=== PATIENT | female | born 1980 | race Caucasian/White ===

== ENCOUNTER 2017-02-25 18:21 | Emergency (ER) | payer MEDICARE, MEDICAID ==
[2017-02-25] MEDS ORDERED: Ketorolac 60 MG/2 ML SDV IM ONE (19:22)
--- NOTE | 2017-02-25 19:43 | EDM.PDOC ---
ED HPI LOWER BACK PAIN/INJURY - General Chief Complaint: Back Pain or Injury Stated Complaint: BACK PAIN RELATED TO SEIZURES Time Seen by Provider: 02/25/17 19:00 Source of Information: Reports: Patient History Limitations: Reports: No limitations - History of Present Illness INITIAL COMMENTS - FREE TEXT/NARRATIVE: History of present illness: [36-year-old female presenting with long-standing history of seizures, she indicates she had a seizure while lying in bed approximately month ago and that after the seizure she had felt pain in her lower back which was not within her previous experience. Patient indicates that it is not abnormal to how various and sundry pain in different locations of her body after a grand mal seizure but indicates usually is self resolving within 2 weeks plus or minus.] Review of systems: As per history of present illness and below otherwise all systems reviewed and negative. Past medical history: As per history of present illness and as reviewed below otherwise noncontributory. Surgical history: As per history of present illness and as reviewed below otherwise noncontributory. Social history: No reported history of drug or alcohol abuse. Family history: As per history of present illness and as reviewed below otherwise noncontributory. Physical exam: HEENT: Atraumatic, normocephalic, pupils reactive, negative for conjunctival pallor or scleral icterus, mucous membranes moist, throat clear, neck supple, nontender, trachea midline. Lungs: Clear to auscultation, breath sounds equal bilaterally, chest nontender. Heart: S1S2, regular, negative for clicks, rubs, or JVD. Abdomen: Soft, nondistended, nontender. Negative for masses or hepatosplenomegaly. Negative for costovertebral tenderness. Pelvis: Stable nontender. Genitourinary: Deferred. Rectal: Deferred. Extremities: Atraumatic, negative for cords or calf pain. Neurovascular unremarkable. Neuro: Awake, alert, oriented. Cranial nerves II through XII unremarkable. Cerebellum unremarkable. Motor and sensory unremarkable throughout. Exam nonfocal. Patient is without neurological deficits but has significant amount of reading and finds it difficult to participate in a full thorough neuro exam. She indicates this has been ongoing for a month and that she has sought care from an ER in [place] as well as with her PCP. Her PCP prescribed physical therapy for her which is 2 months delayed secondary to lack of appointments available. She was provided with home exercises which she finds to painful to participate in. Patient is from out [facility], only be here for a few days but came in because the pain was intractable. Patient does indicate that she had taken some of her mothers Neurontin as prescribed for her mother for DDD, and that was the only thing that has given her some relief. Diagnostics: [X-ray of lumbar and sacrococcygeal area] Therapeutics: [Toradol 60mg IM] Impression: [Low back pain] Plan: [Brief run of Neurontin, patient are he has muscle relaxer from PCP] Definitive disposition and diagnosis as appropriate pending reevaluation and review of above. - Related Data Allergies/ADRs: Allergies Allergy/AdvReac Type Severity Reaction Status Date / Time meperidine [From Demerol] Allergy Hives Verified 02/25/17 19:21 methylprednisolone Allergy Nausea and Verified 02/25/17 19:21 [From Medrol] Vomiting nalbuphine [From Nubain] Allergy Nausea and Verified 02/25/17 19:21 Vomiting ondansetron Allergy Hives Verified 02/25/17 19:21 [From Zofran (as hydrochloride)] sulfamethoxazole Allergy Itching Verified 02/25/17 19:21 [From Bactrim] sumatriptan [From Imitrex] Allergy Headache Verified 02/25/17 19:21 trimethoprim [From Bactrim] Allergy Itching Verified 02/25/17 19:21 Home Meds: Home Meds Gabapentin [Neurontin] 100 mg PO TID #30 capsule 02/25/17 [Rx] Pantoprazole Sodium [Protonix] 40 mg PO DAILY 02/25/17 [History] Zonisamide [Zonegran] 100 mg 02/25/17 [History] carBAMazepine [Tegretol] 200 mg PO BID 02/25/17 [History] clonazePAM [Clonazepam] 1 mg PO TID 02/25/17 [History] Past Medical History Neurological History: Reports: Seizure Other Neuro History: Epilepsy ED ROS GENERAL - Review of Systems Review Of Systems: See Below (See history of present illness) ED EXAM,LOWER BACK PAIN/INJURY - Physical Exam Exam: See Below (See history of present illness) Course - Vital Signs Last Recorded V/S: Last Vital Signs Temp 36.1 C 02/25/17 18:59 Pulse 97 02/25/17 18:59 Resp 16 02/25/17 18:59 BP 120/84 02/25/17 18:59 Pulse Ox 98 02/25/17 18:59 - Orders/Labs/Meds Orders: Active Orders 24 hr Category Date Time Status Lumbar Spine 2 or 3V [CR] Stat Exams 02/25/17 19:22 Taken Sacrum Coccyx Min 2V [CR] Stat Exams 02/25/17 19:22 Taken Meds: Medications Discontinued Medications Generic Name Dose Route Start Last Admin Trade Name Amara PRN Reason Stop Dose Admin Hydromorphone HCl 1 mg 02/25/17 20:07 02/25/17 20:19 Dilaudid IM 02/25/17 20:08 1 mg ONETIME ONE Administration Ketorolac Tromethamine 60 mg 02/25/17 19:22 02/25/17 20:20 Toradol IM 02/25/17 19:23 Not Given ONETIME ONE Departure - Departure Time of Disposition: 20:29 Disposition: Home, Self-Care 01 Condition: good Clinical Impression: Back pain Qualifiers: Back pain location: low back pain Chronicity: chronic Back pain laterality: midline Sciatica presence: unspecified whether sciatica present Qualified Code(s ): M54.5 - Low back pain; G89.29 - Other chronic pain Prescriptions: Gabapentin [Neurontin] 100 mg PO TID #30 capsule Forms: ED Department Discharge Additional Instructions: The following information is given to patients seen in the emergency department who are being discharged to home. This information is to outline your options for follow-up care. We provide all patients seen in our emergency department with a follow-up referral. The need for follow-up, as well as the timing and circumstances, are variable depending upon the specifics of your emergency department visit. If you don't have a primary care physician on staff, we will provide you with a referral. We always advise you to contact your personal physician following an emergency department visit to inform them of the circumstance of the visit and for follow-up with them and/or the need for any referrals to a consulting specialist. The emergency department will also refer you to a specialist when appropriate. This referral assures that you have the opportunity for follow-up care with a specialist. All of these measure are taken in an effort to provide you with optimal care, which includes your follow-up. Under all circumstances we always encourage you to contact your private physician who remains a resource for coordinating your care. When calling for follow-up care, please make the office aware that this follow-up is from your recent emergency room visit. If for any reason you are refused follow-up, please contact the Emergency Department at and asked to speak to the emergency department charge nurse. Take medication as directed All the PCP as discussed beginning of next week as soon as possible return ED as needed as discussed - My Orders Last 24 Hours: My Active Orders 02/25/17 19:22 Lumbar Spine 2 or 3V [CR] Stat Sacrum Coccyx Min 2V [CR] Stat - Assessment/Plan Last 24 Hours: My Active Orders 02/25/17 19:22 Lumbar Spine 2 or 3V [CR] Stat Sacrum Coccyx Min 2V [CR] Stat
[2017-02-25] MEDS ORDERED: HYDROmorphone 1 MG/ML Syringe IM ONE (20:07)
[2017-02-25 20:56] VITALS: BP 118/76
--- NOTE | 2017-02-26 10:30 | CR ---
EXAM DATE: 02/25/17 PATIENT'S AGE: 36 Patient: February Facility: [place], [place] Site . Site : 1980 Study: XRay Pelvis SACRUM COCCYX [id number]/12/2017 7:58:17 PM Ordering Physician: Doctor Schumacher Final Report: INDICATION: PAIN TECHNIQUE: Sacrum/coccyx series COMPARISON: None FINDINGS: Bones: No fractures or bone lesions. Joint spaces: Unremarkable. Other: 2 tubal ligation clips within the left pelvis. IMPRESSION: No acute bony abnormality. Dictated by Oscar Wells MD @ 02/25/2017 8:09:55 PM Dictated by: Oscar Wells MD @ 02/25/2017 20:10:04 (Electronic Signature) Report Signed by Proxy and Original Signed Document filed in the Medical Record. MTDColleen
--- NOTE | 2017-02-26 10:31 | CR ---
EXAM DATE: 02/25/17 PATIENT'S AGE: 36 Patient: February Facility: [place], [place] Site . Site : 1980 Study: XRay Spine Lumbar [id number]/12/2017 7:58:37 PM Ordering Physician: Doctor Schumacher Final Report: INDICATION: PAIN TECHNIQUE: Lumbar spine 2 view COMPARISON: None FINDINGS: Bones: Electrode curvature of the lumbar spine. No fractures or significant bone lesions. Joints: Mild multilevel degenerative changes. Soft tissues: 2 tubal ligation clips within the left pelvis. IMPRESSION: No acute abnormality of the lumbar spine. Dictated by Oscar Wells MD @ 02/25/2017 8:12:49 PM Dictated by: Oscar Wells MD @ 02/25/2017 20:12:58 (Electronic Signature) Report Signed by Proxy and Original Signed Document filed in the Medical Record. MTDColleen
== END 2017-02-25 20:42 | disposition home or self-care (01) ==
LOC: MW.ED 18:21
DX: M54.5 Low back pain (principal); G89.29 Other chronic pain; Z88.8 Allergy status to other drugs, medicaments and biological substances; Z88.2 Allergy status to sulfonamides; Z79.899 Other long term (current) drug therapy
CPT/HCPCS: 72100; 72220; 96372; 99283; J1170

== ENCOUNTER 2017-12-18 19:25 | Emergency (ER) | payer MEDICARE, MEDICAID ==
--- NOTE | 2017-12-18 20:01 | EDM.PDOC ---
ED HPI GENERAL MEDICAL PROBLEM - General Stated Complaint: PT HAS BACK PAIN Time Seen by Provider: 12/18/17 20:00 Source of Information: Reports: Patient - History of Present Illness INITIAL COMMENTS - FREE TEXT/NARRATIVE: HISTORY AND PHYSICAL: History of present illness: [Patient had a slip and fall on the ice 248 hours prior to arrival She arrives by private vehicle She states that she slipped and fell to her bottom twice since she has had 6 out of 10 low back pain radiating down the right leg no footdrop or saddle anesthesia, she complains of a numbness sensation in her leg but has full sensory, right leg raise past 30 since not increased radiculopathy she does have discomfort with this, with distraction she is able to raise her leg with minimal pain, tender over right paraspinous muscle in the lumbar area. She also complains of 6 out of 10 foot and ankle pain unable to bear weight entire limb is neurovascularly intact no bruising she is tender on the medial malleolus as well as dorsum of her foot unable to bear weight with due to pain No fever nausea vomiting chills sweats no chest pain shortness breath headache dizziness or palpitation no bowel or urine symptoms no headache injury or loss of consciousness Review of systems: As per history of present illness and below otherwise all systems reviewed and negative. Past medical history: As per history of present illness and as reviewed below otherwise noncontributory. Surgical history: As per history of present illness and as reviewed below otherwise noncontributory. Social history: No reported history of drug or alcohol abuse. Family history: As per history of present illness and as reviewed below otherwise noncontributory. Physical exam: HEENT: Atraumatic, normocephalic, pupils reactive, negative for conjunctival pallor or scleral icterus, mucous membranes moist, throat clear, neck supple, nontender, trachea midline. Lungs: Clear to auscultation, breath sounds equal bilaterally, chest nontender. Heart: S1S2, regular, negative for clicks, rubs, or JVD. Abdomen: Soft, nondistended, nontender. Negative for masses or hepatosplenomegaly. Negative for costovertebral tenderness. Pelvis: Stable nontender. Genitourinary: Deferred. Rectal: Deferred. Extremities: Atraumatic, negative for cords or calf pain. Neurovascular unremarkable. Neuro: Awake, alert, oriented. Cranial nerves II through XII unremarkable. Cerebellum unremarkable. Motor and sensory unremarkable throughout. Exam nonfocal. No footdrop or saddle anesthesia Right lower extremity as per history of present illness Diagnostics: Lumbar spine plain films UA hCG Foot 3 views Ankle 3 views Patient refuses splint for ankle-foot/sprain Refuses crutches Request by Mat as it's the only thing that will work ] Therapeutics: [Toradol 60 IM Cataflam 50 mg by mouth 3 times a day when necessary #30 no refill Robaxin 1000 mg by mouth 4 times a day when necessary #40 no refill ] Impression: [Low back pain, right sciatic distribution pain numbness Right paraspinous muscle spasm lumbar spine Right foot and ankle pain post fall Definitive disposition and diagnosis as appropriate pending reevaluation and review of above. lower back Pain Score (Numeric/FACES): 10 - Related Data Allergies Allergy/AdvReac Type Severity Reaction Status Date / Time meperidine [From Demerol] Allergy Hives Verified 12/18/17 20:04 methylprednisolone Allergy Nausea and Verified 12/18/17 20:04 [From Medrol] Vomiting nalbuphine [From Nubain] Allergy Nausea and Verified 12/18/17 20:04 Vomiting ondansetron Allergy Hives Verified 12/18/17 20:04 [From Zofran (as hydrochloride)] sulfamethoxazole Allergy Itching Verified 12/18/17 20:04 [From Bactrim] sumatriptan [From Imitrex] Allergy Headache Verified 12/18/17 20:04 trimethoprim [From Bactrim] Allergy Itching Verified 12/18/17 20:04 Home Meds: Home Meds Gabapentin [Neurontin] 100 mg PO TID #30 capsule 02/25/17 [Rx] Pantoprazole Sodium [Protonix] 40 mg PO DAILY 02/25/17 [History] Zonisamide [Zonegran] 100 mg 02/25/17 [History] carBAMazepine [Tegretol] 200 mg PO BID 02/25/17 [History] clonazePAM [Clonazepam] 1 mg PO TID 02/25/17 [History] Past Medical History Neurological History: Reports: Seizure Other Neuro History: Epilepsy ED ROS GENERAL - Review of Systems Review Of Systems: ROS reveals no pertinent complaints other than HPI. ED EXAM, GENERAL - Physical Exam Exam: See Below Course - Vital Signs Last Recorded V/S: Last Vital Signs Temp 97.5 F 12/18/17 20:04 Pulse 73 12/18/17 20:04 Resp 18 12/18/17 20:04 BP 129/84 12/18/17 20:04 Pulse Ox 98 12/18/17 20:04 - Orders/Labs/Meds Orders: Active Orders 24 hr Category Date Time Status Ankle Min 3V Rt [CR] Stat Exams 12/18/17 20:08 Taken Foot Comp Min 3V Rt [CR] Stat Exams 12/18/17 20:08 Taken Lumbar Spine 2 or 3V [CR] Stat Exams 12/18/17 20:00 Ordered Meds: Medications Discontinued Medications Generic Name Dose Route Start Last Admin Trade Name Amara PRN Reason Stop Dose Admin Ketorolac Tromethamine 60 mg 12/18/17 20:11 12/18/17 20:24 Toradol IM 12/18/17 20:12 60 mg ONETIME ONE Administration Departure - Departure Time of Disposition: 22:00 Disposition: Home, Self-Care 01 Condition: Good Clinical Impression: Low back pain, Foot pain, right - Discharge Information Referrals: PCP,None [Primary Care Provider] - Additional Instructions: Medication as prescribed Continue current home medications Return if symptoms persist or worsen Follow-up with primary care in 2 weeks at [facility] Unable to gain [place] [address] [facility] [address] [place] [address] The following information is given to patients seen in the emergency department who are being discharged to home. This information is to outline your options for follow-up care. We provide all patients seen in our emergency department with a follow-up referral. The need for follow-up, as well as the timing and circumstances, are variable depending upon the specifics of your emergency department visit. If you don't have a primary care physician on staff, we will provide you with a referral. We always advise you to contact your personal physician following an emergency department visit to inform them of the circumstance of the visit and for follow-up with them and/or the need for any referrals to a consulting specialist. The emergency department will also refer you to a specialist when appropriate. This referral assures that you have the opportunity for follow-up care with a specialist. All of these measure are taken in an effort to provide you with optimal care, which includes your follow-up. Under all circumstances we always encourage you to contact your private physician who remains a resource for coordinating your care. When calling for follow-up care, please make the office aware that this follow-up is from your recent emergency room visit. If for any reason you are refused follow-up, please contact the [facility] emergency department at and asked to speak to the emergency department charge nurse. - My Orders Last 24 Hours: My Active Orders 12/18/17 20:00 Lumbar Spine 2 or 3V [CR] Stat 12/18/17 20:08 Ankle Min 3V Rt [CR] Stat Foot Comp Min 3V Rt [CR] Stat - Assessment/Plan Last 24 Hours: My Active Orders 12/18/17 20:00 Lumbar Spine 2 or 3V [CR] Stat 12/18/17 20:08 Ankle Min 3V Rt [CR] Stat Foot Comp Min 3V Rt [CR] Stat
[2017-12-18] MEDS ORDERED: Ketorolac 60 MG/2 ML SDV IM ONE (20:11)
[2017-12-18] MEDS ORDERED: Acetaminophen/HYDROcodone 325-5 MG Tab PO ONE (22:01)
[2017-12-19 02:13] VITALS: BP 117/77
--- NOTE | 2017-12-21 11:31 | CR ---
EXAM DATE: 12/18/17 PATIENT'S AGE: 37 Patient: February Facility: [place], [place] Site . Site : 1980 Study: XRay Extremity Right foot [id number]/2/2018 9:30:17 PM Ordering Physician: Richar Dumont Final Report: INDICATION: pain, fall TECHNIQUE: Right foot 3 views COMPARISON: None. FINDINGS: Bones: Alignment is normal. No fractures or bone lesions. Joint spaces: Unremarkable. Soft tissues: Unremarkable. IMPRESSION: Unremarkable right foot. Dictated by: Jeffry Morris MD @ 12/18/2017 21:47:21 (Electronic Signature) Report Signed by Proxy. OLAMIDE
--- NOTE | 2017-12-21 11:33 | CR ---
EXAM DATE: 12/18/17 PATIENT'S AGE: 37 Patient: February Facility: [place], [place] Site . Site : 1980 Study: XRay Spine Lumbar [id number]/2/2018 9:30:42 PM Ordering Physician: Richar Dumont Final Report: INDICATION: fall TECHNIQUE: Lumbar spine 3 views. COMPARISON: None. FINDINGS: Bones: Alignment is normal. No fractures or bone lesions. Joint spaces: Disc spaces are normal. Facet joints are normal. Soft tissues: Negative. IMPRESSION: Negative lumbar spine. Dictated by: Jeffry Morris MD @ 12/18/2017 21:49:13 (Electronic Signature) Report Signed by Proxy. [facility] CENTERColleen
--- NOTE | 2017-12-21 11:35 | CR ---
EXAM DATE: 12/18/17 PATIENT'S AGE: 37 Patient: February Facility: [place], [place] Site . Site : 1980 Study: XRay Extremity Right ankle [id number]/2/2018 9:31:58 PM Ordering Physician: Richar Dumont Final Report: INDICATION: fall TECHNIQUE: Right ankle 3 views. COMPARISON: None. FINDINGS: Bones: Alignment is normal. No fractures or bone lesions. Joint spaces: Unremarkable. Soft tissues: Unremarkable. IMPRESSION: Unremarkable right ankle. Dictated by: Jeffry Morris MD @ 12/18/2017 21:43:15 (Electronic Signature) Report Signed by Proxy. [facility]OSPITALColleen
== END 2017-12-18 22:33 | disposition home or self-care (01) ==
LOC: MW.ED 19:25
DX: M54.5 Low back pain (principal); M79.671 Pain in right foot; M25.571 Pain in right ankle and joints of right foot; G40.909 Epilepsy, unspecified, not intractable, without status epilepticus; Z79.899 Other long term (current) drug therapy; Z88.2 Allergy status to sulfonamides; Z88.6 Allergy status to analgesic agent; Z88.8 Allergy status to other drugs, medicaments and biological substances; W19.XXXA Unspecified fall, initial encounter
CPT/HCPCS: 73610; 73630; 96372; 99283; A9270; J1885; 72100; 72100-26; 99284

== ENCOUNTER 2018-01-12 08:37 | Emergency (ER) | payer MEDICARE, MEDICAID ==
[2018-01-12] MEDS ORDERED: Sodium Chloride 0.9% 1,000 ML IV ONE (08:57)
[2018-01-12] MEDS ORDERED: Ketorolac 30 MG/ML SDV IVPUSH ONE (08:57)
[2018-01-12] MEDS ORDERED: Sodium Chloride 0.9% 500 ML IV SCH (09:30)
[2018-01-12] MEDS ORDERED: Promethazine 25 MG/ML SDV IM ONE (09:38)
[2018-01-12] MEDS ORDERED: diphenhydrAMINE 50 MG/ML SDV IVPUSH ONE (09:38)
[2018-01-12] MEDS ORDERED: LORazepam 2 MG/ML SDV IVPUSH ONE (09:38)
--- NOTE | 2018-01-12 09:41 | EDM.PDOC ---
ED HPI GENERAL MEDICAL PROBLEM - General Chief Complaint: Headache Stated Complaint: MIGRAINE Time Seen by Provider: 01/12/18 09:39 Source of Information: Reports: Patient - History of Present Illness INITIAL COMMENTS - FREE TEXT/NARRATIVE: HISTORY AND PHYSICAL: History of present illness: [Patient with migraine history long-standing presents with migraine symptoms consistent with her usual aura and nausea rates pain 7 out of 10 nonradiating, she states that her head hurts, she is considered for Botox injection trial scheduled on January 22 with her primary care in [place], her last head CT was performed in [place] within the last 6 months. No fever vomiting chills sweats no chest pain shortness breath dizziness or palpitation no bowel or urine symptoms Patient is somewhat mal- content as Lortab and Dilaudid are generally "the only thing that works" Posttreatment patient is napping comfortably in no distress no pain behaviors ] Patient does follow with a primary care in [place] who has referred her for Botox scheduled on January 22 for these injections Review of systems: As per history of present illness and below otherwise all systems reviewed and negative. Past medical history: As per history of present illness and as reviewed below otherwise noncontributory. Surgical history: As per history of present illness and as reviewed below otherwise noncontributory. Social history: No reported history of drug or alcohol abuse. Family history: As per history of present illness and as reviewed below otherwise noncontributory. Physical exam: HEENT: Atraumatic, normocephalic, pupils reactive, negative for conjunctival pallor or scleral icterus, mucous membranes moist, throat clear, neck supple, nontender, trachea midline. Lungs: Clear to auscultation, breath sounds equal bilaterally, chest nontender. Heart: S1S2, regular, negative for clicks, rubs, or JVD. Abdomen: Soft, nondistended, nontender. Negative for masses or hepatosplenomegaly. Negative for costovertebral tenderness. Pelvis: Stable nontender. Genitourinary: Deferred. Rectal: Deferred. Extremities: Atraumatic, negative for cords or calf pain. Neurovascular unremarkable. Neuro: Awake, alert, oriented. Cranial nerves II through XII unremarkable. Cerebellum unremarkable. Motor and sensory unremarkable throughout. Exam nonfocal. Diagnostics: [Recent head CT on file Malathi jose ] Therapeutics: [1 L normal saline bolus Phenergan 25 mg IM Ativan 1 mg IV Benadryl 50 mg IV Toradol 30 mg IV Maxalt 10 mg by mouth every 2 hours when necessary #30 no refill Fioricet No. 30 one to 2 by mouth every 6 when necessary Follow-up with primary care for Botox consideration for headache ] Impression: [Migraine headache] Definitive disposition and diagnosis as appropriate pending reevaluation and review of above. Headache Pain Score (Numeric/FACES): 10 - Related Data Allergies Allergy/AdvReac Type Severity Reaction Status Date / Time meperidine [From Demerol] Allergy Hives Verified 01/12/18 08:47 methylprednisolone Allergy Nausea and Verified 01/12/18 08:47 [From Medrol] Vomiting nalbuphine [From Nubain] Allergy Nausea and Verified 01/12/18 08:47 Vomiting ondansetron Allergy Hives Verified 01/12/18 08:47 [From Zofran (as hydrochloride)] sulfamethoxazole Allergy Itching Verified 01/12/18 08:47 [From Bactrim] sumatriptan [From Imitrex] Allergy Headache Verified 01/12/18 08:47 trimethoprim [From Bactrim] Allergy Itching Verified 01/12/18 08:47 Home Meds: Home Meds Gabapentin [Neurontin] 100 mg PO TID #30 capsule 02/25/17 [Rx] Pantoprazole Sodium [Protonix] 40 mg PO DAILY 02/25/17 [History] Zonisamide [Zonegran] 100 mg 02/25/17 [History] carBAMazepine [Tegretol] 200 mg PO BID 02/25/17 [History] clonazePAM [Clonazepam] 1 mg PO TID 02/25/17 [History] Past Medical History HEENT History: Reports: None Cardiovascular History: Reports: None Respiratory History: Reports: None Gastrointestinal History: Reports: None Genitourinary History: Reports: None 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 History: Reports: None Neurological History: Reports: Headaches, Chronic, Seizure Other Neuro History: Epilepsy Psychiatric History: Reports: Anxiety Endocrine/Metabolic History: Reports: None Hematologic History: Reports: None Immunologic History: Reports: None Oncologic (Cancer) History: Reports: None Dermatologic History: Reports: None - Infectious Disease History Infectious Disease History: Reports: Chicken Pox, Measles, Mumps - Past Surgical History Head Surgeries/Procedures: Reports: None Female Surgical History: Reports: Tubal Ligation Social & Family History - Family History Family Medical History: Noncontributory - Tobacco Use Smoking Status *Q: Never Smoker - Caffeine Use Caffeine Use: Reports: Soda - Recreational Drug Use Recreational Drug Use: No ED ROS GENERAL - Review of Systems Review Of Systems: ROS reveals no pertinent complaints other than HPI. ED EXAM, GENERAL - Physical Exam Exam: See Below Course - Orders/Labs/Meds Orders: Active Orders 24 hr Category Date Time Status Sodium Chloride 0.9% [Normal Saline] 500 ml Med 01/12/18 09:30 Active IV STAT Medication Orders Sodium Chloride (Normal Saline) 500 mls @ 999 mls/hr IV STAT DEREK Last Admin: 01/12/18 09:19 Dose: 999 mls/hr Meds: Medications Generic Name Dose Route Start Last Admin Trade Name Freq PRN Reason Stop Dose Admin Sodium Chloride 500 mls @ 999 mls/hr 01/12/18 09:30 01/12/18 09:19 Normal Saline IV 999 mls/hr STAT DEREK Administration Discontinued Medications Generic Name Dose Route Start Last Admin Trade Name Freq PRN Reason Stop Dose Admin Diphenhydramine HCl 50 mg 01/12/18 09:38 01/12/18 10:24 Benadryl IVPUSH 01/12/18 09:39 50 mg ONETIME ONE Administration Sodium Chloride 1,000 mls @ 999 mls/hr 01/12/18 08:57 01/12/18 09:19 Normal Saline IV 01/12/18 09:57 Not Given STAT ONE Ketorolac Tromethamine 30 mg 01/12/18 08:57 01/12/18 09:18 Toradol IVPUSH 01/12/18 08:58 30 mg ONETIME ONE Administration Lorazepam 1 mg 01/12/18 09:38 01/12/18 10:24 Ativan IVPUSH 01/12/18 09:39 1 mg ONETIME ONE Administration Promethazine HCl 25 mg 01/12/18 09:38 01/12/18 10:24 Phenergan IM 01/12/18 09:39 25 mg ONETIME ONE Administration Departure - Departure Time of Disposition: 10:54 Disposition: Home, Self-Care 01 Condition: Good Clinical Impression: Migraine - Discharge Information Referrals: Marcos Mcneil [Primary Care Provider] - Forms: ED Department Discharge Additional Instructions: Medication as prescribed Return if symptoms persist or worsen Follow-up with primary care for Botox injections as scheduled The following information is given to patients seen in the emergency department who are being discharged to home. This information is to outline your options for follow-up care. We provide all patients seen in our emergency department with a follow-up referral. The need for follow-up, as well as the timing and circumstances, are variable depending upon the specifics of your emergency department visit. If you don't have a primary care physician on staff, we will provide you with a referral. We always advise you to contact your personal physician following an emergency department visit to inform them of the circumstance of the visit and for follow-up with them and/or the need for any referrals to a consulting specialist. The emergency department will also refer you to a specialist when appropriate. This referral assures that you have the opportunity for follow-up care with a specialist. All of these measure are taken in an effort to provide you with optimal care, which includes your follow-up. Under all circumstances we always encourage you to contact your private physician who remains a resource for coordinating your care. When calling for follow-up care, please make the office aware that this follow-up is from your recent emergency room visit. If for any reason you are refused follow-up, please contact the [facility] emergency department at and asked to speak to the emergency department charge nurse. - My Orders Last 24 Hours: My Active Orders 01/12/18 09:30 Sodium Chloride 0.9% [Normal Saline] 500 ml IV STAT - Assessment/Plan Last 24 Hours: My Active Orders 01/12/18 09:30 Sodium Chloride 0.9% [Normal Saline] 500 ml IV STAT
[2018-01-12 11:03] VITALS: BP 121/77
== END 2018-01-12 11:04 | disposition home or self-care (01) ==
LOC: MW.ED 08:37
DX: G43.909 Migraine, unspecified, not intractable, without status migrainosus (principal); Z88.8 Allergy status to other drugs, medicaments and biological substances; Z88.2 Allergy status to sulfonamides; Z88.1 Allergy status to other antibiotic agents; Z79.899 Other long term (current) drug therapy
CPT/HCPCS: 96361; 96372; 96374; 96375; 99283; J1200; J1885; J2060; J2550; J7040

== ENCOUNTER 2018-01-27 15:59 | Inpatient (IN) | payer MEDICARE, MEDICAID ==
[2018-01-27] MEDS ORDERED: Ketorolac 30 MG/ML SDV IVPUSH ONE (16:04)
[2018-01-27] MEDS ORDERED: Sodium Chloride 0.9% 1,000 ML IV ONE (16:04)
--- NOTE | 2018-01-27 16:05 | EDM.PDOC ---
ED HPI GENERAL MEDICAL PROBLEM - General Stated Complaint: ABD PAIN Time Seen by Provider: 01/27/18 16:05 Source of Information: Reports: Patient - History of Present Illness INITIAL COMMENTS - FREE TEXT/NARRATIVE: HISTORY AND PHYSICAL: History of present illness: []Patient presents with right upper quadrant pain 10 out of 10 increasing over the last week if unable to eat any food due to pain Intractable nausea no vomiting at current no loose stools no chest pain shortness breath headache dizziness palpitation no urine symptoms Review of systems: As per history of present illness and below otherwise all systems reviewed and negative. Past medical history: As per history of present illness and as reviewed below otherwise noncontributory. Surgical history: As per history of present illness and as reviewed below otherwise noncontributory. Social history: No reported history of drug or alcohol abuse. Family history: As per history of present illness and as reviewed below otherwise noncontributory. Physical exam: HEENT: Atraumatic, normocephalic, pupils reactive, negative for conjunctival pallor or scleral icterus, mucous membranes moist, throat clear, neck supple, nontender, trachea midline. Lungs: Clear to auscultation, breath sounds equal bilaterally, chest nontender. Heart: S1S2, regular, negative for clicks, rubs, or JVD. Abdomen: Soft, nondistended, nontender. Negative for masses or hepatosplenomegaly. Negative for costovertebral tenderness. Pelvis: Stable nontender. Genitourinary: Deferred. Rectal: Deferred. Extremities: Atraumatic, negative for cords or calf pain. Neurovascular unremarkable. Neuro: Awake, alert, oriented. Cranial nerves II through XII unremarkable. Cerebellum unremarkable. Motor and sensory unremarkable throughout. Exam nonfocal. Diagnostics: [CBC CMP amylase lipase troponin ]Ultrasound right upper quadrant Therapeutics: [Liter normal saline bolus Toradol 30 mg IV] Reglan 10 mg IV Impression: Cholelithiasis Intractable pain Intractable nausea [Abdominal pain] Definitive disposition and diagnosis as appropriate pending reevaluation and review of above. RLQ Pain Score (Numeric/FACES): 10 - Related Data Allergies Allergy/AdvReac Type Severity Reaction Status Date / Time meperidine [From Demerol] Allergy Hives Verified 01/27/18 16:10 methylprednisolone Allergy Nausea and Verified 01/27/18 16:10 [From Medrol] Vomiting nalbuphine [From Nubain] Allergy Nausea and Verified 01/27/18 16:10 Vomiting ondansetron Allergy Hives Verified 01/27/18 16:10 [From Zofran (as hydrochloride)] sulfamethoxazole Allergy Itching Verified 01/27/18 16:10 [From Bactrim] sumatriptan [From Imitrex] Allergy Headache Verified 01/27/18 16:10 trimethoprim [From Bactrim] Allergy Itching Verified 01/27/18 16:10 Home Meds: Home Meds Gabapentin [Neurontin] 100 mg PO TID #30 capsule 02/25/17 [Rx] Pantoprazole Sodium [Protonix] 40 mg PO DAILY 02/25/17 [History] Zonisamide [Zonegran] 100 mg PO DAILY 02/25/17 [History] carBAMazepine [Tegretol] 200 mg PO BID 02/25/17 [History] clonazePAM [Clonazepam] 1 mg PO TID 02/25/17 [History] Past Medical History HEENT History: Reports: None Cardiovascular History: Reports: None Respiratory History: Reports: None Gastrointestinal History: Reports: None Genitourinary History: Reports: 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 Neurological History: Reports: Headaches, Chronic, Seizure Other Neuro History: Epilepsy Psychiatric History: Reports: Anxiety Endocrine/Metabolic History: Reports: None Hematologic History: Reports: None Immunologic History: Reports: None Oncologic (Cancer) History: Reports: None Dermatologic History: Reports: None - Infectious Disease History Infectious Disease History: Reports: Chicken Pox, Measles, Mumps - Past Surgical History Head Surgeries/Procedures: Reports: None Female Surgical History: Reports: Tubal Ligation Social & Family History - Family History Family Medical History: Noncontributory - Tobacco Use Smoking Status *Q: Never Smoker - Caffeine Use Caffeine Use: Reports: Soda - Recreational Drug Use Recreational Drug Use: No ED ROS GENERAL - Review of Systems Review Of Systems: ROS reveals no pertinent complaints other than HPI. ED EXAM, GENERAL - Physical Exam Exam: See Below Course - Vital Signs Last Recorded V/S: Last Vital Signs Temp 97.8 F 01/27/18 18:33 Pulse 83 01/27/18 18:33 Resp 18 01/27/18 18:33 BP 123/76 01/27/18 18:33 Pulse Ox 98 01/27/18 18:33 - Orders/Labs/Meds Orders: Active Orders 24 hr Category Date Time Status Abdomen Ltd [US] Stat Exams 01/27/18 16:23 Taken Labs: Laboratory Tests 01/27/18 01/27/18 01/27/18 Range/Units 16:15 16:15 17:25 WBC 8.72 (4.0-11.0) K/uL RBC 4.74 (4.30-5.90) M/uL Hgb 13.0 (12.0-16.0) g/dL Hct 39.1 (36.0-46.0) % MCV 82.5 (80.0-98.0) fL MCH 27.4 (27.0-32.0) pg MCHC 33.2 (31.0-37.0) g/dL RDW Std Deviation 48.5 (28.0-62.0) fl RDW Coeff of Pepe 16 H (11.0-15.0) % Plt Count 389 (150-400) K/uL MPV 9.90 (7.40-12.00) fL Neut % (Auto) 49.8 (48.0-80.0) % Lymph % (Auto) 42.0 H (16.0-40.0) % [place] % (Auto) 7.1 (0.0-15.0) % Eos % (Auto) 0.9 (0.0-7.0) % Baso % (Auto) 0.2 (0.0-1.5) % Neut # (Auto) 4.3 (1.4-5.7) K/uL Lymph # (Auto) 3.7 H (0.6-2.4) K/uL [place] # (Auto) 0.6 (0.0-0.8) K/uL Eos # (Auto) 0.1 (0.0-0.7) K/uL Baso # (Auto) 0.0 (0.0-0.1) K/uL Nucleated RBC % 0.0 /100WBC Nucleated RBCs # 0 K/uL Sodium 135 L (136-145) mmol/L Potassium 3.4 L (3.5-5.1) mmol/L Chloride 103 (98-107) mmol/L Carbon Dioxide 19.1 L (21.0-32.0) mmol/L BUN 7 (7.0-18.0) mg/dL Creatinine 0.8 (0.6-1.0) mg/dL Est Cr Clr Drug Dosing 72.65 mL/min Estimated GFR (MDRD) > 60.0 ml/min Glucose 91 (74-106) mg/dL Calcium 9.3 (8.5-10.1) mg/dL Total Bilirubin 0.2 (0.2-1.0) mg/dL AST 19 (15-37) IU/L ALT 24 (14-63) IU/L Alkaline Phosphatase 97 (46-116) U/L Troponin I < 0.050 (0.000-0.056) ng/mL Total Protein 7.8 (6.4-8.2) g/dL Albumin 4.2 (3.4-5.0) g/dL Globulin 3.6 H (2.0-3.5) g/dL Albumin/Globulin Ratio 1.2 L (1.3-2.8) Amylase 30 (25-115) U/L Lipase 98 (73-393) U/L Urine Color YELLOW Urine Appearance CLEAR Urine pH 6.5 (5.0-8.0) Ur Specific [place] <= 1.005 (1.001-1.035) Urine Protein NEGATIVE (NEGATIVE) mg/dL Urine Glucose (UA) NEGATIVE (NEGATIVE) mg/dL Urine Ketones NEGATIVE (NEGATIVE) mg/dL Urine Occult Blood NEGATIVE (NEGATIVE) Urine Nitrite NEGATIVE (NEGATIVE) Urine Bilirubin NEGATIVE (NEGATIVE) Urine Urobilinogen 0.2 (<2.0) EU/dL Ur Leukocyte Esterase TRACE (NEGATIVE) Urine RBC 0-1 (0-2/HPF) Urine WBC 0-1 (0-5/HPF) Ur Epithelial Cells OCCASIONAL (NONE-FEW) Urine Bacteria RARE (NEGATIVE) Meds: Medications Discontinued Medications Generic Name Dose Route Start Last Admin Trade Name Freq PRN Reason Stop Dose Admin Hydromorphone HCl 0.5 mg 01/27/18 18:42 Dilaudid IVPUSH ONETIME PRN Pain Hydromorphone HCl 0.5 mg 01/27/18 18:52 01/27/18 18:57 Dilaudid IV 01/27/18 18:53 0.5 mg ONETIME ONE Administration Sodium Chloride 1,000 mls @ 999 mls/hr 01/27/18 16:04 Normal Saline IV 01/27/18 17:04 STAT ONE Lactated Ringer's 1,000 mls @ 999 mls/hr 01/27/18 16:21 01/27/18 16:33 Ringers, Lactated IV 01/27/18 17:21 999 mls/hr ONETIME ONE Administration Ketorolac Tromethamine 30 mg 01/27/18 16:04 01/27/18 16:36 Toradol IVPUSH 01/27/18 16:05 30 mg ONETIME ONE Administration Metoclopramide HCl 10 mg 01/27/18 16:31 01/27/18 16:46 Reglan IV 01/27/18 16:32 Not Given ONETIME ONE Morphine Sulfate 4 mg 01/27/18 17:40 01/27/18 17:45 Morphine IVPUSH 01/27/18 17:41 4 mg ONETIME ONE Administration Promethazine HCl 25 mg 01/27/18 16:49 01/27/18 16:56 Phenergan IM 01/27/18 16:50 25 mg ONETIME ONE Administration Departure - Departure Time of Disposition: 19:07 Disposition: Refer to Observation Condition: Fair Clinical Impression: Cholelithiasis - Discharge Information Referrals: Marcos Mcneil [Primary Care Provider] - - My Orders Last 24 Hours: My Active Orders 01/27/18 16:23 Abdomen Ltd [US] Stat - Assessment/Plan Last 24 Hours: My Active Orders 01/27/18 16:23 Abdomen Ltd [US] Stat
[2018-01-27] MEDS ORDERED: Lactated Ringers 1,000 ML IV ONE (16:21)
[2018-01-27] MEDS ORDERED: Metoclopramide 10 MG/2 ML SDV IV ONE (16:31)
[2018-01-27] MEDS ORDERED: Promethazine 25 MG/ML SDV IM ONE (16:49)
[2018-01-27 17:20] LABS: CHLORIDE,CL 103 mmol/L (98-107); SODIUM,NA 135 mmol/L (136-145)
[2018-01-27] MEDS ORDERED: Morphine 4 MG/ML Syringe IVPUSH ONE (17:40)
[2018-01-27] MEDS ORDERED: HYDROmorphone 2 MG/ML Syringe IVPUSH PRN (18:42)
[2018-01-27] MEDS ORDERED: HYDROmorphone 1 MG/ML Syringe IV ONE (18:52)
[2018-01-27] MEDS ORDERED: HYDROmorphone 2 MG/ML SDV IVPUSH ONE (19:14)
--- NOTE | 2018-01-27 19:52 | PCM.HP ---
H&P History of Present Illness - General Date of Service: 01/27/18 Admit Problem/Dx: Admission Diagnosis/Problem Admission Diagnosis/Problem Cholelithiasis Source of Information: Patient, Family, Provider - History of Present Illness Initial Comments - Free Text/Narative: She was seen in the ED with RUQ pain. She reports vomiting for several days with RUQ pain worse today. In the ED her abdominal ultrasound showed cholelithiasis. No fever She has no known prior history of cholelithiasis. RLQ Pain Score (Numeric/FACES): 10 - Related Data Allergies/Adverse Reactions: Allergies Allergy/AdvReac Type Severity Reaction Status Date / Time meperidine [From Demerol] Allergy Hives Verified 01/27/18 16:10 methylprednisolone Allergy Nausea and Verified 01/27/18 16:10 [From Medrol] Vomiting nalbuphine [From Nubain] Allergy Nausea and Verified 01/27/18 16:10 Vomiting ondansetron Allergy Hives Verified 01/27/18 16:10 [From Zofran (as hydrochloride)] sulfamethoxazole Allergy Itching Verified 01/27/18 16:10 [From Bactrim] sumatriptan [From Imitrex] Allergy Headache Verified 01/27/18 16:10 trimethoprim [From Bactrim] Allergy Itching Verified 01/27/18 16:10 Home Medications: Home Meds Gabapentin [Neurontin] 100 mg PO TID #30 capsule 02/25/17 [Rx] Pantoprazole Sodium [Protonix] 40 mg PO DAILY 02/25/17 [History] Zonisamide [Zonegran] 100 mg PO DAILY 02/25/17 [History] carBAMazepine [Tegretol] 200 mg PO BID 02/25/17 [History] clonazePAM [Clonazepam] 1 mg PO TID 02/25/17 [History] Past Medical History HEENT History: Reports: None Cardiovascular History: Reports: None Respiratory History: Reports: None Gastrointestinal History: Reports: None Genitourinary History: Reports: None 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 History: Reports: None Neurological History: Reports: Headaches, Chronic, Migraines, Seizure Other Neuro History: Epilepsy Psychiatric History: Reports: Anxiety Endocrine/Metabolic History: Reports: None Hematologic History: Reports: None Immunologic History: Reports: None Oncologic (Cancer) History: Reports: None Dermatologic History: Reports: None - Infectious Disease History Infectious Disease History: Reports: Chicken Pox, Measles, Mumps - Past Surgical History Head Surgeries/Procedures: Reports: None Female Surgical History: Reports: Tubal Ligation Social & Family History - Family History Family Medical History: Noncontributory - Tobacco Use Smoking Status *Q: Never Smoker Second Hand Smoke Exposure: No - Caffeine Use Caffeine Use: Reports: Soda - Recreational Drug Use Recreational Drug Use: No H&P Review of Systems - Review of Systems: Review Of Systems: See Below General: Denies: Fever, Chills Pulmonary: Denies: Shortness of Breath, Cough, Sputum Cardiovascular: Denies: Chest Pain, Palpitations Gastrointestinal: Reports: Abdominal Pain, Nausea. Denies: Black Stool, Bloody Stool, Hematochezia, Melena Genitourinary: Denies: Dysuria, Hematuria Skin: Denies: Cyanosis Psychiatric: Denies: Confusion Review of Systems Comment:: she uses oxycodone at home for back pain and headaches Exam - Exam Exam: See Below - Vital Signs Vital Signs: Last Vital Signs Temp 97.8 F 01/27/18 18:33 Pulse 97 01/27/18 19:44 Resp 17 01/27/18 19:44 BP 97/67 01/27/18 19:44 Pulse Ox 95 01/27/18 19:45 Weight: 78.471 kg - Exam General: Alert, Oriented HEENT: Other (dry oral mucosa) Neck: Supple Lungs: Clear to Auscultation, Normal Respiratory Effort Cardiovascular: Regular Rate, Regular Rhythm GI/Abdominal Exam: Soft, Other (moderate RUQ tenderness). No: Non-Tender Skin: Warm, Dry Neurological: Cranial Nerves Intact, Normal Speech Neuro Extensive - Mental Status: Normal Mood/Affect Psychiatric: No: Agitated - Patient Data Lab Results Last 24 hrs: Laboratory Results - last 24 hr 01/27/18 01/27/18 01/27/18 Range/Units 16:15 16:15 17:25 WBC 8.72 (4.0-11.0) K/uL RBC 4.74 (4.30-5.90) M/uL Hgb 13.0 (12.0-16.0) g/dL Hct 39.1 (36.0-46.0) % MCV 82.5 (80.0-98.0) fL MCH 27.4 (27.0-32.0) pg MCHC 33.2 (31.0-37.0) g/dL RDW Std Deviation 48.5 (28.0-62.0) fl RDW Coeff of Pepe 16 H (11.0-15.0) % Plt Count 389 (150-400) K/uL MPV 9.90 (7.40-12.00) fL Neut % (Auto) 49.8 (48.0-80.0) % Lymph % (Auto) 42.0 H (16.0-40.0) % [place] % (Auto) 7.1 (0.0-15.0) % Eos % (Auto) 0.9 (0.0-7.0) % Baso % (Auto) 0.2 (0.0-1.5) % Neut # (Auto) 4.3 (1.4-5.7) K/uL Lymph # (Auto) 3.7 H (0.6-2.4) K/uL [place] # (Auto) 0.6 (0.0-0.8) K/uL Eos # (Auto) 0.1 (0.0-0.7) K/uL Baso # (Auto) 0.0 (0.0-0.1) K/uL Nucleated RBC % 0.0 /100WBC Nucleated RBCs # 0 K/uL Sodium 135 L (136-145) mmol/L Potassium 3.4 L (3.5-5.1) mmol/L Chloride 103 (98-107) mmol/L Carbon Dioxide 19.1 L (21.0-32.0) mmol/L BUN 7 (7.0-18.0) mg/dL Creatinine 0.8 (0.6-1.0) mg/dL Est Cr Clr Drug Dosing 72.65 mL/min Estimated GFR (MDRD) > 60.0 ml/min Glucose 91 (74-106) mg/dL Calcium 9.3 (8.5-10.1) mg/dL Total Bilirubin 0.2 (0.2-1.0) mg/dL AST 19 (15-37) IU/L ALT 24 (14-63) IU/L Alkaline Phosphatase 97 (46-116) U/L Troponin I < 0.050 (0.000-0.056) ng/mL Total Protein 7.8 (6.4-8.2) g/dL Albumin 4.2 (3.4-5.0) g/dL Globulin 3.6 H (2.0-3.5) g/dL Albumin/Globulin Ratio 1.2 L (1.3-2.8) Amylase 30 (25-115) U/L Lipase 98 (73-393) U/L Urine Color YELLOW Urine Appearance CLEAR Urine pH 6.5 (5.0-8.0) Ur Specific [place] <= 1.005 (1.001-1.035) Urine Protein NEGATIVE (NEGATIVE) mg/dL Urine Glucose (UA) NEGATIVE (NEGATIVE) mg/dL Urine Ketones NEGATIVE (NEGATIVE) mg/dL Urine Occult Blood NEGATIVE (NEGATIVE) Urine Nitrite NEGATIVE (NEGATIVE) Urine Bilirubin NEGATIVE (NEGATIVE) Urine Urobilinogen 0.2 (<2.0) EU/dL Ur Leukocyte Esterase TRACE (NEGATIVE) Urine RBC 0-1 (0-2/HPF) Urine WBC 0-1 (0-5/HPF) Ur Epithelial Cells OCCASIONAL (NONE-FEW) Urine Bacteria RARE (NEGATIVE) Result Diagrams: 01/27/18 16:15 01/27/18 16:15 *Q Meaningful Use (ADM) - VTE *Q VTE Criteria *Q: - Stroke *Q Stroke Criteria *Q: - AMI *Q AMI Criteria *Q: - Problem List (1) Cholelithiasis SNOMED Code(s): 978800601 ICD Code: K80.20 - CALCULUS OF GALLBLADDER W/O CHOLECYSTITIS W/O OBSTRUCTION Status: Acute Current Visit: Yes (2) Epilepsy SNOMED Code(s): 86025820 ICD Code: G40.909 - EPILEPSY, UNSP, NOT INTRACTABLE, WITHOUT STATUS EPILEPTICUS Status: Acute Current Visit: Yes Problem List Initiated/Reviewed/Updated: Yes Orders Last 24hrs: Active Orders 24 hr Category Date Time Status Admission Status [Patient Status] [ADT] Stat ADT 01/27/18 19:07 Active Abdomen Ltd [US] Stat Exams 01/27/18 16:23 Taken Assessment/Plan Comment:: 01/27/2018 see orders admit Dominic Abarca MD
[2018-01-27] MEDS ORDERED: HYDROmorphone 2 MG/ML SDV IVPUSH PRN (19:53)
[2018-01-27] MEDS ORDERED: Temazepam 15 MG Cap PO PRN (19:53)
[2018-01-27] MEDS ORDERED: LORazepam 2 MG/ML SDV IVPUSH PRN (19:53)
--- NOTE | 2018-01-27 20:05 | PCM.SN ---
- Free Text/Narrative Note: I spoke with Dr Akshat Dooley MD who is addiction nurse for general surgery. I asked him to see this patient tomorrow. He kindly agreed.
[2018-01-27] MEDS: Lactated Ringers 1,000 ML IV SCH (20:19)
[2018-01-27] MEDS ORDERED: fentaNYL 100 MCG/2 ML SDV IVPUSH PRN (20:50)
[2018-01-27] MEDS: carBAMazepine 200 MG Tab PO SCH (21:14)
[2018-01-27] MEDS ORDERED: Naloxone 0.4 MG/ML Syringe IVPUSH ONE ×2 (21:16→23:22)
--- NOTE | 2018-01-27 21:31 | PCM.SN ---
- Free Text/Narrative Note: Called by nursing to ICU - 1 for pt who is unresponsive and no airway reflexes. On my arrival, patient has no response to verbally or painful stimuli. Pt has no gag reflex with deep oral suctioning and respiratory rate of 4-6. Narcan 0.1mg IV was given by me with 50mL LR flush. Within 1-2 minutes the patient would open her eyes to loud verbal stimuli or light tactile stimulation with a respiratory rate of 8-10. Orders given by Dr Abarca for repeat dosing. Narcan 0.1-0.2mg IV for respiratory rate < 8 and patient unresponsive to stimulus.
[2018-01-27] MEDS: Pantoprazole 40 MG Vial IVPUSH SCH (21:48)
[2018-01-27] MEDS ORDERED: ClonazePAM 1 MG Tab PO SCH (22:00)
[2018-01-27] MEDS ORDERED: Naloxone 0.4 MG/ML Syringe IVPUSH PRN (22:31)
[2018-01-27] MEDS: Gabapentin 100 MG Cap PO SCH (22:48)
[2018-01-28] MEDS: Acetaminophen 325 MG Tab PO SCH ×4 (00:10→16:57)
[2018-01-28] MEDS: Gabapentin 100 MG Cap PO SCH (00:18)
[2018-01-28] MEDS: carBAMazepine 200 MG Tab PO SCH (00:18)
[2018-01-28] MEDS: Ketorolac 30 MG/ML SDV IVPUSH PRN ×2 (00:22→06:31)
[2018-01-28] MEDS ORDERED: carBAMazepine 200 MG Tab PO ONE (00:26)
[2018-01-28] MEDS ORDERED: Gabapentin 100 MG Cap PO ONE (00:27)
[2018-01-28] MEDS: Morphine 2 MG/ML Syringe IVPUSH PRN ×3 (01:15→14:06)
[2018-01-28] MEDS: Lactated Ringers 1,000 ML IV SCH ×3 (02:25→15:34)
[2018-01-28] MEDS: Gabapentin 800 MG Tab PO SCH ×4 (05:13→21:03)
[2018-01-28 06:02] LABS: CHLORIDE,CL 107 mmol/L (98-107); SODIUM,NA 140 mmol/L (136-145)
[2018-01-28] MEDS: ClonazePAM 1 MG Tab PO SCH ×4 (06:09→21:03)
[2018-01-28] MEDS: Promethazine 25 MG/ML SDV IM PRN ×2 (06:38→14:06)
--- NOTE | 2018-01-28 08:29 | PCM.CONS ---
<Didier Roemo - Last Filed: 01/28/18 08:24> H&P History of Present Illness - General Date of Service: 01/28/18 Admit Problem/Dx: Admission Diagnosis/Problem Admission Diagnosis/Problem Cholelithiasis Source of Information: Patient, RN Notes Reviewed History Limitations: Reports: No Limitations - History of Present Illness Initial Comments - Free Text/Narative: 37 y/o female admitted overnight for biliary colic. She states she has been fatigued, weak, nauseous, and occasionally vomiting for the past week. She has also noted occasional diarrhea. She developed RUQ/epigastric abdominal pain approximately 30 hours ago, which was severe enough for her to seek evaluation in the ED. She has been eating a generally bland diet for the past week. She denies any history of prior episodes of RUQ/epigastric postprandial pain. The pain has been fairly persistent since onset. She received narcan overnight for respiratory depression, but has been doing well since. Pain does not radiate to the back. She was admitted by the medicine service, and surgery was asked to see her in consultation. - Related Data Allergies/Adverse Reactions: Allergies Allergy/AdvReac Type Severity Reaction Status Date / Time meperidine [From Demerol] Allergy Hives Verified 01/27/18 16:10 methylprednisolone Allergy Nausea and Verified 01/27/18 16:10 [From Medrol] Vomiting nalbuphine [From Nubain] Allergy Nausea and Verified 01/27/18 16:10 Vomiting ondansetron Allergy Hives Verified 01/27/18 16:10 [From Zofran (as hydrochloride)] sulfamethoxazole Allergy Itching Verified 01/27/18 16:10 [From Bactrim] sumatriptan [From Imitrex] Allergy Headache Verified 01/27/18 16:10 trimethoprim [From Bactrim] Allergy Itching Verified 01/27/18 16:10 Home Medications: Home Meds Pantoprazole Sodium [Protonix] 40 mg PO DAILY 02/25/17 [History] Zonisamide [Zonegran] 100 mg PO DAILY 02/25/17 [History] carBAMazepine [Tegretol] 200 mg PO BID 02/25/17 [History] clonazePAM [Clonazepam] 2 mg PO TID 02/25/17 [History] Gabapentin [Neurontin] 1 tab PO TID 01/27/18 [History] Promethazine [Phenergan] 2 tab PO Q8H PRN 01/27/18 [History] Sertraline HCl [Zoloft] 1 tab PO BEDTIME 01/27/18 [History] Zonisamide [Zonegran] 3 tab PO BEDTIME 01/27/18 [History] Past Medical History HEENT History: Reports: None Cardiovascular History: Reports: None Respiratory History: Reports: None Gastrointestinal History: Reports: None Genitourinary History: Reports: None FINANCE CONSULTANT History: Reports: 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 History: Reports: None Neurological History: Reports: Other (See Below) (Epilepsy) Other Neuro History: Epilepsy Psychiatric History: Reports: Anxiety Endocrine/Metabolic History: Reports: None Hematologic History: Reports: None Immunologic History: Reports: None Oncologic (Cancer) History: Reports: None Dermatologic History: Reports: None - Infectious Disease History Infectious Disease History: Reports: Chicken Pox, Measles, Mumps - Past Surgical History Head Surgeries/Procedures: Reports: None Female Surgical History: Reports: Tubal Ligation Social & Family History - Family History Family Medical History: Noncontributory - Tobacco Use Smoking Status *Q: Former Smoker Used Tobacco, but Quit: Yes Month/Year Tobacco Last Used: 2014 Second Hand Smoke Exposure: No - Caffeine Use Caffeine Use: Reports: None - Recreational Drug Use Recreational Drug Use: No H&P Review of Systems - Review of Systems: Review Of Systems: See Below General: Reports: Weakness, Fatigue, Decreased Appetite HEENT: Reports: Headaches Pulmonary: Reports: No Symptoms Cardiovascular: Reports: No Symptoms Gastrointestinal: Reports: Abdominal Pain, Anorexia, Diarrhea, Decreased Appetite Genitourinary: Reports: No Symptoms 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: Reports: No Symptoms Skin: Reports: No Symptoms Psychiatric: Reports: No Symptoms Neurological: Reports: Headache Hematologic/Lymphatic: Reports: No Symptoms Immunologic: Reports: No Symptoms Exam - Exam Exam: See Below - Vital Signs Vital Signs: Last Vital Signs Temp 96.6 C H 01/28/18 05:00 Pulse 86 01/27/18 20:45 Resp 11 L 01/28/18 06:41 BP 108/49 L 01/28/18 06:41 Pulse Ox 100 01/28/18 06:41 Weight: 157 lb 13.616 oz - Exam General: Alert, Oriented, Cooperative HEENT: EOMI, Mucosa Moist & [place], Glasses Neck: Supple Lungs: Clear to Auscultation, Normal Respiratory Effort Cardiovascular: Regular Rate, Regular Rhythm GI/Abdominal Exam: Soft, No Distention, Tender (very mildly tender to palpation in RUQ/epigastrium. No prior surgical scars ) Extremities: Normal Inspection, No Pedal Edema Skin: Warm, Dry Neurological: Cranial Nerves Intact, Normal Speech, Normal Tone Neuro Extensive - Mental Status: Alert, Oriented x3, Normal Mood/Affect, Normal Cognition, Memory Intact Psychiatric: Alert, Normal Affect, Normal Mood - Patient Data Lab Results Last 24 hrs: Laboratory Results - last 24 hr 01/28/18 01/28/18 Range/Units 05:19 05:19 WBC 6.97 (4.0-11.0) K/uL RBC 4.09 L (4.30-5.90) M/uL Hgb 11.2 L (12.0-16.0) g/dL Hct 34.2 L (36.0-46.0) % MCV 83.6 (80.0-98.0) fL MCH 27.4 (27.0-32.0) pg MCHC 32.7 (31.0-37.0) g/dL RDW Std Deviation 49.5 (28.0-62.0) fl RDW Coeff of Pepe 16 H (11.0-15.0) % Plt Count 330 (150-400) K/uL MPV 9.70 (7.40-12.00) fL Neut % (Auto) 46.9 L (48.0-80.0) % Lymph % (Auto) 43.3 H (16.0-40.0) % [place] % (Auto) 8.6 (0.0-15.0) % Eos % (Auto) 1.1 (0.0-7.0) % Baso % (Auto) 0.1 (0.0-1.5) % Neut # (Auto) 3.3 (1.4-5.7) K/uL Lymph # (Auto) 3.0 H (0.6-2.4) K/uL [place] # (Auto) 0.6 (0.0-0.8) K/uL Eos # (Auto) 0.1 (0.0-0.7) K/uL Baso # (Auto) 0.0 (0.0-0.1) K/uL Nucleated RBC % 0.0 /100WBC Nucleated RBCs # 0 K/uL Sodium 140 (136-145) mmol/L Potassium 3.3 L (3.5-5.1) mmol/L Chloride 107 (98-107) mmol/L Carbon Dioxide 25.6 (21.0-32.0) mmol/L BUN 6 L (7.0-18.0) mg/dL Creatinine 0.8 (0.6-1.0) mg/dL Est Cr Clr Drug Dosing 72.73 mL/min Estimated GFR (MDRD) > 60.0 ml/min Glucose 90 (74-106) mg/dL Calcium 8.3 L (8.5-10.1) mg/dL Magnesium 1.5 (1.5-2.0) mg/dL Total Bilirubin 0.3 (0.2-1.0) mg/dL AST 16 (15-37) IU/L ALT 21 (14-63) IU/L Alkaline Phosphatase 77 (46-116) U/L Total Protein 6.3 L (6.4-8.2) g/dL Albumin 3.3 L (3.4-5.0) g/dL Globulin 3.0 (2.0-3.5) g/dL Albumin/Globulin Ratio 1.1 L (1.3-2.8) Result Diagrams: 01/28/18 05:19 01/28/18 05:19 Consult PN Assessment/Plan Procedures: Procedures EMERGENCY DEPT VISIT (01/12/18) HYDRATE IV INFUSION ADD-ON (01/12/18) THER/PROPH/DIAG INJ IV PUSH (01/12/18) THER/PROPH/DIAG INJ SC/IM (01/12/18) TX/PRO/DX INJ NEW DRUG ADDON (01/12/18) X-RAY EXAM L-S SPINE 2/3 VWS (02/25/17) X-RAY EXAM OF ANKLE (12/18/17) X-RAY EXAM OF FOOT (12/18/17) X-RAY EXAM SACRUM TAILBONE (02/25/17) (1) Symptomatic cholelithiasis SNOMED Code(s): 653235622 Code(s): K80.20 - CALCULUS OF GALLBLADDER W/O CHOLECYSTITIS W/O OBSTRUCTION Current Visit: Yes Comment: Ultrasound without significant findings, as well as no leukocytosis and normal LFTs. Patient likely has symptomatic cholelithiasis, as there is no objective evidence to support a diagnosis of acute cholecystitis. Problem List Initiated/Reviewed/Updated: Yes Plan: Advance diet as tolerated. PRN analgesics. Patient was advised to eat a low-fat diet. We will see her in clinic with first-available appointment after discharge , likely sometime next week, and schedule her for elective cholecystectomy at that time. <Akshat Dooley - Last Filed: 01/28/18 09:21> H&P History of Present Illness RLQ Pain Score (Numeric/FACES): 10 Exam - Vital Signs Vital Signs: Last Vital Signs Temp 97.1 F 01/28/18 08:00 Pulse 86 01/27/18 20:45 Resp 15 01/28/18 09:00 BP 108/57 L 01/28/18 09:00 Pulse Ox 99 01/28/18 09:00 - Patient Data Lab Results Last 24 hrs: Laboratory Results - last 24 hr 01/28/18 01/28/18 Range/Units 05:19 05:19 WBC 6.97 (4.0-11.0) K/uL RBC 4.09 L (4.30-5.90) M/uL Hgb 11.2 L (12.0-16.0) g/dL Hct 34.2 L (36.0-46.0) % MCV 83.6 (80.0-98.0) fL MCH 27.4 (27.0-32.0) pg MCHC 32.7 (31.0-37.0) g/dL RDW Std Deviation 49.5 (28.0-62.0) fl RDW Coeff of Pepe 16 H (11.0-15.0) % Plt Count 330 (150-400) K/uL MPV 9.70 (7.40-12.00) fL Neut % (Auto) 46.9 L (48.0-80.0) % Lymph % (Auto) 43.3 H (16.0-40.0) % [place] % (Auto) 8.6 (0.0-15.0) % Eos % (Auto) 1.1 (0.0-7.0) % Baso % (Auto) 0.1 (0.0-1.5) % Neut # (Auto) 3.3 (1.4-5.7) K/uL Lymph # (Auto) 3.0 H (0.6-2.4) K/uL [place] # (Auto) 0.6 (0.0-0.8) K/uL Eos # (Auto) 0.1 (0.0-0.7) K/uL Baso # (Auto) 0.0 (0.0-0.1) K/uL Nucleated RBC % 0.0 /100WBC Nucleated RBCs # 0 K/uL Sodium 140 (136-145) mmol/L Potassium 3.3 L (3.5-5.1) mmol/L Chloride 107 (98-107) mmol/L Carbon Dioxide 25.6 (21.0-32.0) mmol/L BUN 6 L (7.0-18.0) mg/dL Creatinine 0.8 (0.6-1.0) mg/dL Est Cr Clr Drug Dosing 72.73 mL/min Estimated GFR (MDRD) > 60.0 ml/min Glucose 90 (74-106) mg/dL Calcium 8.3 L (8.5-10.1) mg/dL Magnesium 1.5 (1.5-2.0) mg/dL Total Bilirubin 0.3 (0.2-1.0) mg/dL AST 16 (15-37) IU/L ALT 21 (14-63) IU/L Alkaline Phosphatase 77 (46-116) U/L Total Protein 6.3 L (6.4-8.2) g/dL Albumin 3.3 L (3.4-5.0) g/dL Globulin 3.0 (2.0-3.5) g/dL Albumin/Globulin Ratio 1.1 L (1.3-2.8) Result Diagrams: 01/28/18 05:19 01/28/18 05:19 Consult PN Assessment/Plan Procedures: Procedures EMERGENCY DEPT VISIT (01/12/18) HYDRATE IV INFUSION ADD-ON (01/12/18) THER/PROPH/DIAG INJ IV PUSH (01/12/18) THER/PROPH/DIAG INJ SC/IM (01/12/18) TX/PRO/DX INJ NEW DRUG ADDON (01/12/18) X-RAY EXAM L-S SPINE 2/3 VWS (02/25/17) X-RAY EXAM OF ANKLE (12/18/17) X-RAY EXAM OF FOOT (12/18/17) X-RAY EXAM SACRUM TAILBONE (02/25/17) Plan: Patient seen and examined with Dr. Romeo. Case was discussed and laboratory and radiologic findings personally reviewed. I agree with his assessment and plan.
[2018-01-28] MEDS ORDERED: Zonisamide 50 MG Capsule PO SCH ×3 (09:00→21:00)
[2018-01-28] MEDS ORDERED: carBAMazepine 100 MG Cap.ER PO SCH (09:00)
[2018-01-28] MEDS ORDERED: HYDROmorphone 1 MG/ML Syringe IM ONE (10:01)
--- NOTE | 2018-01-28 10:38 | US ---
EXAM DATE: 01/27/18 PATIENT'S AGE: 37 Patient: February Facility: [place], [place] Site . Site : [id number] Study: US Abdomen [id number]/14/2018 5:37:34 PM Ordering Physician: Richar Dumont Final Report: INDICATION: RUQ pain TECHNIQUE: Ultrasound abdomen limited. Sonographic images of the right upper quadrant were obtained using montoya-scale and color Doppler images. COMPARISON: None FINDINGS: Liver: Normal in size with increased echotexture. No masses. No intrahepatic biliary dilatation. Gallbladder: Cholelithiasis. Normal wall thickness. No pericholecystic fluid. Common bile duct: 4 mm. Pancreas: The image portion is unremarkable. Right kidney: 9.2 x 4.3 x 4 5 cm. Normal echotexture and cortex. No masses, stones, or hydronephrosis. Vasculature: Proximal abdominal aorta and IVC are normal. IMPRESSION: 1. Cholelithiasis. 2. Diffuse fatty infiltration of the liver Dictated by Oscar Wells MD @ 01/27/2018 6:30:18 PM Dictated by: Oscar Wells MD @ 01/27/2018 18:30:24 (Electronic Signature) Report Signed by Proxy. OLAMIDE
[2018-01-28] MEDS ORDERED: HYDROmorphone 1 MG/ML Syringe IVPUSH PRN (11:02)
--- NOTE | 2018-01-28 13:00 | PCM.PN ---
- General Info Date of Service: 01/28/18 - Review of Systems General: Denies: Fever Systems Review Comment:: she is resting peacefully and sleeping but is easily arousable. She is tolerating po clear liquids. - Patient Data Vitals - Most Recent: Last Vital Signs Temp 96.8 F 01/28/18 12:00 Pulse 86 01/27/18 20:45 Resp 11 L 01/28/18 12:00 BP 99/63 01/28/18 12:00 Pulse Ox 96 01/28/18 12:09 Weight - Most Recent: 71.6 kg I&O - Last 24 Hours: Intake & Output 01/27/18 01/28/18 01/28/18 22:59 06:59 14:59 Intake Total 2804 720 Output Total 1000 800 Balance 1804 -80 Lab Results Last 24 Hours: Laboratory Results - last 24 hr 01/28/18 01/28/18 Range/Units 05:19 05:19 WBC 6.97 (4.0-11.0) K/uL RBC 4.09 L (4.30-5.90) M/uL Hgb 11.2 L (12.0-16.0) g/dL Hct 34.2 L (36.0-46.0) % MCV 83.6 (80.0-98.0) fL MCH 27.4 (27.0-32.0) pg MCHC 32.7 (31.0-37.0) g/dL RDW Std Deviation 49.5 (28.0-62.0) fl RDW Coeff of Pepe 16 H (11.0-15.0) % Plt Count 330 (150-400) K/uL MPV 9.70 (7.40-12.00) fL Neut % (Auto) 46.9 L (48.0-80.0) % Lymph % (Auto) 43.3 H (16.0-40.0) % [place] % (Auto) 8.6 (0.0-15.0) % Eos % (Auto) 1.1 (0.0-7.0) % Baso % (Auto) 0.1 (0.0-1.5) % Neut # (Auto) 3.3 (1.4-5.7) K/uL Lymph # (Auto) 3.0 H (0.6-2.4) K/uL [place] # (Auto) 0.6 (0.0-0.8) K/uL Eos # (Auto) 0.1 (0.0-0.7) K/uL Baso # (Auto) 0.0 (0.0-0.1) K/uL Nucleated RBC % 0.0 /100WBC Nucleated RBCs # 0 K/uL Sodium 140 (136-145) mmol/L Potassium 3.3 L (3.5-5.1) mmol/L Chloride 107 (98-107) mmol/L Carbon Dioxide 25.6 (21.0-32.0) mmol/L BUN 6 L (7.0-18.0) mg/dL Creatinine 0.8 (0.6-1.0) mg/dL Est Cr Clr Drug Dosing 72.73 mL/min Estimated GFR (MDRD) > 60.0 ml/min Glucose 90 (74-106) mg/dL Calcium 8.3 L (8.5-10.1) mg/dL Magnesium 1.5 (1.5-2.0) mg/dL Total Bilirubin 0.3 (0.2-1.0) mg/dL AST 16 (15-37) IU/L ALT 21 (14-63) IU/L Alkaline Phosphatase 77 (46-116) U/L Total Protein 6.3 L (6.4-8.2) g/dL Albumin 3.3 L (3.4-5.0) g/dL Globulin 3.0 (2.0-3.5) g/dL Albumin/Globulin Ratio 1.1 L (1.3-2.8) Med Orders - Current: Current Medications Acetaminophen (Tylenol) 650 mg PO Q6H [facility] Stop: 01/28/18 23:45 Last Admin: 01/28/18 11:43 Dose: 650 mg Carbamazepine (Tegretol Xr) 200 mg PO BID [facility] Last Admin: 01/28/18 08:10 Dose: 200 mg Clonazepam (Klonopin) 2 mg PO TID [facility] Last Admin: 01/28/18 06:15 Dose: 2 mg Gabapentin (Neurontin) 800 mg PO TID [facility] Last Admin: 01/28/18 06:09 Dose: 800 mg Heparin Sodium (Porcine) (Heparin Sodium) 5,000 units SUBCUT Q8H [facility] Hydromorphone HCl (Dilaudid) 1 mg IVPUSH Q3H PRN PRN Reason: Pain Lactated Ringer's (Ringers, Lactated) 1,000 mls @ 150 mls/hr IV ASDIRECTED [facility] Last Admin: 01/28/18 08:49 Dose: 150 mls/hr Ketorolac Tromethamine (Toradol) 30 mg IVPUSH Q6H PRN PRN Reason: Pain (severe 7-10) Stop: 02/01/18 23:58 Last Admin: 01/28/18 06:31 Dose: 30 mg Morphine Sulfate (Morphine) 1 mg IVPUSH Q4H PRN PRN Reason: Pain (severe 7-10) Last Admin: 01/28/18 08:00 Dose: 1 mg Naloxone HCl (Narcan) 0.1 mg IVPUSH Q2HR PRN PRN Reason: see comment Last Admin: 01/27/18 22:47 Dose: 0.1 mg Pantoprazole Sodium (Protonix Iv) 40 mg IVPUSH Q24H [facility] Last Admin: 01/27/18 21:48 Dose: 40 mg Zonisamide 300 Mg 1 each PO BEDTIME [facility] Zonisamide 100 Mg 1 each PO DAILY [facility] Last Admin: 01/28/18 08:11 Dose: 1 each Zonisamide [Zonegran (] 100 Mg) 3 each PO BEDTIME [facility] Promethazine HCl (Phenergan) 25 mg IM Q6H PRN PRN Reason: Nausea Last Admin: 01/28/18 06:38 Dose: 25 mg Discontinued Medications Carbamazepine (Tegretol Tab) 200 mg PO BID [facility] Last Admin: 01/28/18 00:18 Dose: 200 mg Carbamazepine (Tegretol Tab) 200 mg PO ONETIME ONE Stop: 01/28/18 00:27 Last Admin: 01/28/18 00:54 Dose: Not Given Clonazepam (Klonopin) 1 mg PO TID [facility] Stop: 01/28/18 00:15 Last Admin: 01/27/18 21:48 Dose: Not Given Fentanyl (Sublimaze) 50 mcg IVPUSH Q1H PRN PRN Reason: Pain Gabapentin (Neurontin) 100 mg PO TID [facility] Last Admin: 01/28/18 00:18 Dose: 100 mg Gabapentin (Neurontin) 100 mg PO ONETIME ONE Stop: 01/28/18 00:28 Last Admin: 01/28/18 00:54 Dose: Not Given Gabapentin (Neurontin) 800 mg PO TID [facility] Hydromorphone HCl (Dilaudid) 0.5 mg IVPUSH ONETIME PRN PRN Reason: Pain Hydromorphone HCl (Dilaudid) 0.5 mg IV ONETIME ONE Stop: 01/27/18 18:53 Last Admin: 01/27/18 18:57 Dose: 0.5 mg Hydromorphone HCl (Dilaudid) 2 mg IVPUSH ONETIME ONE Stop: 01/27/18 19:15 Last Admin: 01/27/18 19:19 Dose: 2 mg Hydromorphone HCl (Dilaudid) 2 mg IVPUSH Q3H PRN PRN Reason: Pain (severe 7-10) Hydromorphone HCl (Dilaudid) 1 mg IM ONETIME ONE Stop: 01/28/18 10:02 Last Admin: 01/28/18 10:20 Dose: 1 mg Sodium Chloride (Normal Saline) 1,000 mls @ 999 mls/hr IV STAT ONE Stop: 01/27/18 17:04 Last Admin: 01/27/18 20:25 Dose: Not Given Lactated Ringer's (Ringers, Lactated) 1,000 mls @ 999 mls/hr IV ONETIME ONE Stop: 01/27/18 17:21 Last Admin: 01/27/18 16:33 Dose: 999 mls/hr Ketorolac Tromethamine (Toradol) 30 mg IVPUSH ONETIME ONE Stop: 01/27/18 16:05 Last Admin: 01/27/18 16:36 Dose: 30 mg Lorazepam (Ativan) 1 mg IVPUSH Q6H PRN PRN Reason: Anxiety Metoclopramide HCl (Reglan) 10 mg IV ONETIME ONE Stop: 01/27/18 16:32 Last Admin: 01/27/18 16:46 Dose: Not Given Morphine Sulfate (Morphine) 4 mg IVPUSH ONETIME ONE Stop: 01/27/18 17:41 Last Admin: 01/27/18 17:45 Dose: 4 mg Naloxone HCl (Narcan) 0.4 mg IVPUSH ONETIME ONE Stop: 01/27/18 21:17 Last Admin: 01/27/18 21:23 Dose: 0.1 mg Naloxone HCl (Narcan) 0.1 mg IVPUSH ONETIME ONE Stop: 01/27/18 23:23 Last Admin: 01/27/18 23:27 Dose: 0.1 mg Promethazine HCl (Phenergan) 25 mg IM ONETIME ONE Stop: 01/27/18 16:50 Last Admin: 01/27/18 16:56 Dose: 25 mg Temazepam (Restoril) 15 mg PO BEDTIME PRN PRN Reason: Sleep Zonisamide (Zonisamide) 100 mg PO DAILY [facility] Zonisamide (Zonisamide) 300 mg PO BEDTIME [facility] Zonisamide (Zonisamide) 100 mg PO DAILY [facility] - Exam Lungs: Clear to Auscultation, Normal Respiratory Effort Cardiovascular: Regular Rate, Regular Rhythm GI/Abdominal Exam: Soft. No: Non-Tender (moderate RUQ tenderness ) - Problem List & Annotations (1) Cholelithiasis SNOMED Code(s): 317061202 Code(s): K80.20 - CALCULUS OF GALLBLADDER W/O CHOLECYSTITIS W/O OBSTRUCTION Status: Acute Current Visit: Yes (2) Epilepsy SNOMED Code(s): 76500426 Code(s): G40.909 - EPILEPSY, UNSP, NOT INTRACTABLE, WITHOUT STATUS EPILEPTICUS Status: Acute Current Visit: Yes - Problem List Review Problem List Initiated/Reviewed/Updated: Yes - My Orders Last 24 Hours: My Active Orders 01/27/18 20:48 Transfer Patient (Change bed) [ADT] Routine 01/27/18 20:50 Consult to Respiratory Therapy [Respiratory Care Assess and Treatment] [CONS] Routine 01/28/18 09:00 Consult to Physician [CONS] Urgent 01/28/18 11:02 HYDROmorphone [Dilaudid] 1 mg IVPUSH Q3H PRN 01/28/18 11:03 Communication Order [RC] ROUTINE 01/28/18 12:08 Transfer Patient (Change bed) [ADT] Routine 01/28/18 12:09 Pulse Oximetry [RC] CONTINUOUS 01/28/18 12:10 Cardiac Monitoring [RC] . DIRECTED 01/28/18 21:00 Patient's Own Medication [Ptom] 3 each PO BEDTIME 01/28/18 Lunch Clear Liquid Diet [DIET] - Plan Plan:: 01/27/2018 see orders admit Dominic Abarca MD 01/28/2018 to medical floor I read Dr Akshat Dooley's note restart po antiepileptics close monitoring Dominic Abarca MD
[2018-01-28] MEDS ORDERED: Gabapentin 800 MG Tab PO SCH (14:00)
[2018-01-28] MEDS: carBAMazepine 100 MG Cap.ER PO SCH (14:46)
[2018-01-28] MEDS ORDERED: fentaNYL 100 MCG/2 ML SDV IVPUSH PRN (15:52)
--- NOTE | 2018-01-28 20:23 | PCM.SN ---
- Free Text/Narrative Note: I came in the room as she is finishing eating a anne cheese burger. She gagged as if to vomit but no definite emesis seen. Complains of inadequate pain control with fentanyl. intermittently grasps at RUQ. Impression: cholelithiasis. Plan: dilaudid 1 mg q 4 hr prn advised clear liquids If not able to discharge tomorrow may need to reconsult surgery. Dominic Abarca MD
[2018-01-28] MEDS: HYDROmorphone 1 MG/ML Syringe IVPUSH PRN (20:50)
[2018-01-28] MEDS ORDERED: ZONISAMIDE 100 MG PO SCH (21:00)
[2018-01-28] MEDS ORDERED: Zonisamide 300 MG PO SCH (21:00)
[2018-01-28] MEDS: Heparin Sodium 5,000 Units/ML Vial SUBCUT SCH (21:04)
[2018-01-28] MEDS: Pantoprazole 40 MG Vial IVPUSH SCH (21:04)
[2018-01-29] MEDS: Acetaminophen 325 MG Tab PO SCH (00:29)
[2018-01-29] MEDS: HYDROmorphone 1 MG/ML Syringe IVPUSH PRN ×3 (00:57→12:17)
[2018-01-29] MEDS: Heparin Sodium 5,000 Units/ML Vial SUBCUT SCH ×2 (05:38→12:23)
[2018-01-29] MEDS: ClonazePAM 1 MG Tab PO SCH ×2 (05:42→15:19)
[2018-01-29] MEDS: Gabapentin 800 MG Tab PO SCH ×2 (05:42→15:20)
[2018-01-29 06:28] LABS: CHLORIDE,CL 106 mmol/L (98-107); SODIUM,NA 139 mmol/L (136-145)
[2018-01-29] MEDS: carBAMazepine 100 MG Cap.ER PO SCH ×2 (07:35→15:19)
[2018-01-29] MEDS: Ketorolac 30 MG/ML SDV IVPUSH PRN ×2 (07:35→13:35)
--- NOTE | 2018-01-29 11:53 | PCM.DCSUM1 ---
Discharge Summary - Discharge Data Discharge Date: 01/29/18 Discharge Disposition: Home, Self-Care 01 Condition: Fair - Discharge Diagnosis/Problem(s) (1) Cholelithiasis SNOMED Code(s): 946765142 ICD Code: K80.20 - CALCULUS OF GALLBLADDER W/O CHOLECYSTITIS W/O OBSTRUCTION Status: Acute Current Visit: Yes (2) Epilepsy SNOMED Code(s): 18788706 ICD Code: G40.909 - EPILEPSY, UNSP, NOT INTRACTABLE, WITHOUT STATUS EPILEPTICUS Status: Acute Current Visit: Yes - Patient Summary/Data Consults: Consultations 01/27/18 20:50 Consult to Respiratory Therapy [Respiratory Care Assess and Treatment] [CONS] Routine 01/28/18 09:00 Consult to Physician [CONS] Urgent Hospital Course: She was admitted with the diagnosis of cholelithiasis and biliary colic. Dr Akshat Dooley , general surgery, was consulted. He recommended conservative in hospital treatment with follow up as an outpatient. She was treated with phenergan and opioid analgesics. Shortly after coming to the medical floor she became hypopneic.This was thought secondary to Dilaudid 0.5 mg IV ordered in the ED followed by a dose of 2 mg ordered by myself while she was still in the ED. She required supplemental oxygen and she was transferred to the ICU for closer monitoring. Marc Echavarria CRNA was consulted and gave a dose of narcan 0.1 mg . The patient's breathing and hypoxia improved without resumption of pain. She was given morphine and fentanyl for pain but dilaudid seemed the most helpful. She had no further episodes of respiratory depression. A clear liquid diet was ordered but on the evening before discharge she was observed to be eating a anne cheeseburger. She did not vomit on the day of discharge. Impression: cholelithiasis biliary colic Plan: discharge home follow up with Dr Dooley dilaudid po phenergan po bland low fat diet - Discharge Plan Home Medications: Home Meds Pantoprazole Sodium [Protonix] 40 mg PO DAILY 02/25/17 [History] Zonisamide [Zonegran] 100 mg PO DAILY 02/25/17 [History] carBAMazepine [Tegretol] 200 mg PO BID 02/25/17 [History] clonazePAM [Clonazepam] 2 mg PO TID 02/25/17 [History] Gabapentin [Neurontin] 800 mg PO TID 01/27/18 [History] Promethazine [Phenergan] 50 mg PO Q8H PRN 01/27/18 [History] Sertraline HCl [Zoloft] 100 mg PO BEDTIME 01/27/18 [History] Zonisamide [Zonegran] 300 mg PO BEDTIME 01/27/18 [History] Forms: ED Department Discharge Referrals: Marcos Mcneil [Primary Care Provider] - - Patient Data Vitals - Most Recent: Last Vital Signs Temp 96.2 F 01/29/18 07:42 Pulse 80 01/29/18 07:42 Resp 22 H 01/29/18 07:42 BP 108/65 01/29/18 07:42 Pulse Ox 99 01/29/18 07:42 Weight - Most Recent: 69.49 kg I&O - Last 24 hours: Intake & Output 01/28/18 01/29/18 01/29/18 22:59 06:59 14:59 Intake Total 810 700 Output Total 550 1000 Balance 260 -300 Lab Results - Last 24 hrs: Laboratory Results - last 24 hr 01/29/18 Range/Units 05:37 Sodium 139 (136-145) mmol/L Potassium 3.6 (3.5-5.1) mmol/L Chloride 106 (98-107) mmol/L Carbon Dioxide 25.0 (21.0-32.0) mmol/L BUN 8 (7.0-18.0) mg/dL Creatinine 0.7 (0.6-1.0) mg/dL Est Cr Clr Drug Dosing 83.12 mL/min Estimated GFR (MDRD) > 60.0 ml/min Glucose 93 (74-106) mg/dL Calcium 8.5 (8.5-10.1) mg/dL Magnesium 1.6 (1.5-2.0) mg/dL Total Bilirubin 0.1 L (0.2-1.0) mg/dL AST 16 (15-37) IU/L ALT 21 (14-63) IU/L Alkaline Phosphatase 77 (46-116) U/L Total Protein 6.3 L (6.4-8.2) g/dL Albumin 3.3 L (3.4-5.0) g/dL Globulin 3.0 (2.0-3.5) g/dL Albumin/Globulin Ratio 1.1 L (1.3-2.8) Med Orders - Current: Current Medications Carbamazepine (Tegretol Xr) 200 mg PO BID@0800,1400 [facility] Last Admin: 01/29/18 07:35 Dose: 200 mg Clonazepam (Klonopin) 2 mg PO TID [facility] Last Admin: 01/29/18 05:42 Dose: 2 mg Gabapentin (Neurontin) 800 mg PO TID [facility] Last Admin: 01/29/18 05:42 Dose: 800 mg Heparin Sodium (Porcine) (Heparin Sodium) 5,000 units SUBCUT Q8H [facility] Last Admin: 01/29/18 05:38 Dose: 5,000 units Hydromorphone HCl (Dilaudid) 1 mg IVPUSH Q4H PRN PRN Reason: Pain Last Admin: 01/29/18 05:50 Dose: 1 mg Ketorolac Tromethamine (Toradol) 30 mg IVPUSH Q6H PRN PRN Reason: Pain (severe 7-10) Stop: 02/01/18 23:58 Last Admin: 01/29/18 07:35 Dose: 30 mg Naloxone HCl (Narcan) 0.1 mg IVPUSH Q2HR PRN PRN Reason: see comment Last Admin: 01/27/18 22:47 Dose: 0.1 mg Pantoprazole Sodium (Protonix Iv) 40 mg IVPUSH Q24H [facility] Last Admin: 01/28/18 21:04 Dose: 40 mg Zonisamide 100 Mg 1 each PO DAILY [facility] Last Admin: 01/29/18 11:17 Dose: 1 each Zonisamide [Zonegran (] 100 Mg) 3 each PO BEDTIME [facility] Last Admin: 01/28/18 21:02 Dose: 3 each Promethazine HCl (Phenergan) 25 mg IM Q6H PRN PRN Reason: Nausea Last Admin: 01/28/18 14:06 Dose: 25 mg Discontinued Medications Acetaminophen (Tylenol) 650 mg PO Q6H [facility] Stop: 01/28/18 23:45 Last Admin: 01/29/18 00:29 Dose: 650 mg Carbamazepine (Tegretol Tab) 200 mg PO BID [facility] Last Admin: 01/28/18 00:18 Dose: 200 mg Carbamazepine (Tegretol Tab) 200 mg PO ONETIME ONE Stop: 01/28/18 00:27 Last Admin: 01/28/18 00:54 Dose: Not Given Carbamazepine (Tegretol Xr) 200 mg PO BID [facility] Last Admin: 01/28/18 08:10 Dose: 200 mg Clonazepam (Klonopin) 1 mg PO TID [facility] Stop: 01/28/18 00:15 Last Admin: 01/27/18 21:48 Dose: Not Given Fentanyl (Sublimaze) 50 mcg IVPUSH Q1H PRN PRN Reason: Pain Fentanyl (Sublimaze) 50 mcg IVPUSH Q1H PRN PRN Reason: Pain Last Admin: 01/28/18 16:50 Dose: 50 mcg Gabapentin (Neurontin) 100 mg PO TID [facility] Last Admin: 01/28/18 00:18 Dose: 100 mg Gabapentin (Neurontin) 100 mg PO ONETIME ONE Stop: 01/28/18 00:28 Last Admin: 01/28/18 00:54 Dose: Not Given Gabapentin (Neurontin) 800 mg PO TID [facility] Hydromorphone HCl (Dilaudid) 0.5 mg IVPUSH ONETIME PRN PRN Reason: Pain Hydromorphone HCl (Dilaudid) 0.5 mg IV ONETIME ONE Stop: 01/27/18 18:53 Last Admin: 01/27/18 18:57 Dose: 0.5 mg Hydromorphone HCl (Dilaudid) 2 mg IVPUSH ONETIME ONE Stop: 01/27/18 19:15 Last Admin: 01/27/18 19:19 Dose: 2 mg Hydromorphone HCl (Dilaudid) 2 mg IVPUSH Q3H PRN PRN Reason: Pain (severe 7-10) Hydromorphone HCl (Dilaudid) 1 mg IM ONETIME ONE Stop: 01/28/18 10:02 Last Admin: 01/28/18 10:20 Dose: 1 mg Hydromorphone HCl (Dilaudid) 1 mg IVPUSH Q3H PRN PRN Reason: Pain Sodium Chloride (Normal Saline) 1,000 mls @ 999 mls/hr IV STAT ONE Stop: 01/27/18 17:04 Last Admin: 01/27/18 20:25 Dose: Not Given Lactated Ringer's (Ringers, Lactated) 1,000 mls @ 999 mls/hr IV ONETIME ONE Stop: 01/27/18 17:21 Last Admin: 01/27/18 16:33 Dose: 999 mls/hr Lactated Ringer's (Ringers, Lactated) 1,000 mls @ 150 mls/hr IV ASDIRECTED DEREK Last Admin: 01/28/18 15:34 Dose: 150 mls/hr Ketorolac Tromethamine (Toradol) 30 mg IVPUSH ONETIME ONE Stop: 01/27/18 16:05 Last Admin: 01/27/18 16:36 Dose: 30 mg Lorazepam (Ativan) 1 mg IVPUSH Q6H PRN PRN Reason: Anxiety Metoclopramide HCl (Reglan) 10 mg IV ONETIME ONE Stop: 01/27/18 16:32 Last Admin: 01/27/18 16:46 Dose: Not Given Morphine Sulfate (Morphine) 4 mg IVPUSH ONETIME ONE Stop: 01/27/18 17:41 Last Admin: 01/27/18 17:45 Dose: 4 mg Morphine Sulfate (Morphine) 1 mg IVPUSH Q4H PRN PRN Reason: Pain (severe 7-10) Last Admin: 01/28/18 14:06 Dose: 1 mg Naloxone HCl (Narcan) 0.4 mg IVPUSH ONETIME ONE Stop: 01/27/18 21:17 Last Admin: 01/27/18 21:23 Dose: 0.1 mg Naloxone HCl (Narcan) 0.1 mg IVPUSH ONETIME ONE Stop: 01/27/18 23:23 Last Admin: 01/27/18 23:27 Dose: 0.1 mg Zonisamide 300 Mg 1 each PO BEDTIME [facility] Promethazine HCl (Phenergan) 25 mg IM ONETIME ONE Stop: 01/27/18 16:50 Last Admin: 01/27/18 16:56 Dose: 25 mg Temazepam (Restoril) 15 mg PO BEDTIME PRN PRN Reason: Sleep Zonisamide (Zonisamide) 100 mg PO DAILY [facility] Zonisamide (Zonisamide) 300 mg PO BEDTIME [facility] Zonisamide (Zonisamide) 100 mg PO DAILY [facility] *Q Meaningful Use (DIS) - VTE *Q VTE Criteria *Q: - Stroke *Q Stroke Criteria *Q: - AMI *Q AMI Criteria *Q:
[2018-01-29] MEDS: Promethazine 25 MG/ML SDV IM PRN (13:52)
[2018-01-29 15:48] VITALS: BP 119/58
== END 2018-01-29 18:30 | disposition home or self-care (01) | DRG 446 ==
LOC: MW.ED 15:59 → MW.MS 19:10 → UNDOADMIN 19:59 → MW.MS 19:59 → MW.ICU 20:53 → MW.MS 01-28 13:13 → UNDODISIN 01-29 18:30
PROVIDERS: ADMIT Family Medicine; ATTEND Family Medicine
DX: K80.20 Calculus of gallbladder without cholecystitis without obstruction (principal); K80.50 Calculus of bile duct without cholangitis or cholecystitis without obstruction; R09.02 Hypoxemia; G40.909 Epilepsy, unspecified, not intractable, without status epilepticus; F41.9 Anxiety disorder, unspecified; Z79.899 Other long term (current) drug therapy; Z88.8 Allergy status to other drugs, medicaments and biological substances; Z87.891 Personal history of nicotine dependence
CPT/HCPCS: 76705; 80053; 81001; 82150; 83690; 84484; 84703; 85025; 96365; 96372; 96375; 99285; J1170 ×2; J1885; J2270; J2550; J7120; 36415; 83735; 99284; A9270-GY; C9113; J1644; J3010

== ENCOUNTER 2018-01-31 18:43 | Observation (INO) | payer MEDICARE, MEDICAID ==
[2018-01-31] MEDS ORDERED: Sodium Chloride 0.9% 1,000 ML IV ONE (19:01)
--- NOTE | 2018-01-31 19:05 | EDM.PDOC ---
ED HPI GENERAL MEDICAL PROBLEM - General Chief Complaint: Abdominal Pain Stated Complaint: GALL BLADDER PAIN Time Seen by Provider: 01/31/18 19:03 Source of Information: Reports: Patient - History of Present Illness INITIAL COMMENTS - FREE TEXT/NARRATIVE: HISTORY AND PHYSICAL: History of present illness: [Patient presents with right upper quadrant pain and known history of cholelithiasis presents with 10 out of 10 pain radiating to the back Admitted to the hospital and recently discharged 4 days ago ] No fever chills sweats no chest pain shortness breath headache dizziness palpitation about a urine symptoms Review of systems: As per history of present illness and below otherwise all systems reviewed and negative. Past medical history: As per history of present illness and as reviewed below otherwise noncontributory. Surgical history: As per history of present illness and as reviewed below otherwise noncontributory. Social history: No reported history of drug or alcohol abuse. Family history: As per history of present illness and as reviewed below otherwise noncontributory. Physical exam: HEENT: Atraumatic, normocephalic, pupils reactive, negative for conjunctival pallor or scleral icterus, mucous membranes moist, throat clear, neck supple, nontender, trachea midline. Lungs: Clear to auscultation, breath sounds equal bilaterally, chest nontender. Heart: S1S2, regular, negative for clicks, rubs, or JVD. Abdomen: Soft, nondistended, nontender. Negative for masses or hepatosplenomegaly. Negative for costovertebral tenderness. Pelvis: Stable nontender. Genitourinary: Deferred. Rectal: Deferred. Extremities: Atraumatic, negative for cords or calf pain. Neurovascular unremarkable. Neuro: Awake, alert, oriented. Cranial nerves II through XII unremarkable. Cerebellum unremarkable. Motor and sensory unremarkable throughout. Exam nonfocal. Diagnostics: [CBC CMP UA troponin lipase lactic acid blood cultures Ultrasound on file] Therapeutics: [Normal saline bolus ]Dilaudid 0.5 mg IV Toradol 30 mg IV Patient admitted for observation and pain control consult surgery Impression: Cholelithiasis ] Definitive disposition and diagnosis as appropriate pending reevaluation and review of above. RUQ Pain Score (Numeric/FACES): 10 - Related Data Allergies Allergy/AdvReac Type Severity Reaction Status Date / Time meperidine [From Demerol] Allergy Hives Verified 01/27/18 16:10 methylprednisolone Allergy Nausea and Verified 01/27/18 16:10 [From Medrol] Vomiting nalbuphine [From Nubain] Allergy Nausea and Verified 01/27/18 16:10 Vomiting ondansetron Allergy Hives Verified 01/27/18 16:10 [From Zofran (as hydrochloride)] rizatriptan [From Maxalt] Allergy Rash Verified 01/31/18 18:56 sulfamethoxazole Allergy Itching Verified 01/27/18 16:10 [From Bactrim] sumatriptan [From Imitrex] Allergy Headache Verified 01/27/18 16:10 trimethoprim [From Bactrim] Allergy Itching Verified 01/27/18 16:10 Home Meds: Home Meds Pantoprazole Sodium [Protonix] 40 mg PO DAILY 02/25/17 [History] Zonisamide [Zonegran] 100 mg PO DAILY 02/25/17 [History] carBAMazepine [Tegretol] 200 mg PO BID 02/25/17 [History] clonazePAM [Clonazepam] 2 mg PO TID 02/25/17 [History] Gabapentin [Neurontin] 800 mg PO TID 01/27/18 [History] Sertraline HCl [Zoloft] 100 mg PO BEDTIME 01/27/18 [History] Zonisamide [Zonegran] 300 mg PO BEDTIME 01/27/18 [History] HYDROmorphone [Dilaudid] 1 mg PO Q4H PRN #20 tab 01/29/18 [Rx] Promethazine [Phenergan] 25 mg PO Q4H PRN #20 tab 01/29/18 [Rx] Past Medical History HEENT History: Reports: None Cardiovascular History: Reports: None Respiratory History: Reports: None Gastrointestinal History: Reports: Cholelithiasis Genitourinary History: Reports: None [employer] History: Reports: 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 History: Reports: None Neurological History: Reports: Other (See Below) Other Neuro History: Epilepsy Psychiatric History: Reports: Anxiety Endocrine/Metabolic History: Reports: None Hematologic History: Reports: None Immunologic History: Reports: None Oncologic (Cancer) History: Reports: None Dermatologic History: Reports: None - Infectious Disease History Infectious Disease History: Reports: Chicken Pox, Measles, Mumps - Past Surgical History Head Surgeries/Procedures: Reports: None Female Surgical History: Reports: Tubal Ligation Social & Family History - Family History Family Medical History: Noncontributory - Tobacco Use Smoking Status *Q: Never Smoker Used Tobacco, but Quit: Yes Month/Year Tobacco Last Used: 2014 Second Hand Smoke Exposure: No - Caffeine Use Caffeine Use: Reports: Coffee, Soda, Tea - Recreational Drug Use Recreational Drug Use: No ED ROS GENERAL - Review of Systems Review Of Systems: ROS reveals no pertinent complaints other than HPI. ED EXAM, GENERAL - Physical Exam Exam: See Below Course - Vital Signs Last Recorded V/S: Last Vital Signs Temp 97.5 F 01/31/18 18:52 Pulse 95 01/31/18 18:52 Resp 20 01/31/18 18:52 BP 136/72 01/31/18 18:52 Pulse Ox 95 01/31/18 18:52 - Orders/Labs/Meds Orders: Active Orders 24 hr Category Date Time Status CULTURE BLOOD [BC] Stat Lab 01/31/18 19:20 Received CULTURE BLOOD [BC] Stat Lab 01/31/18 19:30 Results UA W/MICROSCOPIC [URIN] Stat Lab 01/31/18 19:02 Ordered HYDROmorphone [Dilaudid] Med 01/31/18 19:13 Active 0.5 mg IVPUSH ONETIME PRN Lactated Ringers [Ringers, Lactated] 1,000 ml Med 01/31/18 19:15 Active IV .BOLUS Blood Culture x2 Reflex Set [OM.PC] Stat Oth 01/31/18 19:02 Ordered Medication Orders Hydromorphone HCl (Dilaudid) 0.5 mg IVPUSH ONETIME PRN PRN Reason: Abdominal Pain Last Admin: 01/31/18 19:19 Dose: 0.5 mg Lactated Ringer's (Ringers, Lactated) 1,000 mls @ 999 mls/hr IV .BOLUS DEREK Last Admin: 01/31/18 19:21 Dose: 999 mls/hr Labs: Laboratory Tests 01/31/18 01/31/18 01/31/18 Range/Units 19:04 19:04 19:04 WBC 7.31 (4.0-11.0) K/uL RBC 4.39 (4.30-5.90) M/uL Hgb 11.9 L (12.0-16.0) g/dL Hct 37.0 (36.0-46.0) % MCV 84.3 (80.0-98.0) fL MCH 27.1 (27.0-32.0) pg MCHC 32.2 (31.0-37.0) g/dL RDW Std Deviation 49.3 (28.0-62.0) fl RDW Coeff of Pepe 16 H (11.0-15.0) % Plt Count 364 (150-400) K/uL MPV 9.50 (7.40-12.00) fL Neut % (Auto) 49.2 (48.0-80.0) % Lymph % (Auto) 40.9 H (16.0-40.0) % [place] % (Auto) 6.7 (0.0-15.0) % Eos % (Auto) 3.1 (0.0-7.0) % Baso % (Auto) 0.1 (0.0-1.5) % Neut # (Auto) 3.6 (1.4-5.7) K/uL Lymph # (Auto) 3.0 H (0.6-2.4) K/uL [place] # (Auto) 0.5 (0.0-0.8) K/uL Eos # (Auto) 0.2 (0.0-0.7) K/uL Baso # (Auto) 0.0 (0.0-0.1) K/uL Nucleated RBC % 0.0 /100WBC Nucleated RBCs # 0 K/uL Lactate 1.7 (0.20-2.00) mmol/L Sodium 137 (136-145) mmol/L Potassium 3.4 L (3.5-5.1) mmol/L Chloride 106 (98-107) mmol/L Carbon Dioxide 23.6 (21.0-32.0) mmol/L BUN 7 (7.0-18.0) mg/dL Creatinine 0.9 (0.6-1.0) mg/dL Est Cr Clr Drug Dosing 64.58 mL/min Estimated GFR (MDRD) > 60.0 ml/min Glucose 92 (74-106) mg/dL Calcium 8.7 (8.5-10.1) mg/dL Total Bilirubin 0.2 (0.2-1.0) mg/dL AST 14 L (15-37) IU/L ALT 21 (14-63) IU/L Alkaline Phosphatase 96 (46-116) U/L Troponin I < 0.050 (0.000-0.056) ng/mL Total Protein 7.0 (6.4-8.2) g/dL Albumin 3.6 (3.4-5.0) g/dL Globulin 3.4 (2.0-3.5) g/dL Albumin/Globulin Ratio 1.1 L (1.3-2.8) Amylase 23 L (25-115) U/L Lipase 63 L (73-393) U/L Meds: Medications Generic Name Dose Route Start Last Admin Trade Name Freq PRN Reason Stop Dose Admin Hydromorphone HCl 0.5 mg 01/31/18 19:13 01/31/18 19:19 Dilaudid IVPUSH 0.5 mg ONETIME PRN Administration Abdominal Pain Lactated Ringer's 1,000 mls @ 999 mls/hr 01/31/18 19:15 01/31/18 19:21 Ringers, Lactated IV 999 mls/hr .BOLUS DEREK Administration Discontinued Medications Generic Name Dose Route Start Last Admin Trade Name Freq PRN Reason Stop Dose Admin Sodium Chloride 1,000 mls @ 999 mls/hr 01/31/18 19:01 01/31/18 19:22 Normal Saline IV 01/31/18 20:01 Not Given STAT ONE Ketorolac Tromethamine 30 mg 01/31/18 19:41 01/31/18 19:52 Toradol IVPUSH 01/31/18 19:42 30 mg ONETIME ONE Administration Ketorolac Tromethamine Confirm 01/31/18 19:43 01/31/18 19:51 Toradol Administered 01/31/18 19:44 Not Given Dose 30 mg .ROUTE .STK-MED ONE Departure - Departure Time of Disposition: 20:18 Disposition: Refer to Observation Condition: Good Clinical Impression: Abdominal pain - Discharge Information Referrals: Marcos Mcneil [Primary Care Provider] - Forms: ED Department Discharge - My Orders Last 24 Hours: My Active Orders 01/31/18 19:02 UA W/MICROSCOPIC [URIN] Stat Blood Culture x2 Reflex Set [OM.PC] Stat 01/31/18 19:13 HYDROmorphone [Dilaudid] 0.5 mg IVPUSH ONETIME PRN 01/31/18 19:15 Lactated Ringers [Ringers, Lactated] 1,000 ml IV .BOLUS 01/31/18 19:20 CULTURE BLOOD [BC] Stat 01/31/18 19:30 CULTURE BLOOD [BC] Stat - Assessment/Plan Last 24 Hours: My Active Orders 01/31/18 19:02 UA W/MICROSCOPIC [URIN] Stat Blood Culture x2 Reflex Set [OM.PC] Stat 01/31/18 19:13 HYDROmorphone [Dilaudid] 0.5 mg IVPUSH ONETIME PRN 01/31/18 19:15 Lactated Ringers [Ringers, Lactated] 1,000 ml IV .BOLUS 01/31/18 19:20 CULTURE BLOOD [BC] Stat 01/31/18 19:30 CULTURE BLOOD [BC] Stat
[2018-01-31] MEDS ORDERED: HYDROmorphone 2 MG/ML SDV IVPUSH PRN (19:13)
[2018-01-31] MEDS ORDERED: Lactated Ringers 1,000 ML IV SCH (19:15)
[2018-01-31] MEDS ORDERED: Ketorolac 30 MG/ML SDV IVPUSH ONE (19:41)
[2018-01-31] MEDS ORDERED: Ketorolac 30 MG/ML SDV ONE (19:43)
[2018-01-31 19:51] LABS: CHLORIDE,CL 106 mmol/L (98-107); SODIUM,NA 137 mmol/L (136-145)
[2018-01-31] MEDS ORDERED: HYDROmorphone 1 MG/ML Syringe IV ONE (20:47)
--- NOTE | 2018-01-31 21:18 | PCM.HP ---
H&P History of Present Illness - General Date of Service: 01/31/18 Admit Problem/Dx: Admission Diagnosis/Problem Admission Diagnosis/Problem Abdominal pain Source of Information: Patient History Limitations: Reports: No Limitations - History of Present Illness Initial Comments - Free Text/Narative: 37-year-old female presented to emergency department with chief complaint of right upper quadrant pain radiating to the back with past medical history of cholelithiasis, migraine, and depression. Patient presented to Emergency department with chief complaint of right upper quadrant pain 10 out of 10 radiating to the back. She was recently admitted for similar symptoms on 01/27/18 at which time an abdominal ultrasound showed cholelithiasis and diffuse fatty liver. Patient was consulted by general surgery on 01/28/18 and was scheduled to follow-up in clinic for elective outpatient cholecystectomy. Patient states that after being discharged on her pain never improved. She has had progressive right upper quadrant pain radiating to the back with associated nausea and vomiting she denies any current chest pain, palpitations, shortness breath, syncopal episodes, or focal neurologic deficits. Patient does admit to several months of nausea and vomiting that she believes was associated with this cholelithiasis. States pain started approximately 1 week ago 01/27/28. Emergency department: CBC, lactate, and CMP unremarkable. Normal liver function tests as well as non- elevated bilirubin. Blood cultures were obtained. She was given 0.5 mg IV Dilaudid, 30 mg IV Toradol, and 1 L LR bolus. Patient was admitted for biliary colic. RUQ Pain Score (Numeric/FACES): 10 - Related Data Allergies/Adverse Reactions: Allergies Allergy/AdvReac Type Severity Reaction Status Date / Time meperidine [From Demerol] Allergy Hives Verified 01/27/18 16:10 methylprednisolone Allergy Nausea and Verified 01/27/18 16:10 [From Medrol] Vomiting nalbuphine [From Nubain] Allergy Nausea and Verified 01/27/18 16:10 Vomiting ondansetron Allergy Hives Verified 01/27/18 16:10 [From Zofran (as hydrochloride)] rizatriptan [From Maxalt] Allergy Rash Verified 01/31/18 18:56 sulfamethoxazole Allergy Itching Verified 01/27/18 16:10 [From Bactrim] sumatriptan [From Imitrex] Allergy Headache Verified 01/27/18 16:10 trimethoprim [From Bactrim] Allergy Itching Verified 01/27/18 16:10 Home Medications: Home Meds Pantoprazole Sodium [Protonix] 40 mg PO DAILY 02/25/17 [History] Zonisamide [Zonegran] 100 mg PO DAILY 02/25/17 [History] carBAMazepine [Tegretol] 200 mg PO BID 02/25/17 [History] clonazePAM [Clonazepam] 2 mg PO TID 02/25/17 [History] Gabapentin [Neurontin] 800 mg PO TID 01/27/18 [History] Sertraline HCl [Zoloft] 100 mg PO BEDTIME 01/27/18 [History] Zonisamide [Zonegran] 300 mg PO BEDTIME 01/27/18 [History] HYDROmorphone [Dilaudid] 1 mg PO Q4H PRN #20 tab 01/29/18 [Rx] Promethazine [Phenergan] 25 mg PO Q4H PRN #20 tab 01/29/18 [Rx] Past Medical History HEENT History: Reports: None Cardiovascular History: Reports: None Respiratory History: Reports: None Gastrointestinal History: Reports: Cholelithiasis Genitourinary History: Reports: None [employer] History: Reports: 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 History: Reports: None Neurological History: Reports: Other (See Below) Other Neuro History: Epilepsy Psychiatric History: Reports: Anxiety Endocrine/Metabolic History: Reports: None Hematologic History: Reports: None Immunologic History: Reports: None Oncologic (Cancer) History: Reports: None Dermatologic History: Reports: None - Infectious Disease History Infectious Disease History: Reports: Chicken Pox, Measles, Mumps - Past Surgical History Head Surgeries/Procedures: Reports: None Female Surgical History: Reports: Tubal Ligation Social & Family History - Family History Family Medical History: Noncontributory - Tobacco Use Smoking Status *Q: Never Smoker Used Tobacco, but Quit: Yes Month/Year Tobacco Last Used: 2014 Second Hand Smoke Exposure: No - Caffeine Use Caffeine Use: Reports: Coffee, Soda, Tea - Recreational Drug Use Recreational Drug Use: No H&P Review of Systems - Review of Systems: Review Of Systems: See Below General: Denies: Fever, Chills, Malaise HEENT: Denies: Dysphasia, Headaches, Sore Throat Pulmonary: Denies: Shortness of Breath, Wheezing, Pleuritic Chest Pain Cardiovascular: Denies: Chest Pain, Palpitations, Edema Gastrointestinal: Reports: Abdominal Pain, Decreased Appetite. Denies: Black Stool, Bloody Stool, Diarrhea, Nausea, Vomiting Genitourinary: Denies: Dysuria, Hematuria 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: Denies: Neck Pain, Leg Pain Skin: Denies: Cyanosis Psychiatric: Reports: Depression, Agitation. Denies: Confusion Neurological: Denies: Confusion, Dizziness, Headache Hematologic/Lymphatic: Denies: Anemia Immunologic: Denies: Anaphylaxis Exam - Exam Exam: See Below - Vital Signs Vital Signs: Last Vital Signs Temp 97.5 F 01/31/18 18:52 Pulse 95 01/31/18 18:52 Resp 20 01/31/18 18:52 BP 136/72 01/31/18 18:52 Pulse Ox 95 01/31/18 18:52 Weight: 78.471 kg - Exam Quality Assessment: DVT Prophylaxis General: Alert, Oriented, Cooperative, Mild Distress HEENT: Conjunctiva Clear, EACs Clear, EOMI, Hearing Intact, Mucosa Moist & [place] , Nares Patent, Normal Nasal Septum, Posterior Pharynx Clear, PERRLA Neck: Supple, Trachea Midline, 2 Lungs: Clear to Auscultation, Normal Respiratory Effort Cardiovascular: Regular Rate, Regular Rhythm, Normal S1, Normal S2 GI/Abdominal Exam: Normal Bowel Sounds, Soft, No Organomegaly, No Distention, Tender (Female) Exam: Deferred Rectal (Female) Exam: Deferred Back Exam: Normal Inspection Extremities: Normal Inspection, Non-Tender, No Pedal Edema, Normal Capillary Refill Peripheral Pulses: 2+: Radial (L), Radial (R), Posterior Tibial (L), Posterior Tibial (R), Dorsalis Pedis (L), Dorsalis Pedis (R) Skin: Warm, Dry, Intact Neurological: Cranial Nerves Intact Neuro Extensive - Mental Status: Alert, Oriented x3, Normal Mood/Affect, Normal Cognition Neuro Extensive - Motor, Sensory, Reflexes: CN II-XII Intact Psychiatric: Alert, Normal Affect, Agitated - Patient Data Result Diagrams: 01/31/18 19:04 01/31/18 19:04 *Q Meaningful Use (ADM) - VTE *Q VTE Criteria *Q: - Stroke *Q Stroke Criteria *Q: - AMI *Q AMI Criteria *Q: - Problem List (1) Migraine SNOMED Code(s): 65449863 ICD Code: G43.909 - MIGRAINE, UNSP, NOT INTRACTABLE, WITHOUT STATUS MIGRAINOSUS Status: Chronic Priority: Low Current Visit: Yes (2) Symptomatic cholelithiasis SNOMED Code(s): 861889719 ICD Code: K80.20 - CALCULUS OF GALLBLADDER W/O CHOLECYSTITIS W/O OBSTRUCTION Status: Acute Priority: High Current Visit: Yes Problem Details: Ultrasound without significant findings, as well as no leukocytosis and normal LFTs. Patient likely has symptomatic cholelithiasis, as there is no objective evidence to support a diagnosis of acute cholecystitis. Problem List Initiated/Reviewed/Updated: Yes Orders Last 24hrs: Active Orders 24 hr Category Date Time Status Patient Status [ADT] Routine ADT 01/31/18 21:01 Ordered Ambulate [RC] PER UNIT ROUTINE Care 01/31/18 21:06 Ordered Antiembolic Devices [RC] PER UNIT ROUTINE Care 01/31/18 21:03 Ordered Oxygen Therapy [RC] PRN Care 01/31/18 21:01 Ordered Up With Assistance [RC] ASDIRECTED Care 01/31/18 21:01 Ordered VTE/DVT Education [RC] PER UNIT ROUTINE Care 01/31/18 21:01 Ordered Vital Signs [RC] Q4H Care 01/31/18 21:01 Ordered Nothing per Oral Now Diet [DIET] Diet 01/31/18 Dinner Ordered CBC WITH AUTO DIFF [HEME] AM Lab 02/01/18 05:11 Ordered CBC WITH AUTO DIFF [HEME] AM Lab 02/02/18 05:11 Ordered CBC WITH AUTO DIFF [HEME] AM Lab 02/03/18 05:11 Ordered COMPREHENSIVE METABOLIC PN,CMP [CHEM] AM Lab 02/01/18 05:11 Ordered COMPREHENSIVE METABOLIC PN,CMP [CHEM] AM Lab 02/02/18 05:11 Ordered COMPREHENSIVE METABOLIC PN,CMP [CHEM] AM Lab 02/03/18 05:11 Ordered MAGNESIUM [CHEM] AM Lab 02/01/18 05:11 Ordered HYDROmorphone [Dilaudid] Med 01/31/18 21:01 Ordered 1 mg IVPUSH Q2H PRN Promethazine [Phenergan] Med 01/31/18 21:01 Ordered 25 mg IM Q6H PRN Sequential Compression Device [OM.PC] Per Unit Routine Oth 01/31/18 21:02 Ordered Resuscitation Status Routine Resus Stat 01/31/18 21:01 Ordered Medication Orders Hydromorphone HCl (Dilaudid) 0.5 mg IVPUSH ONETIME PRN PRN Reason: Abdominal Pain Last Admin: 01/31/18 19:19 Dose: 0.5 mg Hydromorphone HCl (Dilaudid) 1 mg IVPUSH Q2H PRN PRN Reason: Pain (severe 7-10) Lactated Ringer's (Ringers, Lactated) 1,000 mls @ 999 mls/hr IV .BOLUS DEREK Last Admin: 01/31/18 19:21 Dose: 999 mls/hr Promethazine HCl (Phenergan) 25 mg IM Q6H PRN PRN Reason: Nausea Assessment/Plan Comment:: 37-year-old female admitted biliary colic with history of cholelithiasis, migraine, and depression. Biliary colic: Ultrasound done on 01/28/28 showed cholelithiasis and a diffuse fatty liver. She was seen by surgery and and scheduled for outpatient elective cholecystectomy. Currently liver function tests are within normal limits as well as bilirubin. There is no leukocytosis or findings suggestive of cholecystitis. I did crisis intervention counselor Dr. Dooley, surgery, and he is aware of patient. We'll treat pain with IV Dilaudid 1 mg every 2 hours and nausea and vomiting with Phenergan 25 mg IM. Of note on previous admission it was noted that the patient was nonadherent to diet and was found eating a anne cheeseburger during rounds Dr. Abarca. Migraine: Currently stable patient has received Botox injections recently and has had good results. VTE: SCD, Ambulation, No pharm secondary to possible surgery and low risk. Dispo: 1-2 days pending.
[2018-01-31] MEDS: Lactated Ringers 1,000 ML IV SCH (22:06)
[2018-02-01] MEDS: HYDROmorphone 2 MG/ML SDV IVPUSH PRN ×2 (04:20→06:17)
[2018-02-01] MEDS: Promethazine 25 MG/ML SDV IM PRN ×2 (05:30→14:59)
[2018-02-01] MEDS: Lactated Ringers 1,000 ML IV SCH (06:29)
[2018-02-01 06:41] LABS: CHLORIDE,CL 107 mmol/L (98-107); SODIUM,NA 141 mmol/L (136-145)
[2018-02-01] MEDS: HYDROmorphone 1 MG/ML Syringe IVPUSH PRN ×4 (08:31→17:20)
[2018-02-01] MEDS ORDERED: Zonisamide 50 MG Capsule PO SCH (10:00)
--- NOTE | 2018-02-01 10:03 | PCM.PN ---
- General Info Date of Service: 02/01/18 Admission Dx/Problem (Free Text): Admission Diagnosis/Problem Admission Diagnosis/Problem Abdominal pain Subjective Update: Patient reports considerable pain. Has been requesting toradol as well as benadryl which I denied secondary to central nervous system depression and on recent admission was transferred to ICU secondary to this. Did tell her and family that no labs were elevated indicating emergent surgery. This was discussed with surgeon, Dr. Dooley who states patient will need to follow-up in clinic and stick to bland diet. Functional Status: Reports: Pain Controlled, Tolerating Diet, Ambulating, Urinating - Review of Systems General: Denies: Fever, Weakness, Fatigue HEENT: Denies: Headaches, Visual Changes Pulmonary: Denies: Shortness of Breath, Cough, Sputum Cardiovascular: Denies: Chest Pain, Orthopnea Gastrointestinal: Denies: Abdominal Pain, Diarrhea, Nausea, Vomiting Genitourinary: Denies: Dysuria 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: Denies: Neck Pain, Leg Pain Skin: Denies: Cyanosis Neurological: Denies: Confusion, Dizziness, Headache Psychiatric: Denies: Confusion - Patient Data Vitals - Most Recent: Last Vital Signs Temp 96.6 F 02/01/18 08:00 Pulse 79 02/01/18 08:00 Resp 22 H 02/01/18 08:00 BP 105/60 02/01/18 08:00 Pulse Ox 95 02/01/18 08:00 Weight - Most Recent: 78.471 kg I&O - Last 24 Hours: Intake & Output 01/31/18 02/01/18 02/01/18 22:59 06:59 14:59 Intake Total 999 Output Total 450 Balance 549 Lab Results Last 24 Hours: Laboratory Results - last 24 hr 02/01/18 02/01/18 02/01/18 Range/Units 05:00 05:50 05:50 WBC 5.82 (4.0-11.0) K/uL RBC 3.97 L (4.30-5.90) M/uL Hgb 10.9 L (12.0-16.0) g/dL Hct 33.4 L (36.0-46.0) % MCV 84.1 (80.0-98.0) fL MCH 27.5 (27.0-32.0) pg MCHC 32.6 (31.0-37.0) g/dL RDW Std Deviation 49.5 (28.0-62.0) fl RDW Coeff of Pepe 16 H (11.0-15.0) % Plt Count 322 (150-400) K/uL MPV 9.70 (7.40-12.00) fL Neut % (Auto) 43.6 L (48.0-80.0) % Lymph % (Auto) 45.5 H (16.0-40.0) % Heard % (Auto) 7.4 (0.0-15.0) % Eos % (Auto) 3.3 (0.0-7.0) % Baso % (Auto) 0.2 (0.0-1.5) % Neut # (Auto) 2.5 (1.4-5.7) K/uL Lymph # (Auto) 2.7 H (0.6-2.4) K/uL Heard # (Auto) 0.4 (0.0-0.8) K/uL Eos # (Auto) 0.2 (0.0-0.7) K/uL Baso # (Auto) 0.0 (0.0-0.1) K/uL Nucleated RBC % 0.0 /100WBC Nucleated RBCs # 0 K/uL Sodium 141 (136-145) mmol/L Potassium 3.7 (3.5-5.1) mmol/L Chloride 107 (98-107) mmol/L Carbon Dioxide 23.3 (21.0-32.0) mmol/L BUN 7 (7.0-18.0) mg/dL Creatinine 0.6 (0.6-1.0) mg/dL Est Cr Clr Drug Dosing 96.98 mL/min Estimated GFR (MDRD) > 60.0 ml/min Glucose 85 (74-106) mg/dL Calcium 8.5 (8.5-10.1) mg/dL Magnesium 1.5 (1.5-2.0) mg/dL Total Bilirubin 0.2 (0.2-1.0) mg/dL AST 15 (15-37) IU/L ALT 19 (14-63) IU/L Alkaline Phosphatase 81 (46-116) U/L Total Protein 5.9 L (6.4-8.2) g/dL Albumin 3.2 L (3.4-5.0) g/dL Globulin 2.7 (2.0-3.5) g/dL Albumin/Globulin Ratio 1.2 L (1.3-2.8) Urine Color YELLOW Urine Appearance CLEAR Urine pH 5.5 (5.0-8.0) Ur Specific [place] 1.020 (1.001-1.035) Urine Protein NEGATIVE (NEGATIVE) mg/dL Urine Glucose (UA) NEGATIVE (NEGATIVE) mg/dL Urine Ketones NEGATIVE (NEGATIVE) mg/dL Urine Occult Blood NEGATIVE (NEGATIVE) Urine Nitrite NEGATIVE (NEGATIVE) Urine Bilirubin NEGATIVE (NEGATIVE) Urine Urobilinogen 0.2 (<2.0) EU/dL Ur Leukocyte Esterase MODERATE (NEGATIVE) Urine RBC NONE SEEN (0-2/HPF) Urine WBC 8-10 (0-5/HPF) Ur Epithelial Cells MODERATE (NONE-FEW) Urine Bacteria 1+ H (NEGATIVE) Urine Mucus LIGHT (NONE-MOD) Med Orders - Current: Current Medications Carbamazepine (Tegretol Tab) 200 mg PO BID DEREK Hydromorphone HCl (Dilaudid) 1 mg IVPUSH Q2H PRN PRN Reason: Pain (severe 7-10) Last Admin: 02/01/18 08:31 Dose: 1 mg Lactated Ringer's (Ringers, Lactated) 1,000 mls @ 999 mls/hr IV .BOLUS DEREK Last Admin: 01/31/18 19:21 Dose: 999 mls/hr Lactated Ringer's (Ringers, Lactated) 1,000 mls @ 125 mls/hr IV ASDIRECTED DEREK Last Admin: 02/01/18 06:29 Dose: 125 mls/hr Pantoprazole Sodium (Protonix) 40 [facility] Zonisamide 100 Mg 3 each PO BEDTIME [facility] Zonisamide 100 Mg 1 each PO DAILY DEREK Promethazine HCl (Phenergan) 25 mg IM Q6H PRN PRN Reason: Nausea Last Admin: 02/01/18 05:30 Dose: 25 mg Sertraline HCl (Zoloft) 100 mg PO BEDTIME DEREK Discontinued Medications Hydromorphone HCl (Dilaudid) 0.5 mg IVPUSH ONETIME PRN PRN Reason: Abdominal Pain Last Admin: 01/31/18 19:19 Dose: 0.5 mg Hydromorphone HCl (Dilaudid) 1 mg IV ONETIME ONE Stop: 01/31/18 20:48 Last Admin: 01/31/18 20:52 Dose: 1 mg Hydromorphone HCl (Dilaudid) 1 mg IVPUSH Q2H PRN PRN Reason: Pain (severe 7-10) Last Admin: 02/01/18 06:17 Dose: 1 mg Sodium Chloride (Normal Saline) 1,000 mls @ 999 mls/hr IV STAT ONE Stop: 01/31/18 20:01 Last Admin: 01/31/18 19:22 Dose: Not Given Ketorolac Tromethamine (Toradol) 30 mg IVPUSH ONETIME ONE Stop: 01/31/18 19:42 Last Admin: 01/31/18 19:52 Dose: 30 mg Ketorolac Tromethamine (Toradol) Confirm Administered Dose 30 mg .ROUTE .STK- MED ONE Stop: 01/31/18 19:44 Last Admin: 01/31/18 19:51 Dose: Not Given Zonisamide (Zonisamide) 100 mg PO DAILY DEREK - Exam Quality Assessment: DVT Prophylaxis General: Alert, Oriented HEENT: Pupils Equal, Pupils Reactive, EOMI, Mucous Membr. Moist/[place] Neck: Supple, Trachea Midline, No JVD Lungs: Clear to Auscultation, Normal Respiratory Effort Cardiovascular: Regular Rate, Regular Rhythm GI/Abdominal Exam: Normal Bowel Sounds, Soft, No Organomegaly, No Distention, Tender (Female) Exam: Deferred Back Exam: Normal Inspection Extremities: Normal Inspection, Non-Tender, No Pedal Edema, Normal Capillary Refill, Pedal Edema Peripheral Pulses: 2+: Radial (L), Radial (R), Posterior Tibial (L), Posterior Tibial (R), Dorsalis Pedis (L), Dorsalis Pedis (R) Skin: Warm, Dry, Intact Neurological: No New Focal Deficit Psy/Mental Status: Alert, Normal Affect, Agitated - Problem List & Annotations (1) Migraine SNOMED Code(s): 94690134 Code(s): G43.909 - MIGRAINE, UNSP, NOT INTRACTABLE, WITHOUT STATUS MIGRAINOSUS Status: Chronic Priority: Low Current Visit: Yes (2) Symptomatic cholelithiasis SNOMED Code(s): 647481181 Code(s): K80.20 - CALCULUS OF GALLBLADDER W/O CHOLECYSTITIS W/O OBSTRUCTION Status: Acute Priority: High Current Visit: Yes Annotation/Comment:: Ultrasound without significant findings, as well as no leukocytosis and normal LFTs. Patient likely has symptomatic cholelithiasis, as there is no objective evidence to support a diagnosis of acute cholecystitis. - Problem List Review Problem List Initiated/Reviewed/Updated: Yes - My Orders Last 24 Hours: My Active Orders 01/31/18 21:01 Patient Status [ADT] Routine Oxygen Therapy [RC] PRN Up With Assistance [RC] ASDIRECTED VTE/DVT Education [RC] PER UNIT ROUTINE Vital Signs [RC] Q4H Promethazine [Phenergan] 25 mg IM Q6H PRN Resuscitation Status Routine 01/31/18 21:02 Sequential Compression Device [OM.PC] Per Unit Routine 01/31/18 21:03 Antiembolic Devices [RC] PER UNIT ROUTINE 01/31/18 21:06 Ambulate [RC] PER UNIT ROUTINE 01/31/18 21:30 Lactated Ringers [Ringers, Lactated] 1,000 ml IV ASDIRECTED 01/31/18 21:38 Consult to Physician [CONS] Routine 01/31/18 21:39 Notify Provider Consults [RC] ASDIRECTED 02/01/18 07:45 HYDROmorphone [Dilaudid] 1 mg IVPUSH Q2H PRN 02/01/18 09:18 URINALYSIS W/MICROSCOPIC [UA W/MICROSCOPIC] [URIN] Routine 02/01/18 09:56 Abdomen Pelvis w Cont [CT] Stat 02/01/18 10:00 INFLUENZA A+B AG SCREEN [RM] Stat STREP SCRN A RAPID W CULT CONF [RM] Stat 02/01/18 10:15 Patient's Own Medication [Ptom] 1 each PO DAILY 02/01/18 21:00 Sertraline [Zoloft] 100 mg PO BEDTIME Zonisamide [Zonegran] 300 mg PO BEDTIME carBAMazepine [TEGretol Tab] 200 mg PO BID 02/01/18 Breakfast Full Liquid Diet [DIET] 02/02/18 05:11 CBC WITH AUTO DIFF [HEME] AM COMPREHENSIVE METABOLIC PN,CMP [CHEM] AM 02/02/18 09:00 Pantoprazole [ProTONIX] 40 mg PO DAILY 02/03/18 05:11 CBC WITH AUTO DIFF [HEME] AM COMPREHENSIVE METABOLIC PN,CMP [CHEM] AM - Plan Plan:: 37-year-old female admitted biliary colic with history of cholelithiasis, migraine, and depression. Biliary colic: Ultrasound done on 01/28/28 showed cholelithiasis and a diffuse fatty liver. No elevation of LFT's or bili on labs done last evening or this morning. Have talked with surgery and secondary to this she will need to follow -up in clinic and maintain a bland diet until then. Urine was postive for UTI but dirty will repeat UA for possible UTI this am. Patient also complaining of sore throat. Will get rapid strep and influenza. She did not get her flu vaccination this year. Secondary to continued pain will get a CT abd/pelvis to rule out other pathology that could be causing her pain. Start patient on full liquid diet and resume majority of home meds for history of seizures. 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 Migraine: Currently stable patient has received Botox injections recently and has had good results. VTE: SCD, Heparin Dispo: 1-2 days pending.
[2018-02-01] MEDS: ZONISAMIDE 100 MG PO SCH (10:21)
[2018-02-01] MEDS: carBAMazepine 200 MG Tab PO SCH ×2 (10:21→21:16)
[2018-02-01] MEDS: Pantoprazole 40 MG Tab.CR PO SCH (10:22)
[2018-02-01] MEDS ORDERED: Iopamidol 755 MG/ML 200 ML Multipack Bottle IVPUSH STA (12:45)
--- NOTE | 2018-02-01 12:57 | CT ---
CT of the abdomen and pelvis with contrast. HISTORY: Pain TECHNIQUE: Axial CT images were obtained of the abdomen and pelvis following administration of Isovue -370 without complication. Coronal and sagittal reconstructions obtained. FINDINGS: There are a few tiny nodular opacities noted within the lung bases measuring up to 5 mm. The liver, spleen, adrenal glands, and pancreas appear normal. The gallbladder is normal. No bulky re troperitoneal lymphadenopathy or abdominal ascites. The kidneys enhance and function symmetrically without evidence of obstructive uropathy. Tiny cyst no mihaela within the lower pole of the right kidney. The large and small bowel are normal in caliber without evidence of obstruction. No focal pericolonic inflammation or stranding is noted. The urinary bladder is normal. Small involuting cyst within the right ovary. No bulky pelvic lymphadenopathy or free pelvic fluid. No suspicious osseous abnormalities identified. IMPRESSION: 1. Acute findings within the abdomen or pelvis. 2. Several tiny pulmonary nodules within the left lung base, likely benign given the patient's age. I f the patient has known risk factors consider follow-up imaging in 12 months.
[2018-02-01] MEDS ORDERED: ClonazePAM 1 MG Tab PO PRN (13:08)
[2018-02-01] MEDS ORDERED: ClonazePAM 1 MG Tab PO SCH (14:00)
[2018-02-01] MEDS: Gabapentin 800 MG Tab PO SCH ×2 (14:47→21:59)
[2018-02-01] MEDS ORDERED: Morphine 2 MG/ML Syringe IVPUSH PRN (15:43)
[2018-02-01] MEDS ORDERED: ClonazePAM 1 MG Tab PO STA (15:44)
[2018-02-01] MEDS ORDERED: Ciprofloxacin 500 MG Tab PO SCH (17:30)
[2018-02-01] MEDS: Ciprofloxacin 500 MG Tab PO SCH (17:39)
[2018-02-01] MEDS ORDERED: Sertraline 100 MG Tab PO SCH (21:00)
[2018-02-01] MEDS ORDERED: ZONISAMIDE 100 MG PO SCH (21:00)
[2018-02-01] MEDS: Heparin Sodium 5,000 Units/ML Vial SUBCUT SCH (21:17)
[2018-02-01] MEDS ORDERED: ClonazePAM 1 MG Tab PO ONE (21:59)
[2018-02-01] MEDS: ClonazePAM 1 MG Tab PO SCH (21:59)
[2018-02-02] MEDS: HYDROmorphone 1 MG/ML Syringe IVPUSH PRN ×3 (00:36→13:20)
[2018-02-02 05:58] LABS: CHLORIDE,CL 106 mmol/L (98-107); SODIUM,NA 139 mmol/L (136-145)
[2018-02-02] MEDS: Gabapentin 800 MG Tab PO SCH ×2 (06:46→13:55)
[2018-02-02] MEDS: Pantoprazole 40 MG Tab.CR PO SCH (06:46)
[2018-02-02] MEDS: ClonazePAM 1 MG Tab PO SCH ×2 (06:46→13:55)
[2018-02-02] MEDS ORDERED: ClonazePAM 1 MG Tab PO ONE ×2 (06:47→14:00)
[2018-02-02] MEDS: Ciprofloxacin 500 MG Tab PO SCH (08:13)
[2018-02-02] MEDS: carBAMazepine 200 MG Tab PO SCH (08:14)
[2018-02-02] MEDS: ZONISAMIDE 100 MG PO SCH (08:14)
[2018-02-02] MEDS: Heparin Sodium 5,000 Units/ML Vial SUBCUT SCH (08:15)
[2018-02-02 11:49] VITALS: BP 109/62
--- NOTE | 2018-02-02 17:25 | PCM.DCSUM1 ---
Discharge Summary - Hospital Course HPI Initial Comments: 37-year-old female admitted 01/31/18 for biliary colic with history of cholelithiasis, migraine, and depression. Brief History: Patient presented to Emergency department with chief complaint of right upper quadrant pain 10 out of 10 radiating to the back. She was recently admitted for similar symptoms on 01/27/18 at which time an abdominal ultrasound showed cholelithiasis and diffuse fatty liver. Patient was consulted by general surgery on 01/28/18 and was scheduled to follow-up in clinic for elective outpatient cholecystectomy. Patient stated that after being discharged on 01/29/18 her pain never improved. She had progressive right upper quadrant pain radiating to the back with associated nausea and vomiting she denied any current chest pain, palpitations, shortness breath, syncopal episodes, or focal neurologic deficits. Patient does admit to several months of nausea and vomiting that she believes was associated with this cholelithiasis. States pain started approximately 1 week ago 01/27/28. Emergency department: CBC, lactate, and CMP unremarkable. Normal liver function tests as well as non-elevated bilirubin. Blood cultures were obtained. She was given 0.5 mg IV Dilaudid, 30 mg IV Toradol, and 1 L LR bolus. Patient was admitted for biliary colic. - Discharge Data Discharge Date: 02/02/18 Discharge Disposition: Home, Self-Care 01 Condition: Good - Discharge Diagnosis/Problem(s) (1) Migraine SNOMED Code(s): 07574726 ICD Code: G43.909 - MIGRAINE, UNSP, NOT INTRACTABLE, WITHOUT STATUS MIGRAINOSUS Status: Chronic Priority: Low Current Visit: Yes (2) Symptomatic cholelithiasis SNOMED Code(s): 899897374 ICD Code: K80.20 - CALCULUS OF GALLBLADDER W/O CHOLECYSTITIS W/O OBSTRUCTION Status: Acute Priority: High Current Visit: Yes Problem Details: Ultrasound without significant findings, as well as no leukocytosis and normal LFTs. Patient likely has symptomatic cholelithiasis, as there is no objective evidence to support a diagnosis of acute cholecystitis. - Patient Summary/Data Consults: Consultations 01/31/18 21:38 Consult to Physician [CONS] Routine - Patient Instructions Diet: GI Soft/Low Residue/Low Fiber Activity: Rest and Relax Today Driving: Do Not Drive Showering/Bathing: May Shower Notify Provider of: Fever, Increased Pain, Nausea and/or Vomiting Other/Special Instructions: Follow-up with Dr. Dooley tomorrow. Take medications as prescribed. Discontinue Dilaudid oral medication for pain. Do not take with Loratab! This was discussed with mother who agrees. Follow-up with PCP. Return to ED if new or worsening symptoms. - Discharge Plan Prescriptions/Med Rec: Ciprofloxacin [IJD: Ciprofloxacin HCl] 500 mg PO BID #12 tablet Hydrocodone/Acetaminophen [Hydrocodon-Acetaminophn 10-325] 1 each PO Q6H #8 tablet Home Medications: Home Meds Pantoprazole Sodium [Protonix] 40 mg PO DAILY 02/25/17 [History] Zonisamide [Zonegran] 100 mg PO DAILY 02/25/17 [History] carBAMazepine [Tegretol] 200 mg PO BID 02/25/17 [History] clonazePAM [Clonazepam] 2 mg PO TID 02/25/17 [History] Gabapentin [Neurontin] 800 mg PO TID 01/27/18 [History] Sertraline HCl [Zoloft] 100 mg PO BEDTIME 01/27/18 [History] Zonisamide [Zonegran] 300 mg PO BEDTIME 01/27/18 [History] Promethazine [Phenergan] 25 mg PO Q4H PRN #20 tab 01/29/18 [Rx] Ciprofloxacin [IJD: Ciprofloxacin HCl] 500 mg PO BID #12 tablet 02/02/18 [Rx] Hydrocodone/Acetaminophen [Hydrocodon-Acetaminophn 10-325] 1 each PO Q6H #8 tablet 02/02/18 [Rx] Patient Handouts: Acetaminophen; Hydrocodone tablets or capsules, Fat and Cholesterol Restricted Diet, [id number], Ciprofloxacin tablets, [place] Diet Referrals: Akshat Dooley MD [Physician] - 02/03/18 2:30 pm Marcos Mcneil [Primary Care Provider] - 02/10/18 9:30 am - Discharge Summary/Plan Comment DC Time >30 min.: Yes Discharge Summary/Plan Comment: 37-year-old female admitted 01/31/18 for biliary colic with history of cholelithiasis, migraine, and depression. Patient presented to Emergency department with chief complaint of right upper quadrant pain 10 out of 10 radiating to the back. She was recently admitted for similar symptoms on 01/27/18 at which time an abdominal ultrasound showed cholelithiasis and diffuse fatty liver. Patient was consulted by general surgery on 01/28/18 and was scheduled to follow-up in clinic for elective outpatient cholecystectomy. Patient stated that after being discharged on her pain never improved. She had progressive right upper quadrant pain radiating to the back with associated nausea and vomiting she denied any current chest pain, palpitations, shortness breath, syncopal episodes, or focal neurologic deficits. Patient does admit to several months of nausea and vomiting that she believes was associated with this cholelithiasis. States pain started approximately 1 week ago 01/27/28. Emergency department: CBC, lactate, and CMP unremarkable. Normal liver function tests as well as non- elevated bilirubin. Blood cultures were obtained. She was given 0.5 mg IV Dilaudid, 30 mg IV Toradol, and 1 L LR bolus. Patient was admitted for biliary colic. During admission initial urinalysis was somewhat dirty so repeated analysis was performed and found to be positive for UTI. She was started on ciprofloxacin for this. Patient was also treated with IV Dilaudid 1 mg every 2 hours. This was monitored very closely as patient on previous admission had been given 2 mg of Dilaudid with resulting unresponsiveness and transfer to ICU. Patient is on several central nervous system depressants at home including clonazepam 2 mg 3 times a day, gabapentin, and had been taking Dilaudid orally as an outpatient. Secondary to continued symptoms CT abdomen and pelvis with contrast was ordered to elicit any other etiology for her abdominal pain. This exam was negative for any acute pathology. It did show several tiny pulmonary nodules within the left lung place thought most likely benign given the patient's age. As per radiologist if the patient had known risk factors he would recommend a follow- up CT in 12 months. This was communicated to the patient as well as her mother. Surgery, Dr. Dooley, was consulted on patient. He had seen the patient on previous admission and secondary to no elevation of liver function tests as well as bilirubin. The patient was instructed to follow-up in clinic and stick to bland diet which she was scheduled for on Thursday02/03/18. Dr. Dooley was also concerned that the patient was not following recommended bland/liquid diet as on previous admission she was found to be eating a "anne cheeseburger" . During her stay she primarily stayed on clear liquid diet. She continued to have reported pain and was asking for Dilaudid every 2 hours. On assessment I did find the patient having point pupils, slurred speech, and repeating questions showing clear influence of the pain medication. She did report to the nursing staff as well as myself jokingly that she snorted heroin. I did monitor the patient closely throughout her stay and she continued to have pain however as per nursing was found to be "playing on her phone" until they entered the room. In addition, on night before discharge while using the bathroom she lost her balance and fell causing no trauma or head injury but was clearly impaired from pain medication. This was discussed with her mother multiple times and her mother denied that she felt that she was altered secondary to the pain medication and she felt this was more related to her being "tired and just waking up from sleep". On third day of admission, patient was discharged so she could follow-up with her Gen. surgery appointment on the following day. I did talk with the mother and patient that secondary to her symptoms she would most likely benefit from an EGD and colonoscopy as I'm not completely convinced that all of her symptoms are directly related to her known cholelithiasis. Of note, patient was verbally abusive to nursing staff and hospital administration was notified of this to talk with patient. They were also notified that there had been concerns from previous admission. This was done as soon as patient was admitted for the second time. Patient was instructed to return emergency department if she had any new or worsening symptoms. She was discharged with Lortab 10-325mg and told to discontinue dilaudid as mother and patient stated that she stopped taking it because it did not help. I talked with mother that she is to NOT take both pain medications and to return the dilaudid to the pharmacy. In addition, patient was discharged with Cipro for a total of 7 days treatment for her uncomplicated UTI. - General Info Date of Service: 02/02/18 Admission Dx/Problem (Free Text: Admission Diagnosis/Problem Admission Diagnosis/Problem Abdominal pain Subjective Update: Patient sleeping comfortably mother states that she continues to have on and off pain and is only able to keep jello, pop, broth, and coffee down. As per nursing continuing to ask for dilaudid every 2 hrs when she is awake. Functional Status: Reports: Pain Controlled, Tolerating Diet - Review of Systems General: Denies: Fever, Weakness, Fatigue HEENT: Denies: Headaches, Visual Changes Pulmonary: Denies: Shortness of Breath, Hemoptysis Cardiovascular: Denies: Chest Pain, Palpitations, Edema Gastrointestinal: Reports: Nausea. Denies: Abdominal Pain, Constipation, Vomiting Genitourinary: Denies: Dysuria, Frequency, Hematuria 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: Denies: Neck Pain, Leg Pain Skin: Denies: Cyanosis Neurological: Reports: Confusion, Trouble Speaking, Difficulty Walking. Denies : Dizziness, Headache Psychiatric: Reports: Confusion - Patient Data Vitals - Most Recent: Last Vital Signs Temp 96.8 F 02/02/18 11:48 Pulse 76 02/02/18 11:48 Resp 20 02/02/18 11:48 BP 109/62 02/02/18 11:48 Pulse Ox 91 L 02/02/18 11:48 Weight - Most Recent: 78.471 kg I&O - Last 24 hours: Intake & Output 02/02/18 02/02/18 02/02/18 06:59 14:59 22:59 Intake Total 800 Output Total 700 Balance 100 Lab Results - Last 24 hrs: Laboratory Results - last 24 hr 02/02/18 02/02/18 02/02/18 Range/Units 05:02 05:02 09:24 WBC 5.88 (4.0-11.0) K/uL RBC 4.06 L (4.30-5.90) M/uL Hgb 10.9 L (12.0-16.0) g/dL Hct 34.4 L (36.0-46.0) % MCV 84.7 (80.0-98.0) fL MCH 26.8 L (27.0-32.0) pg MCHC 31.7 (31.0-37.0) g/dL RDW Std Deviation 51.3 (28.0-62.0) fl RDW Coeff of Pepe 17 H (11.0-15.0) % Plt Count 335 (150-400) K/uL MPV 9.80 (7.40-12.00) fL Neut % (Auto) 34.0 L (48.0-80.0) % Lymph % (Auto) 51.0 H (16.0-40.0) % [place] % (Auto) 11.1 (0.0-15.0) % Eos % (Auto) 3.6 (0.0-7.0) % Baso % (Auto) 0.3 (0.0-1.5) % Neut # (Auto) 2.0 (1.4-5.7) K/uL Lymph # (Auto) 3.0 H (0.6-2.4) K/uL [place] # (Auto) 0.7 (0.0-0.8) K/uL Eos # (Auto) 0.2 (0.0-0.7) K/uL Baso # (Auto) 0.0 (0.0-0.1) K/uL Nucleated RBC % 0.0 /100WBC Nucleated RBCs # 0 K/uL Sodium 139 (136-145) mmol/L Potassium 3.5 (3.5-5.1) mmol/L Chloride 106 (98-107) mmol/L Carbon Dioxide 24.9 (21.0-32.0) mmol/L BUN 7 (7.0-18.0) mg/dL Creatinine 0.8 (0.6-1.0) mg/dL Est Cr Clr Drug Dosing 72.73 mL/min Estimated GFR (MDRD) > 60.0 ml/min Glucose 85 (74-106) mg/dL Calcium 8.5 (8.5-10.1) mg/dL Total Bilirubin 0.2 (0.2-1.0) mg/dL AST 15 (15-37) IU/L ALT 19 (14-63) IU/L Alkaline Phosphatase 79 (46-116) U/L Total Protein 6.4 (6.4-8.2) g/dL Albumin 3.2 L (3.4-5.0) g/dL Globulin 3.2 (2.0-3.5) g/dL Albumin/Globulin Ratio 1.0 L (1.3-2.8) Prolactin 39 H (0-27) ng/mL Med Orders - Current: Current Medications Carbamazepine (Tegretol Tab) 200 mg PO BID [facility] Last Admin: 02/02/18 08:14 Dose: 200 mg Ciprofloxacin (Ciprofloxacin Hcl) 500 mg PO BID [facility] Last Admin: 02/02/18 08:13 Dose: 500 mg Clonazepam (Klonopin) 2 mg PO TID [facility] Last Admin: 02/02/18 13:55 Dose: 2 mg Gabapentin (Neurontin) 800 mg PO TID [facility] Last Admin: 02/02/18 13:55 Dose: 800 mg Heparin Sodium (Porcine) (Heparin Sodium) 5,000 units SUBCUT Q12HR [facility] Last Admin: 02/02/18 08:15 Dose: 5,000 units Hydromorphone HCl (Dilaudid) 1 mg IVPUSH Q2H PRN PRN Reason: Pain (severe 7-10) Last Admin: 02/02/18 13:20 Dose: 1 mg Morphine Sulfate (Morphine) 2 mg IVPUSH Q4H PRN PRN Reason: Pain Last Admin: 02/01/18 16:17 Dose: 1 mg Pantoprazole Sodium (Protonix) 40 mg PO ACBREAKFAST [facility] Last Admin: 02/02/18 06:46 Dose: 40 mg Zonisamide 100 Mg 3 each PO BEDTIME [facility] Last Admin: 02/01/18 21:19 Dose: 3 each Zonisamide 100 Mg 1 each PO DAILY [facility] Last Admin: 02/02/18 08:14 Dose: 1 each Promethazine HCl (Phenergan) 25 mg IM Q6H PRN PRN Reason: Nausea Last Admin: 02/01/18 14:59 Dose: 25 mg Sertraline HCl (Zoloft) 100 mg PO BEDTIME [facility] Last Admin: 02/01/18 21:14 Dose: 100 mg Discontinued Medications Ciprofloxacin (Ciprofloxacin Hcl) 500 mg PO BID [facility] Last Admin: 02/01/18 17:39 Dose: Not Given Clonazepam (Klonopin) 1 mg PO BID PRN PRN Reason: Anxiety Clonazepam (Klonopin) 1 mg PO TID [facility] Last Admin: 02/01/18 14:47 Dose: 1 mg Clonazepam (Klonopin) 1 mg PO STAT STA Stop: 02/01/18 15:45 Last Admin: 02/01/18 16:16 Dose: 1 mg Hydromorphone HCl (Dilaudid) 0.5 mg IVPUSH ONETIME PRN PRN Reason: Abdominal Pain Last Admin: 01/31/18 19:19 Dose: 0.5 mg Hydromorphone HCl (Dilaudid) 1 mg IV ONETIME ONE Stop: 01/31/18 20:48 Last Admin: 01/31/18 20:52 Dose: 1 mg Hydromorphone HCl (Dilaudid) 1 mg IVPUSH Q2H PRN PRN Reason: Pain (severe 7-10) Last Admin: 02/01/18 06:17 Dose: 1 mg Sodium Chloride (Normal Saline) 1,000 mls @ 999 mls/hr IV STAT ONE Stop: 01/31/18 20:01 Last Admin: 01/31/18 19:22 Dose: Not Given Lactated Ringer's (Ringers, Lactated) 1,000 mls @ 999 mls/hr IV .BOLUS [facility] Last Admin: 01/31/18 19:21 Dose: 999 mls/hr Lactated Ringer's (Ringers, Lactated) 1,000 mls @ 125 mls/hr IV ASDIRECTED [facility] Last Admin: 02/01/18 06:29 Dose: 125 mls/hr Iopamidol (Isovue Multipack-370 (76%)) 200 ml IVPUSH ONETIME STA Stop: 02/01/18 12:46 Last Admin: 02/01/18 12:45 Dose: 100 ml Ketorolac Tromethamine (Toradol) 30 mg IVPUSH ONETIME ONE Stop: 01/31/18 19:42 Last Admin: 01/31/18 19:52 Dose: 30 mg Ketorolac Tromethamine (Toradol) Confirm Administered Dose 30 mg .ROUTE .STK- MED ONE Stop: 01/31/18 19:44 Last Admin: 01/31/18 19:51 Dose: Not Given Zonisamide (Zonisamide) 100 mg PO DAILY [facility] Last Admin: 02/01/18 11:04 Dose: Not Given - Exam Quality Assessment: Reports: DVT Prophylaxis General: Reports: Alert. Denies: Oriented ([place] pupils) HEENT: Reports: Pupils Equal, Pupils Reactive, EOMI, Mucous Membr. Moist/[place] Neck: Reports: Supple, Trachea Midline Lungs: Reports: Clear to Auscultation, Normal Respiratory Effort Cardiovascular: Reports: Regular Rate, Regular Rhythm GI/Abdominal Exam: Normal Bowel Sounds, Soft, No Organomegaly, No Distention, Tender (Female) Exam: Deferred Rectal (Female) Exam: Deferred Back Exam: Reports: Normal Inspection Extremities: Normal Inspection, Non-Tender, No Pedal Edema, Normal Capillary Refill Skin: Reports: Warm, Dry, Intact Neurological: Reports: No New Focal Deficit Psy/Mental Status: Reports: Alert, Agitated *Q Meaningful Use (DIS) - VTE *Q VTE Criteria *Q: - Stroke *Q Stroke Criteria *Q: - AMI *Q AMI Criteria *Q:
== END 2018-02-02 14:28 | disposition home or self-care (01) ==
LOC: MW.ED 18:43 → MW.MS 20:19
PROVIDERS: ADMIT Family Medicine; ATTEND Family Medicine
DX: K80.20 Calculus of gallbladder without cholecystitis without obstruction (principal); G43.909 Migraine, unspecified, not intractable, without status migrainosus; K76.0 Fatty (change of) liver, not elsewhere classified; F32.9 Major depressive disorder, single episode, unspecified; N39.0 Urinary tract infection, site not specified; R91.1 Solitary pulmonary nodule; F41.9 Anxiety disorder, unspecified; Z79.899 Other long term (current) drug therapy; Z88.6 Allergy status to analgesic agent; Z88.8 Allergy status to other drugs, medicaments and biological substances; Z88.4 Allergy status to anesthetic agent; Z88.2 Allergy status to sulfonamides; Z88.1 Allergy status to other antibiotic agents
CPT/HCPCS: 36415; 74177; 80053; 81001; 82150; 83605; 83690; 83735; 84146; 84484; 85025; 87040; 87081; 87086; 87804; 87880; 96361; 96374; 96375; 96376; 99285; A9270; J1170; J1644; J1885; J2270; J2550; J7120; Q9967; 96372; 99283; G0378

== ENCOUNTER 2018-02-15 09:25 | Day surgery (SDC) | payer MEDICARE, MEDICAID ==
[~2018-02-15 09:25] MED LIST: Bupivacaine 0.5% 10 ML SDV ONE; Lactated Ringers 1,000 ML IV SCH; Lidocaine 2% 5 ML SDV ONE; Midazolam 1 MG/ML 2 ML SDV ONE; Propofol 200 MG/20 ML SDV ONE; cefOXitin 2 GM in Premix Bag 1 BAG IV ONE; fentaNYL 100 MCG/2 ML SDV ONE
[2018-02-15] MEDS ORDERED: Scopolamine 1.5 MG Transdermal Patch TRDERM PRN (09:55)
--- NOTE | 2018-02-15 09:59 | PCM.PREANE ---
Preanesthetic Assessment - Anesthesia/Transfusion/Family Hx Anesthesia History: Prior Anesthesia Without Reaction Other Type of Anesthesia Reaction Comment: "I was given to much anesthesia & had problems with N&V" Family History of Anesthesia Reaction: No Transfusion History: No Prior Transfusion(s) Intubation History: Unknown - Review of Systems General: No Symptoms Pulmonary: No Symptoms Cardiovascular: No Symptoms Gastrointestinal: Abdominal Pain Neurological: No Symptoms Other: Reports: None - Physical Assessment Height: 1.55 m Weight: 80.286 kg ASA Class: 2 Mental Status: Alert & Oriented x3 Airway Class: Mallampati = 2 Dentition: Reports: Dentures (upper and lower) Thyro-Mental Finger Breadths: 2 Mouth Opening Finger Breadths: 2 ROM/Head Extension: Full Lungs: Clear to Auscultation, Normal Respiratory Effort Cardiovascular: Regular Rate, Regular Rhythm - Lab Values: Laboratory Last Values Urine HCG, Qual NEGATIVE (NEGATIVE) 02/15/18 09:27 - Allergies Allergies/Adverse Reactions: Allergies Allergy/AdvReac Type Severity Reaction Status Date / Time meperidine [From Demerol] Allergy Hives Verified 02/15/18 07:38 methylprednisolone Allergy Nausea and Verified 02/15/18 07:38 [From Medrol] Vomiting nalbuphine [From Nubain] Allergy Nausea and Verified 02/15/18 07:38 Vomiting ondansetron Allergy Hives Verified 02/15/18 07:38 [From Zofran (as hydrochloride)] rizatriptan [From Maxalt] Allergy Rash Verified 02/15/18 07:38 sulfamethoxazole Allergy Itching Verified 02/15/18 07:38 [From Bactrim] sumatriptan [From Imitrex] Allergy Headache Verified 02/15/18 07:38 trimethoprim [From Bactrim] Allergy Itching Verified 02/15/18 07:38 - Blood Blood Available: No - Anesthesia Plan Pre-Op Medication Ordered: None - Acknowledgements Anesthesia Type Planned: General Anesthesia Pt an Appropriate Candidate for the Planned Anesthesia: Yes Alternatives and Risks of Anesthesia Discussed w Pt/Guardian: Yes Pt/Guardian Understands and Agrees with Anesthesia Plan: Yes PreAnesthesia Questionnaire HEENT History: Reports: None Other HEENT History: oral surgery, top and bottom dentures, wears glasses Cardiovascular History: Reports: None Respiratory History: Reports: None Gastrointestinal History: Reports: Cholelithiasis, GERD Genitourinary History: Reports: None ADVERTISING DIRECTOR History: Reports: 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 History: Reports: None Neurological History: Reports: Migraines, Other (See Below) Other Neuro History: Epilepsy Psychiatric History: Reports: Anxiety Endocrine/Metabolic History: Reports: Obesity/BMI 30+ Hematologic History: Reports: None Immunologic History: Reports: None Oncologic (Cancer) History: Reports: None Dermatologic History: Reports: None - Infectious Disease History Infectious Disease History: Reports: Chicken Pox, Measles, Mumps - Past Surgical History Head Surgeries/Procedures: Reports: None HEENT Surgical History: Reports: Oral Surgery Cardiovascular Surgical History: Reports: None Respiratory Surgical History: Reports: None GI Surgical History: Reports: None Female Surgical History: Reports: Tubal Ligation Other Female Surgeries/Procedures: ovarian cystectomy Endocrine Surgical History: Reports: None Neurological Surgical History: Reports: None 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 Surgical History: Reports: None Dermatological Surgical History: Reports: None - SUBSTANCE USE Smoking Status *Q: Former Smoker (quit 3 years ago) Second Hand Smoke Exposure: No Recreational Drug Use History: No - HOME MEDS Home Medications: Home Meds Pantoprazole Sodium [Protonix] 40 mg PO DAILY 02/25/17 [History] Zonisamide [Zonegran] 100 mg PO DAILY 02/25/17 [History] carBAMazepine [Tegretol] 200 mg PO BID 02/25/17 [History] clonazePAM [Clonazepam] 2 mg PO TID 02/25/17 [History] Gabapentin [Neurontin] 800 mg PO TID 01/27/18 [History] Sertraline HCl [Zoloft] 100 mg PO BEDTIME 01/27/18 [History] Zonisamide [Zonegran] 300 mg PO BEDTIME 01/27/18 [History] Promethazine [Phenergan] 25 mg PO Q4H PRN #20 tab 01/29/18 [Rx] Multivitamin [Multivitamins] 1 tab PO DAILY 02/15/18 [History] - CURRENT (IN HOUSE) MEDS Current Meds: Current Medications Lactated Ringer's (Ringers, Lactated) 1,000 mls @ 125 mls/hr IV ASDIRECTED [facility] Last Admin: 02/15/18 09:56 Dose: 125 mls/hr Discontinued Medications Bupivacaine HCl (Sensorcaine-Mpf 0.5%) Confirm Administered Dose 30 ml .ROUTE .STK-MED ONE Stop: 02/15/18 07:26 Fentanyl (Sublimaze) Confirm Administered Dose 300 mcg .ROUTE .STK-MED ONE Stop: 02/15/18 09:00 Cefoxitin Sodium 2 gm/ Premix 50 mls @ 100 mls/hr IV ONETIME ONE Stop: 02/15/18 07:29 Lidocaine (Xylocaine-Mpf 2%) Confirm Administered Dose 10 ml .ROUTE .STK-MED ONE Stop: 02/15/18 08:59 Midazolam HCl (Versed 1 Mg/Ml) Confirm Administered Dose 2 mg .ROUTE .STK-MED ONE Stop: 02/15/18 09:00 Propofol (Diprivan 20 Ml) Confirm Administered Dose 400 mg .ROUTE .STK-MED ONE Stop: 02/15/18 09:00
[2018-02-15] MEDS ORDERED: fentaNYL 100 MCG/2 ML SDV ONE ×2 (10:42→10:59)
[2018-02-15] MEDS ORDERED: ceFAZolin 1 GM Vial ONE (10:56)
[2018-02-15] MEDS ORDERED: Labetalol 100 MG/20 ML MDV ONE (11:00)
[2018-02-15] MEDS ORDERED: Propofol 200 MG/20 ML SDV ONE (11:02)
[2018-02-15] MEDS ORDERED: Sugammadex Sodium 200 MG/2 ML VIAL ONE (11:10)
[2018-02-15] MEDS ORDERED: Morphine 10 MG/ML Syringe IVPUSH PRN (11:23)
[2018-02-15] MEDS ORDERED: Acetaminophen/HYDROcodone 325-5 MG Tab PO PRN (11:23)
--- NOTE | 2018-02-15 11:26 | PCM.OPNOTE ---
- General Post-Op/Procedure Note Date of Surgery/Procedure: 02/15/18 Operative Procedure(s): Laparoscopic cholecystectomy Pre Op Diagnosis: Symptomatic cholelithiasis Post-Op Diagnosis: Same Anesthesia Technique: General ET Tube (ASA II) Primary Surgeon: Akshat Dooley Outside Sales Executive: Edd Harkins Condition: Good Free Text/Narrative:: Intake & Output 02/14/18 02/15/18 02/15/18 19:59 03:59 11:59 Output Total 15 Balance -15 Dictation [id number] CPT CODE [id number]
[2018-02-15] MEDS ORDERED: Lactated Ringers 1,000 ML IV SCH (11:30)
[2018-02-15] MEDS: fentaNYL 100 MCG/2 ML SDV IVPUSH PRN ×2 (12:20→13:13)
--- NOTE | 2018-02-15 12:47 | PCM.POSTAN ---
POST ANESTHESIA ASSESSMENT - MENTAL STATUS Mental Status: Alert, Oriented - RESPIRATORY Respiratory Status: Respiratory Rate WNL, Airway Patent, O2 Saturation Stable - CARDIOVASCULAR CV Status: Pulse Rate WNL, Blood Pressure Stable - GASTROINTESTINAL GI Status: No Symptoms - PAIN Pain Score: 10 Free Text/Narrative:: patient reports 10/10 pain. Patient not crying, having an appropriate conversation with nurse - POST OP HYDRATION Hydration Status: Adequate & Stable
[2018-02-15] MEDS ORDERED: Promethazine 25 MG/ML SDV IM ONE (13:42)
--- NOTE | 2018-02-15 14:13 | PCM48HPAN ---
Post Anesthesia Note - EVALUATION WITHIN 48HRS OF ANESTHETIC Vital Signs in Normal Range: Yes Patient Participated in Evaluation: Yes Respiratory Function Stable: Yes Airway Patent: Yes Cardiovascular Function Stable: Yes Hydration Status Stable: Yes Pain Control Satisfactory: Yes Nausea and Vomiting Control Satisfactory: Yes Mental Status Recovered: Yes Resp Rate: 7 - COMMENTS/OBSERVATIONS Free Text/Narrative:: no anesthesia problems
[2018-02-15 16:21] VITALS: BP 98/68
--- NOTE | 2018-02-15 19:08 | OR ---
SURGEON: Akshat Dooley M.D. DATE OF PROCEDURE: 02/15/2018 OPERATION PERFORMED: Laparoscopic cholecystectomy. [employer] OPERATOR HELPER: Dr. Harkins, PGY-2 ANESTHESIA: General endotracheal. PREOPERATIVE DIAGNOSIS: Symptomatic cholelithiasis. POSTOPERATIVE DIAGNOSIS: Symptomatic cholelithiasis. ESTIMATED BLOOD LOSS: 20 mL. INTRAOPERATIVE FLUID REPLACEMENT: 1000 mL of crystalloid. DESCRIPTION OF PROCEDURE: The patient was taken to the operating room, placed on the operating table in the supine position. A time-out was called for appropriate identification of the patient and procedure. Thigh-high TEDs and sequential compression boots were placed. Following satisfactory attainment of general endotracheal anesthesia, a Freedman catheter was placed in the patient's urinary bladder. The abdomen was prepped with DuraPrep solution. Sterile drapes were applied. The skin just below the umbilicus was infiltrated with 0.5% Marcaine solution. The skin incision was then made and deepened through the subcutaneous tissue, obtaining hemostasis with the use of electrocautery. The Veress needle was introduced into the peritoneal cavity. The saline drop test was positive. Carbon dioxide pneumoperitoneum was established with the release set at 13 cm of water. Once we had a satisfactory pneumoperitoneum, 5 mm camera and port were placed through the infraumbilical incision. The patient was now positioned with her feet down and rolled to the left. Under camera vision, the subxiphoid, midclavicular and anterior axillary ports were placed. Each incision had preemptively been infiltrated with 0.5% Marcaine solution. The gallbladder was grasped and adhesions were taken down. The cholecystohepatic triangle was dissected free, identifying the cystic duct and an anterior and posterior cystic artery. Each structure was hemo-clipped and divided with the laparoscopic Metzenbaum scissors. Once that was accomplished, the gallbladder was dissected away from its bed using electrocautery. We did spill a small amount of bile, but no stones were spilled. All fluid was aspirated. Once the gallbladder was amputated, this was placed in an Endopouch and secured within the peritoneal cavity. The bed of the gallbladder was inspected for hemostasis and small bleeding sites were electrocoagulated. The gallbladder bed was then irrigated with 1% Ancef solution and all fluid aspirated. Surgicel was placed into the bed of the gallbladder. The right hemidiaphragm was then irrigated with 250 mL of saline containing 20 mL of 0.5% Marcaine solution and that solution was left in place. Under camera vision, the 12 mm trocar and Endopouch containing gallbladder were removed, followed by removal of both 5 mm midclavicular and anterior axillary ports. Finally, the infraumbilical camera and port were removed. The wounds were inspected for hemostasis. No bleeding was noted. The subxiphoid and infraumbilical incisions were closed in 2 layers, approximating the subcutaneous tissue with 3-0 Vicryl and the skin with subcuticular 4-0 Monocryl. The anterior, axillary, and midclavicular incisions were closed with subcuticular 4-0 Monocryl. All incisions were Steri-Stripped and dressed with sterile Tegaderm pads. Sponge, needle, and instrument counts were all correct. The patient tolerated the procedure well. The Freedman catheter was removed prior to emergence from anesthesia. Following emergence from anesthesia and extubation, the patient was taken to recovery room in stable condition. JANNA STARR /[id number]
== END 2018-02-15 16:00 | disposition home or self-care (01) ==
LOC: MW.SDS 09:25
PROVIDERS: ATTEND Surgery
DX: K81.1 Chronic cholecystitis (principal); K21.9 Gastro-esophageal reflux disease without esophagitis; F41.9 Anxiety disorder, unspecified; Z88.8 Allergy status to other drugs, medicaments and biological substances; Z79.899 Other long term (current) drug therapy; Z87.891 Personal history of nicotine dependence; Z88.1 Allergy status to other antibiotic agents; Z88.2 Allergy status to sulfonamides
CPT/HCPCS: 47562; 81025; 88304; A9270; C9399; J0690; J2250; J2270; J2550; J3010; J7120; 00790; J2704; J3490

== ENCOUNTER 2018-03-19 14:52 | Observation (INO) | payer MEDICARE, MEDICAID ==
--- NOTE | 2018-03-19 14:58 | EDM.PDOC ---
ED HPI GENERAL MEDICAL PROBLEM - General Chief Complaint: General Stated Complaint: PT FELL IN [facility] Time Seen by Provider: 03/19/18 14:54 - History of Present Illness INITIAL COMMENTS - FREE TEXT/NARRATIVE: HISTORY AND PHYSICAL: History of present illness: Patient 37-year-old female presents status post syncopal episode this occurred at [facility] there was no associated trauma patient does have a seizure disorders no witnessed seizure activity. Patient arrives via paramedics with complaints of generalized weakness. Review of systems: As per history of present illness and below otherwise all systems reviewed and negative. Past medical history: As per history of present illness and as reviewed below otherwise noncontributory. Surgical history: As per history of present illness and as reviewed below otherwise noncontributory. Social history: No reported history of drug or alcohol abuse. Family history: As per history of present illness and as reviewed below otherwise noncontributory. Physical exam: HEENT: Atraumatic, normocephalic, pupils reactive, negative for conjunctival pallor or scleral icterus, mucous membranes moist, throat clear, neck supple, nontender, trachea midline. Lungs: Clear to auscultation, breath sounds equal bilaterally, chest nontender. Heart: S1S2, regular, negative for clicks, rubs, or JVD. Abdomen: Soft, nondistended, nontender. Negative for masses or hepatosplenomegaly. Negative for costovertebral tenderness. Pelvis: Stable nontender. Genitourinary: Deferred. Rectal: Deferred. Extremities: Atraumatic, negative for cords or calf pain. Neurovascular unremarkable. Neuro: Awake, somnolent speech is somewhat slow and deliberate, oriented. Cranial nerves II through XII unremarkable. Cerebellum unremarkable. Motor and sensory unremarkable throughout. Exam nonfocal. Diagnostics: CBC CMP troponin PT/INR chest x-ray CT brain prolactin level UDS Therapeutics: IV O2 monitor Impression: #1 syncope #2 history of seizure disorder Definitive disposition and diagnosis as appropriate pending reevaluation and review of above. - Related Data Allergies Allergy/AdvReac Type Severity Reaction Status Date / Time meperidine [From Demerol] Allergy Hives Verified 03/19/18 14:59 methylprednisolone Allergy Nausea and Verified 03/19/18 14:59 [From Medrol] Vomiting nalbuphine [From Nubain] Allergy Nausea and Verified 03/19/18 14:59 Vomiting ondansetron Allergy Hives Verified 03/19/18 14:59 [From Zofran (as hydrochloride)] rizatriptan [From Maxalt] Allergy Rash Verified 03/19/18 14:59 sulfamethoxazole Allergy Itching Verified 03/19/18 14:59 [From Bactrim] sumatriptan [From Imitrex] Allergy Headache Verified 03/19/18 14:59 trimethoprim [From Bactrim] Allergy Itching Verified 03/19/18 14:59 Home Meds: Home Meds ClonazePAM [KlonoPIN] 03/19/18 [History] Gabapentin [Neurontin] 03/19/18 [History] Methocarbamol [Robaxin] 03/19/18 [History] Multivitamin [Multi-Vitamin Daily] 1 each PO DAILY 03/19/18 [History] Pantoprazole Sodium [Protonix] 03/19/18 [History] Promethazine [Phenergan] 03/19/18 [History] Sertraline HCl [Zoloft] 03/19/18 [History] Zonisamide [Zonegran] 03/19/18 [History] carBAMazepine [Carbatrol] 03/19/18 [History] Past Medical History HEENT History: Reports: None Other HEENT History: oral surgery, top and bottom dentures, wears glasses Cardiovascular History: Reports: None Respiratory History: Reports: None Gastrointestinal History: Reports: Cholelithiasis, GERD Genitourinary History: Reports: None [employer] History: Reports: 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 History: Reports: None Neurological History: Reports: Migraines, Other (See Below) Other Neuro History: Epilepsy Psychiatric History: Reports: Anxiety Endocrine/Metabolic History: Reports: Obesity/BMI 30+ Hematologic History: Reports: None Immunologic History: Reports: None Oncologic (Cancer) History: Reports: None Dermatologic History: Reports: None - Infectious Disease History Infectious Disease History: Reports: Chicken Pox, Measles, Mumps - Past Surgical History Head Surgeries/Procedures: Reports: None HEENT Surgical History: Reports: Oral Surgery Cardiovascular Surgical History: Reports: None Respiratory Surgical History: Reports: None GI Surgical History: Reports: None Female Surgical History: Reports: Tubal Ligation Other Female Surgeries/Procedures: ovarian cystectomy Endocrine Surgical History: Reports: None Neurological Surgical History: Reports: None 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 Surgical History: Reports: None Dermatological Surgical History: Reports: None Social & Family History - Family History Family Medical History: Noncontributory - Tobacco Use Smoking Status *Q: Former Smoker Years of Tobacco use: 10 Used Tobacco, but Quit: Yes Month/Year Tobacco Last Used: 2014 Second Hand Smoke Exposure: No - Caffeine Use Caffeine Use: Reports: Coffee, Soda, Tea - Recreational Drug Use Recreational Drug Use: No Drug Use in Last 12 Months: No ED ROS GENERAL - Review of Systems Review Of Systems: ROS reveals no pertinent complaints other than HPI. ED EXAM, GENERAL - Physical Exam Exam: See Below (See dictation) Course - Vital Signs Last Recorded V/S: Last Vital Signs Temp 36.2 C 03/19/18 14:59 Pulse 73 03/19/18 14:59 Resp 16 03/19/18 14:59 BP 126/86 03/19/18 14:59 Pulse Ox 98 03/19/18 14:59 - Orders/Labs/Meds Orders: Active Orders 24 hr Category Date Time Status Cardiac Monitoring [RC] . DIRECTED Care 03/19/18 15:00 Active EKG Documentation Completion [RC] STAT Care 03/19/18 15:01 Active Pulse Oximetry [RC] ASDIRECTED Care 03/19/18 15:00 Active Chest 1V Frontal [CR] Stat Exams 03/19/18 16:43 Ordered DRUG SCREEN, URINE [URCHEM] Stat Lab 03/19/18 16:25 Ordered UA W/MICROSCOPIC [URIN] Stat Lab 03/19/18 16:25 Ordered Labs: Laboratory Tests 03/19/18 03/19/18 03/19/18 Range/Units 15:11 15:11 15:11 WBC 5.87 (4.0-11.0) K/uL RBC 4.72 (4.30-5.90) M/uL Hgb 13.3 (12.0-16.0) g/dL Hct 39.3 (36.0-46.0) % MCV 83.3 (80.0-98.0) fL MCH 28.2 (27.0-32.0) pg MCHC 33.8 (31.0-37.0) g/dL RDW Std Deviation 45.6 (28.0-62.0) fl RDW Coeff of Pepe 15 (11.0-15.0) % Plt Count 375 (150-400) K/uL MPV 9.60 (7.40-12.00) fL Neut % (Auto) 48.6 (48.0-80.0) % Lymph % (Auto) 42.6 H (16.0-40.0) % [place] % (Auto) 7.8 (0.0-15.0) % Eos % (Auto) 0.7 (0.0-7.0) % Baso % (Auto) 0.3 (0.0-1.5) % Neut # (Auto) 2.9 (1.4-5.7) K/uL Lymph # (Auto) 2.5 H (0.6-2.4) K/uL [place] # (Auto) 0.5 (0.0-0.8) K/uL Eos # (Auto) 0.0 (0.0-0.7) K/uL Baso # (Auto) 0.0 (0.0-0.1) K/uL Nucleated RBC % 0.0 /100WBC Nucleated RBCs # 0 K/uL INR 1.07 Sodium 139 (136-145) mmol/L Potassium 3.2 L (3.5-5.1) mmol/L Chloride 104 (98-107) mmol/L Carbon Dioxide 22.1 (21.0-32.0) mmol/L BUN 9 (7.0-18.0) mg/dL Creatinine 0.9 (0.6-1.0) mg/dL Est Cr Clr Drug Dosing 61.47 mL/min Estimated GFR (MDRD) > 60.0 ml/min Glucose 98 (74-106) mg/dL Calcium 9.4 (8.5-10.1) mg/dL Total Bilirubin 0.2 (0.2-1.0) mg/dL AST 20 (15-37) IU/L ALT 25 (14-63) IU/L Alkaline Phosphatase 119 H (46-116) U/L Troponin I < 0.050 (0.000-0.056) ng/mL Total Protein 7.8 (6.4-8.2) g/dL Albumin 4.1 (3.4-5.0) g/dL Globulin 3.7 H (2.0-3.5) g/dL Albumin/Globulin Ratio 1.1 L (1.3-2.8) Prolactin 8 (0-27) ng/mL Urine Color Urine Appearance Urine pH (5.0-8.0) Ur Specific Blackey (1.001-1.035) Urine Protein (NEGATIVE) mg/dL Urine Glucose (UA) (NEGATIVE) mg/dL Urine Ketones (NEGATIVE) mg/dL Urine Occult Blood (NEGATIVE) Urine Nitrite (NEGATIVE) Urine Bilirubin (NEGATIVE) Urine Urobilinogen (<2.0) EU/dL Ur Leukocyte Esterase (NEGATIVE) Urine Opiates Screen (NEGATIVE) Ur Oxycodone Screen (NEGATIVE) Urine Methadone Screen (NEGATIVE) Ur Barbiturates Screen (NEGATIVE) Ur Phencyclidine Scrn (NEGATIVE) Ur Amphetamine Screen (NEGATIVE) U Methamphetamines Scrn (NEGATIVE) U Benzodiazepines Scrn (NEGATIVE) U Cocaine Metab Screen (NEGATIVE) U Marijuana (THC) Screen (NEGATIVE) 03/19/18 03/19/18 Range/Units 16:25 16:25 WBC (4.0-11.0) K/uL RBC (4.30-5.90) M/uL Hgb (12.0-16.0) g/dL Hct (36.0-46.0) % MCV (80.0-98.0) fL MCH (27.0-32.0) pg MCHC (31.0-37.0) g/dL RDW Std Deviation (28.0-62.0) fl RDW Coeff of Pepe (11.0-15.0) % Plt Count (150-400) K/uL MPV (7.40-12.00) fL Neut % (Auto) (48.0-80.0) % Lymph % (Auto) (16.0-40.0) % [place] % (Auto) (0.0-15.0) % Eos % (Auto) (0.0-7.0) % Baso % (Auto) (0.0-1.5) % Neut # (Auto) (1.4-5.7) K/uL Lymph # (Auto) (0.6-2.4) K/uL [place] # (Auto) (0.0-0.8) K/uL Eos # (Auto) (0.0-0.7) K/uL Baso # (Auto) (0.0-0.1) K/uL Nucleated RBC % /100WBC Nucleated RBCs # K/uL INR Sodium (136-145) mmol/L Potassium (3.5-5.1) mmol/L Chloride (98-107) mmol/L Carbon Dioxide (21.0-32.0) mmol/L BUN (7.0-18.0) mg/dL Creatinine (0.6-1.0) mg/dL Est Cr Clr Drug Dosing mL/min Estimated GFR (MDRD) ml/min Glucose (74-106) mg/dL Calcium (8.5-10.1) mg/dL Total Bilirubin (0.2-1.0) mg/dL AST (15-37) IU/L ALT (14-63) IU/L Alkaline Phosphatase (46-116) U/L Troponin I (0.000-0.056) ng/mL Total Protein (6.4-8.2) g/dL Albumin (3.4-5.0) g/dL Globulin (2.0-3.5) g/dL Albumin/Globulin Ratio (1.3-2.8) Prolactin (0-27) ng/mL Urine Color YELLOW Urine Appearance CLEAR Urine pH 6.5 (5.0-8.0) Ur Specific Blackey <= 1.005 (1.001-1.035) Urine Protein NEGATIVE (NEGATIVE) mg/dL Urine Glucose (UA) NEGATIVE (NEGATIVE) mg/dL Urine Ketones NEGATIVE (NEGATIVE) mg/dL Urine Occult Blood NEGATIVE (NEGATIVE) Urine Nitrite NEGATIVE (NEGATIVE) Urine Bilirubin NEGATIVE (NEGATIVE) Urine Urobilinogen 0.2 (<2.0) EU/dL Ur Leukocyte Esterase TRACE (NEGATIVE) Urine Opiates Screen NEGATIVE (NEGATIVE) Ur Oxycodone Screen NEGATIVE (NEGATIVE) Urine Methadone Screen POSITIVE (NEGATIVE) Ur Barbiturates Screen NEGATIVE (NEGATIVE) Ur Phencyclidine Scrn NEGATIVE (NEGATIVE) Ur Amphetamine Screen NEGATIVE (NEGATIVE) U Methamphetamines Scrn NEGATIVE (NEGATIVE) U Benzodiazepines Scrn POSITIVE (NEGATIVE) U Cocaine Metab Screen NEGATIVE (NEGATIVE) U Marijuana (THC) Screen NEGATIVE (NEGATIVE) Meds: Medications Discontinued Medications Generic Name Dose Route Start Last Admin Trade Name Freq PRN Reason Stop Dose Admin Naloxone HCl 0.4 mg 03/19/18 15:00 03/19/18 15:05 Narcan IVPUSH 03/19/18 15:01 0.4 mg ONETIME ONE Administration Departure - Departure Time of Disposition: 16:53 Disposition: Refer to Observation Condition: Good Clinical Impression: Syncope, History of seizure disorder - Discharge Information Forms: ED Department Discharge - My Orders Last 24 Hours: My Active Orders 03/19/18 15:00 Cardiac Monitoring [RC] . DIRECTED Pulse Oximetry [RC] ASDIRECTED 03/19/18 15:01 EKG Documentation Completion [RC] STAT 03/19/18 16:25 DRUG SCREEN, URINE [URCHEM] Stat UA W/MICROSCOPIC [URIN] Stat 03/19/18 16:43 Chest 1V Frontal [CR] Stat - Assessment/Plan Last 24 Hours: My Active Orders 03/19/18 15:00 Cardiac Monitoring [RC] . DIRECTED Pulse Oximetry [RC] ASDIRECTED 03/19/18 15:01 EKG Documentation Completion [RC] STAT 03/19/18 16:25 DRUG SCREEN, URINE [URCHEM] Stat UA W/MICROSCOPIC [URIN] Stat 03/19/18 16:43 Chest 1V Frontal [CR] Stat
[2018-03-19] MEDS ORDERED: Naloxone 0.4 MG/ML Syringe IVPUSH ONE (15:00)
[2018-03-19 15:47] LABS: CHLORIDE,CL 104 mmol/L (98-107); SODIUM,NA 139 mmol/L (136-145)
--- NOTE | 2018-03-19 16:11 | CT ---
EXAMINATION: Non contrast CT head. Coronal and sagittal reformats. HISTORY: Altered mental status FINDINGS: No evidence of intra or extra axial hemorrhage, mass, midline shift, hydrocephalus or edema. No hypoattenuation changes in the major vascular territories to suggest acute infarct. No abnormal intracranial calcifications are detected. No evidence of substantial vascular calcificat ions. Paranasal sinuses and mastoid air cells are well aerated without substantial findings. The orbits an d globes are symmetric. Pituitary fossa appears unremarkable. Calvarium is intact. No evidence of skull fracture. IMPRESSION: No acute intracranial findings.
[2018-03-19] MEDS ORDERED: Ketorolac 30 MG/ML SDV IVPUSH ONE (16:54)
--- NOTE | 2018-03-19 17:36 | PCM.HP ---
H&P History of Present Illness - General Date of Service: 03/19/18 Admit Problem/Dx: Admission Diagnosis/Problem Admission Diagnosis/Problem Syncope Source of Information: Patient History Limitations: Reports: No Limitations - History of Present Illness Initial Comments - Free Text/Narative: 37-year-old female with a history of migraines, epilepsy and anxiety that is being admitted after having a syncopal episode today. The episode was witnessed by her mother. Her mother is not present to contribute to the history. The patient states that she was feeling unwell this morning and went to [facility] with her mother and the next thing she knew she was lying on the ground looking up and did not know how she got there. She states that her seizure disorder has been well controlled with her current medications. She follows with a neurologist in [place] for her epilepsy. She has not had a seizure in quite a while. She did not have a migraine this morning prior to the syncopal episode. Patient notes that she has not eaten or drank well over the past 3 weeks since having her gallbladder removed by Dr. Dooley. She reports nauseousness in the ER today. She also complains of a headache and dizziness. Patient has no cardiac history. She denies any chest pain, palpitations, shortness of breath, wheezing, cough, abdominal pain, fever. The patient does take a number of sedating medications including Robaxin, Zonegran, Klonopin, gabapentin and Tegretol. ER course: CBC, CMP, UA, initial troponin, head CT and chest x-ray were all unremarkable. Urine screen was positive for benzodiazepines which she is prescribed. It was also positive for methadone. Patient was confronted with this finding and she states that she has never taken methadone and does not even know what methadone is. In the ER, the patient was given a dose of Narcan for possible opioid overdose and also Toradol for pain. head Pain Score (Numeric/FACES): 7 - Related Data Allergies/Adverse Reactions: Allergies Allergy/AdvReac Type Severity Reaction Status Date / Time meperidine [From Demerol] Allergy Hives Verified 03/19/18 14:59 methylprednisolone Allergy Nausea and Verified 03/19/18 14:59 [From Medrol] Vomiting nalbuphine [From Nubain] Allergy Nausea and Verified 03/19/18 14:59 Vomiting ondansetron Allergy Hives Verified 03/19/18 14:59 [From Zofran (as hydrochloride)] rizatriptan [From Maxalt] Allergy Rash Verified 03/19/18 14:59 sulfamethoxazole Allergy Itching Verified 03/19/18 14:59 [From Bactrim] sumatriptan [From Imitrex] Allergy Headache Verified 03/19/18 14:59 trimethoprim [From Bactrim] Allergy Itching Verified 03/19/18 14:59 Home Medications: Home Meds ClonazePAM [KlonoPIN] 03/19/18 [History] Gabapentin [Neurontin] 03/19/18 [History] Methocarbamol [Robaxin] 03/19/18 [History] Multivitamin [Multi-Vitamin Daily] 1 each PO DAILY 03/19/18 [History] Pantoprazole Sodium [Protonix] 03/19/18 [History] Promethazine [Phenergan] 03/19/18 [History] Sertraline HCl [Zoloft] 03/19/18 [History] Zonisamide [Zonegran] 03/19/18 [History] carBAMazepine [Carbatrol] 03/19/18 [History] Past Medical History HEENT History: Reports: None Other HEENT History: oral surgery, top and bottom dentures, wears glasses Cardiovascular History: Reports: None Respiratory History: Reports: None Gastrointestinal History: Reports: Cholelithiasis, GERD Genitourinary History: Reports: None [employer] History: Reports: 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 History: Reports: None Neurological History: Reports: Migraines, Other (See Below) Other Neuro History: Epilepsy Psychiatric History: Reports: Anxiety Endocrine/Metabolic History: Reports: Obesity/BMI 30+ Hematologic History: Reports: None Immunologic History: Reports: None Oncologic (Cancer) History: Reports: None Dermatologic History: Reports: None - Infectious Disease History Infectious Disease History: Reports: Chicken Pox, Measles, Mumps - Past Surgical History Head Surgeries/Procedures: Reports: None HEENT Surgical History: Reports: Oral Surgery Cardiovascular Surgical History: Reports: None Respiratory Surgical History: Reports: None GI Surgical History: Reports: None Female Surgical History: Reports: Tubal Ligation Other Female Surgeries/Procedures: ovarian cystectomy Endocrine Surgical History: Reports: None Neurological Surgical History: Reports: None 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 Surgical History: Reports: None Dermatological Surgical History: Reports: None Social & Family History - Family History Family Medical History: Noncontributory - Tobacco Use Smoking Status *Q: Former Smoker Years of Tobacco use: 10 Used Tobacco, but Quit: Yes Month/Year Tobacco Last Used: 2014 Second Hand Smoke Exposure: No - Caffeine Use Caffeine Use: Reports: Coffee, Soda, Tea - Recreational Drug Use Recreational Drug Use: No Drug Use in Last 12 Months: No H&P Review of Systems - Review of Systems: Review Of Systems: See Below General: Reports: Weakness, Fatigue HEENT: Reports: Headaches Pulmonary: Reports: No Symptoms Cardiovascular: Reports: Syncope Gastrointestinal: Reports: Nausea Genitourinary: Reports: No Symptoms 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: Reports: Other (Generalized pain) Skin: Reports: No Symptoms Psychiatric: Reports: No Symptoms Neurological: Reports: Syncope, Other (Slow speech) Hematologic/Lymphatic: Reports: No Symptoms Immunologic: Reports: No Symptoms Exam - Exam Exam: See Below - Vital Signs Vital Signs: Last Vital Signs Temp 97.2 F 03/19/18 14:59 Pulse 73 03/19/18 14:59 Resp 16 03/19/18 14:59 BP 126/86 03/19/18 14:59 Pulse Ox 98 03/19/18 14:59 Weight: 175 lb - Exam General: Alert, Oriented, Cooperative HEENT: EOMI, Hearing Intact, Mucosa Moist & [place], Posterior Pharynx Clear, Other (Left conjunctiva is slightly erythematous. Patient states this is from vomiting.) Neck: Supple, Trachea Midline, 2 Lungs: Clear to Auscultation, Normal Respiratory Effort Cardiovascular: Regular Rate, Regular Rhythm GI/Abdominal Exam: Normal Bowel Sounds, Soft, Non-Tender, No Organomegaly, No Distention, No Abnormal Bruit, No Mass, Pelvis Stable Extremities: Normal Inspection, Normal Range of Motion, Non-Tender, No Pedal Edema, Normal Capillary Refill Peripheral Pulses: 2+: Radial (L), Radial (R), Posterior Tibial (L), Posterior Tibial (R) Skin: Warm, Dry, Intact Neurological: Cranial Nerves Intact Neuro Extensive - Mental Status: Alert, Oriented x3, Normal Mood/Affect, Normal Cognition Neuro Extensive - Motor, Sensory, Reflexes: CN II-XII Intact Psychiatric: Alert, Normal Affect, Normal Mood - Patient Data Lab Results Last 24 hrs: Laboratory Results - last 24 hr 05/04/18 05/04/18 05/04/18 Range/Units 15:11 15:11 15:11 WBC 5.87 (4.0-11.0) K/uL RBC 4.72 (4.30-5.90) M/uL Hgb 13.3 (12.0-16.0) g/dL Hct 39.3 (36.0-46.0) % MCV 83.3 (80.0-98.0) fL MCH 28.2 (27.0-32.0) pg MCHC 33.8 (31.0-37.0) g/dL RDW Std Deviation 45.6 (28.0-62.0) fl RDW Coeff of Pepe 15 (11.0-15.0) % Plt Count 375 (150-400) K/uL MPV 9.60 (7.40-12.00) fL Neut % (Auto) 48.6 (48.0-80.0) % Lymph % (Auto) 42.6 H (16.0-40.0) % Todd % (Auto) 7.8 (0.0-15.0) % Eos % (Auto) 0.7 (0.0-7.0) % Baso % (Auto) 0.3 (0.0-1.5) % Neut # (Auto) 2.9 (1.4-5.7) K/uL Lymph # (Auto) 2.5 H (0.6-2.4) K/uL Todd # (Auto) 0.5 (0.0-0.8) K/uL Eos # (Auto) 0.0 (0.0-0.7) K/uL Baso # (Auto) 0.0 (0.0-0.1) K/uL Nucleated RBC % 0.0 /100WBC Nucleated RBCs # 0 K/uL INR 1.07 Sodium 139 (136-145) mmol/L Potassium 3.2 L (3.5-5.1) mmol/L Chloride 104 (98-107) mmol/L Carbon Dioxide 22.1 (21.0-32.0) mmol/L BUN 9 (7.0-18.0) mg/dL Creatinine 0.9 (0.6-1.0) mg/dL Est Cr Clr Drug Dosing 61.47 mL/min Estimated GFR (MDRD) > 60.0 ml/min Glucose 98 (74-106) mg/dL Calcium 9.4 (8.5-10.1) mg/dL Total Bilirubin 0.2 (0.2-1.0) mg/dL AST 20 (15-37) IU/L ALT 25 (14-63) IU/L Alkaline Phosphatase 119 H (46-116) U/L Troponin I < 0.050 (0.000-0.056) ng/mL Total Protein 7.8 (6.4-8.2) g/dL Albumin 4.1 (3.4-5.0) g/dL Globulin 3.7 H (2.0-3.5) g/dL Albumin/Globulin Ratio 1.1 L (1.3-2.8) Prolactin 8 (0-27) ng/mL Urine Color Urine Appearance Urine pH (5.0-8.0) Ur Specific Sterling (1.001-1.035) Urine Protein (NEGATIVE) mg/dL Urine Glucose (UA) (NEGATIVE) mg/dL Urine Ketones (NEGATIVE) mg/dL Urine Occult Blood (NEGATIVE) Urine Nitrite (NEGATIVE) Urine Bilirubin (NEGATIVE) Urine Urobilinogen (<2.0) EU/dL Ur Leukocyte Esterase (NEGATIVE) Urine RBC (0-2/HPF) Urine WBC (0-5/HPF) Ur Epithelial Cells (NONE-FEW) Urine Bacteria (NEGATIVE) Urine Opiates Screen (NEGATIVE) Ur Oxycodone Screen (NEGATIVE) Urine Methadone Screen (NEGATIVE) Ur Barbiturates Screen (NEGATIVE) Ur Phencyclidine Scrn (NEGATIVE) Ur Amphetamine Screen (NEGATIVE) U Methamphetamines Scrn (NEGATIVE) U Benzodiazepines Scrn (NEGATIVE) U Cocaine Metab Screen (NEGATIVE) U Marijuana (THC) Screen (NEGATIVE) 03/19/18 03/19/18 Range/Units 16:25 16:25 WBC (4.0-11.0) K/uL RBC (4.30-5.90) M/uL Hgb (12.0-16.0) g/dL Hct (36.0-46.0) % MCV (80.0-98.0) fL MCH (27.0-32.0) pg MCHC (31.0-37.0) g/dL RDW Std Deviation (28.0-62.0) fl RDW Coeff of Pepe (11.0-15.0) % Plt Count (150-400) K/uL MPV (7.40-12.00) fL Neut % (Auto) (48.0-80.0) % Lymph % (Auto) (16.0-40.0) % Todd % (Auto) (0.0-15.0) % Eos % (Auto) (0.0-7.0) % Baso % (Auto) (0.0-1.5) % Neut # (Auto) (1.4-5.7) K/uL Lymph # (Auto) (0.6-2.4) K/uL Todd # (Auto) (0.0-0.8) K/uL Eos # (Auto) (0.0-0.7) K/uL Baso # (Auto) (0.0-0.1) K/uL Nucleated RBC % /100WBC Nucleated RBCs # K/uL INR Sodium (136-145) mmol/L Potassium (3.5-5.1) mmol/L Chloride (98-107) mmol/L Carbon Dioxide (21.0-32.0) mmol/L BUN (7.0-18.0) mg/dL Creatinine (0.6-1.0) mg/dL Est Cr Clr Drug Dosing mL/min Estimated GFR (MDRD) ml/min Glucose (74-106) mg/dL Calcium (8.5-10.1) mg/dL Total Bilirubin (0.2-1.0) mg/dL AST (15-37) IU/L ALT (14-63) IU/L Alkaline Phosphatase (46-116) U/L Troponin I (0.000-0.056) ng/mL Total Protein (6.4-8.2) g/dL Albumin (3.4-5.0) g/dL Globulin (2.0-3.5) g/dL Albumin/Globulin Ratio (1.3-2.8) Prolactin (0-27) ng/mL Urine Color YELLOW Urine Appearance CLEAR Urine pH 6.5 (5.0-8.0) Ur Specific Sterling <= 1.005 (1.001-1.035) Urine Protein NEGATIVE (NEGATIVE) mg/dL Urine Glucose (UA) NEGATIVE (NEGATIVE) mg/dL Urine Ketones NEGATIVE (NEGATIVE) mg/dL Urine Occult Blood NEGATIVE (NEGATIVE) Urine Nitrite NEGATIVE (NEGATIVE) Urine Bilirubin NEGATIVE (NEGATIVE) Urine Urobilinogen 0.2 (<2.0) EU/dL Ur Leukocyte Esterase TRACE (NEGATIVE) Urine RBC 0-1 (0-2/HPF) Urine WBC 0-1 (0-5/HPF) Ur Epithelial Cells RARE (NONE-FEW) Urine Bacteria RARE (NEGATIVE) Urine Opiates Screen NEGATIVE (NEGATIVE) Ur Oxycodone Screen NEGATIVE (NEGATIVE) Urine Methadone Screen POSITIVE (NEGATIVE) Ur Barbiturates Screen NEGATIVE (NEGATIVE) Ur Phencyclidine Scrn NEGATIVE (NEGATIVE) Ur Amphetamine Screen NEGATIVE (NEGATIVE) U Methamphetamines Scrn NEGATIVE (NEGATIVE) U Benzodiazepines Scrn POSITIVE (NEGATIVE) U Cocaine Metab Screen NEGATIVE (NEGATIVE) U Marijuana (THC) Screen NEGATIVE (NEGATIVE) Result Diagrams: 03/19/18 15:11 03/19/18 15:11 - Problem List (1) Syncope SNOMED Code(s): 681555232 ICD Code: R55 - SYNCOPE AND COLLAPSE Status: Acute Current Visit: Yes (2) History of seizure disorder SNOMED Code(s): 141697203 ICD Code: Z86.69 - PERSONAL HISTORY OF DIS OF THE NERVOUS SYS AND SENSE ORGANS Status: Acute Current Visit: Yes Problem List Initiated/Reviewed/Updated: Yes Orders Last 24hrs: Active Orders 24 hr Category Date Time Status Patient Status [ADT] Stat ADT 03/19/18 16:54 Active Cardiac Monitoring [RC] . DIRECTED Care 03/19/18 15:00 Active EKG Documentation Completion [RC] STAT Care 03/19/18 15:01 Active Pulse Oximetry [RC] ASDIRECTED Care 03/19/18 15:00 Active Chest 1V Frontal [CR] Stat Exams 03/19/18 16:43 Taken DRUG SCREEN, URINE [URCHEM] Stat Lab 03/19/18 16:25 Ordered UA W/MICROSCOPIC [URIN] Stat Lab 03/19/18 16:25 Ordered Assessment/Plan Comment:: 37-year-old female admitted with syncope. #1. Syncope: -Workup in the ER has been essentially unremarkable. Vital signs are normal. -We will get orthostatic vital signs. -Patient will be placed on telemetry. -Patient will be given IV fluids secondary to stating she hasn't eaten or drank much over the past 3 weeks since having her gallbladder taken out. #2. Positive urine drug screen: -Urine drug screen was positive for benzodiazepines which she is prescribed. -Drug screen also positive for methadone. Patient denies ever taking methadone and does not know how this showed up in her urine. Dr. Oconnell, ER physician, printed off the patient's pharmacy records and she has filled multiple prescriptions for narcotics here in [place]. She states that she does not normally take narcotics at home. I looked the patient up on the [place] drug monitoring program and she has had 2 prescriptions filled for [place] on February 15 and February 19 both prescribed by the same provider. She also had a prescription filled on February 05 for [place]. She's also gotten prescriptions filled for narcotics on February 03, January 29, January 20. These were all prescriptions for [place]. 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 -Patient will not be prescribed narcotics during admission as these can be sedating and she just suffered a syncopal episode. DVT prophylaxis: SCDs and heparin Disposition: Tomorrow if workup is negative.
[2018-03-19] MEDS ORDERED: Sodium Chloride 0.9% 2.5 ML Syringe FLUSH PRN (17:46)
[2018-03-19] MEDS ORDERED: Potassium Chloride 10% 20 MEQ/15 ML Soln 30 ML UD Cup PO ONE (17:46)
[2018-03-19] MEDS ORDERED: Sodium Chloride 0.9% 10 ML Syringe FLUSH PRN (17:46)
[2018-03-19] MEDS ORDERED: Acetaminophen 325 MG Tab PO PRN (17:46)
[2018-03-19] MEDS ORDERED: Albuterol/Ipratropium 3.0-0.5 MG/3 ML Neb Soln NEB PRN (17:46)
[2018-03-19] MEDS ORDERED: Promethazine 25 MG Tab PO PRN ×2 (17:52→23:00)
[2018-03-19] MEDS ORDERED: Sodium Chloride 0.9% 1,000 ML IV SCH (18:00)
[2018-03-19] MEDS: Heparin Sodium 5,000 Units/ML Vial SUBCUT SCH (18:56)
[2018-03-19] MEDS ORDERED: Scopolamine 1.5 MG Transdermal Patch TRDERM SCH (20:00)
[2018-03-19] MEDS ORDERED: Pantoprazole 40 MG Vial IVPUSH SCH (20:00)
[2018-03-19] MEDS: Gabapentin 800 MG Tab PO SCH (22:05)
[2018-03-19] MEDS: ClonazePAM 1 MG Tab PO SCH (22:05)
[2018-03-20] MEDS: ClonazePAM 1 MG Tab PO SCH ×2 (05:49→14:46)
[2018-03-20] MEDS: Gabapentin 800 MG Tab PO SCH ×2 (05:49→14:46)
[2018-03-20] MEDS: Heparin Sodium 5,000 Units/ML Vial SUBCUT SCH (05:56)
[2018-03-20 06:34] LABS: CHLORIDE,CL 110 mmol/L (98-107); SODIUM,NA 142 mmol/L (136-145)
[2018-03-20] MEDS ORDERED: ZONISAMIDE 300 MG PO SCH (09:00)
[2018-03-20] MEDS ORDERED: carBAMazepine 100 MG Cap.ER PO SCH ×2 (09:00→12:00)
[2018-03-20] MEDS ORDERED: Multivitamin Tab PO SCH (09:00)
[2018-03-20] MEDS ORDERED: Sertraline 100 MG Tab PO SCH (09:00)
--- NOTE | 2018-03-20 13:27 | PCM.DCSUM1 ---
Discharge Summary - Discharge Data Discharge Date: 03/20/18 Discharge Disposition: Home, Self-Care 01 Condition: Stable - Patient Summary/Data Hospital Course: 37-year-old female with a history of migraines, epilepsy and anxiety that is being admitted after having a syncopal at [facility]. Patient reports she has had nausea since her cholecystectomy last month.CBC, CMP, UA, initial troponin, head CT, EKG, and chest x-ray were all unremarkable. Urine screen was positive for benzodiazepines which she is prescribed. It was also positive for methadone. She was given IV fluids and monitored overnight on telemetry. She had no events or return of her symptoms. She is discharged home today - Patient Instructions Diet: Regular Diet as Tolerated - Discharge Plan Home Medications: Home Meds Gabapentin [Neurontin] 800 mg PO TID 03/19/18 [History] Methocarbamol [Robaxin-750] 1 tab PO Q6H PRN 03/19/18 [History] Multivitamin [Multi-Vitamin Daily] 1 each PO DAILY 03/19/18 [History] Pantoprazole Sodium [Protonix] 1 tab PO DAILY 03/19/18 [History] Promethazine [Phenergan] 1 tab PO Q6H PRN 03/19/18 [History] Sertraline [Zoloft] 1 tab PO DAILY 03/19/18 [History] Zonisamide [Zonegran] 300 mg PO DAILY 03/19/18 [History] Zonisamide [Zonegran] 900 mg PO DAILY 03/19/18 [History] carBAMazepine [Carbamazepine ER] 200 mg PO DAILY 03/19/18 [History] carBAMazepine [carBAMazepine ER] 1 tab PO ASDIRECTED 03/19/18 [History] clonazePAM [Klonopin] 1 tab PO TID 03/19/18 [History] Patient Handouts: Near-Syncope, [id number] Referrals: Marcos Mcneil [Primary Care Provider] - (Please call [facility] on Thursday at [phone] to make a hospital follow-up.) - Patient Data Vitals - Most Recent: Last Vital Signs Temp 36.0 C 03/20/18 08:00 Pulse 69 03/20/18 08:00 Resp 16 03/20/18 08:00 BP 107/68 03/20/18 08:00 Pulse Ox 97 03/20/18 08:00 Weight - Most Recent: 74.389 kg I&O - Last 24 hours: Intake & Output 03/19/18 03/20/18 03/20/18 22:59 06:59 14:59 Intake Total 794 Output Total 500 Balance 294 Lab Results - Last 24 hrs: Laboratory Results - last 24 hr 03/19/18 03/19/18 03/19/18 Range/Units 15:11 15:11 15:11 WBC 5.87 (4.0-11.0) K/uL RBC 4.72 (4.30-5.90) M/uL Hgb 13.3 (12.0-16.0) g/dL Hct 39.3 (36.0-46.0) % MCV 83.3 (80.0-98.0) fL MCH 28.2 (27.0-32.0) pg MCHC 33.8 (31.0-37.0) g/dL RDW Std Deviation 45.6 (28.0-62.0) fl RDW Coeff of Pepe 15 (11.0-15.0) % Plt Count 375 (150-400) K/uL MPV 9.60 (7.40-12.00) fL Neut % (Auto) 48.6 (48.0-80.0) % Lymph % (Auto) 42.6 H (16.0-40.0) % [place] % (Auto) 7.8 (0.0-15.0) % Eos % (Auto) 0.7 (0.0-7.0) % Baso % (Auto) 0.3 (0.0-1.5) % Neut # (Auto) 2.9 (1.4-5.7) K/uL Lymph # (Auto) 2.5 H (0.6-2.4) K/uL [place] # (Auto) 0.5 (0.0-0.8) K/uL Eos # (Auto) 0.0 (0.0-0.7) K/uL Baso # (Auto) 0.0 (0.0-0.1) K/uL Nucleated RBC % 0.0 /100WBC Nucleated RBCs # 0 K/uL INR 1.07 Sodium 139 (136-145) mmol/L Potassium 3.2 L (3.5-5.1) mmol/L Chloride 104 (98-107) mmol/L Carbon Dioxide 22.1 (21.0-32.0) mmol/L BUN 9 (7.0-18.0) mg/dL Creatinine 0.9 (0.6-1.0) mg/dL Est Cr Clr Drug Dosing 61.47 mL/min Estimated GFR (MDRD) > 60.0 ml/min Glucose 98 (74-106) mg/dL POC Glucose (60-110) mg/dL Calcium 9.4 (8.5-10.1) mg/dL Magnesium (1.5-2.0) mg/dL Total Bilirubin 0.2 (0.2-1.0) mg/dL AST 20 (15-37) IU/L ALT 25 (14-63) IU/L Alkaline Phosphatase 119 H (46-116) U/L Troponin I < 0.050 (0.000-0.056) ng/mL Total Protein 7.8 (6.4-8.2) g/dL Albumin 4.1 (3.4-5.0) g/dL Globulin 3.7 H (2.0-3.5) g/dL Albumin/Globulin Ratio 1.1 L (1.3-2.8) Prolactin 8 (0-27) ng/mL Urine Color Urine Appearance Urine pH (5.0-8.0) Ur Specific [place]and[place] (1.001-1.035) Urine Protein (NEGATIVE) mg/dL Urine Glucose (UA) (NEGATIVE) mg/dL Urine Ketones (NEGATIVE) mg/dL Urine Occult Blood (NEGATIVE) Urine Nitrite (NEGATIVE) Urine Bilirubin (NEGATIVE) Urine Urobilinogen (<2.0) EU/dL Ur Leukocyte Esterase (NEGATIVE) Urine RBC (0-2/HPF) Urine WBC (0-5/HPF) Ur Epithelial Cells (NONE-FEW) Urine Bacteria (NEGATIVE) Urine Opiates Screen (NEGATIVE) Ur Oxycodone Screen (NEGATIVE) Urine Methadone Screen (NEGATIVE) Ur Barbiturates Screen (NEGATIVE) Ur Phencyclidine Scrn (NEGATIVE) Ur Amphetamine Screen (NEGATIVE) U Methamphetamines Scrn (NEGATIVE) U Benzodiazepines Scrn (NEGATIVE) U Cocaine Metab Screen (NEGATIVE) U Marijuana (THC) Screen (NEGATIVE) 05/04/18 05/04/18 05/04/18 Range/Units 15:11 16:25 16:25 WBC (4.0-11.0) K/uL RBC (4.30-5.90) M/uL Hgb (12.0-16.0) g/dL Hct (36.0-46.0) % MCV (80.0-98.0) fL MCH (27.0-32.0) pg MCHC (31.0-37.0) g/dL RDW Std Deviation (28.0-62.0) fl RDW Coeff of Pepe (11.0-15.0) % Plt Count (150-400) K/uL MPV (7.40-12.00) fL Neut % (Auto) (48.0-80.0) % Lymph % (Auto) (16.0-40.0) % [place] % (Auto) (0.0-15.0) % Eos % (Auto) (0.0-7.0) % Baso % (Auto) (0.0-1.5) % Neut # (Auto) (1.4-5.7) K/uL Lymph # (Auto) (0.6-2.4) K/uL [place] # (Auto) (0.0-0.8) K/uL Eos # (Auto) (0.0-0.7) K/uL Baso # (Auto) (0.0-0.1) K/uL Nucleated RBC % /100WBC Nucleated RBCs # K/uL INR Sodium (136-145) mmol/L Potassium (3.5-5.1) mmol/L Chloride (98-107) mmol/L Carbon Dioxide (21.0-32.0) mmol/L BUN (7.0-18.0) mg/dL Creatinine (0.6-1.0) mg/dL Est Cr Clr Drug Dosing mL/min Estimated GFR (MDRD) ml/min Glucose (74-106) mg/dL POC Glucose (60-110) mg/dL Calcium (8.5-10.1) mg/dL Magnesium 2.2 H (1.5-2.0) mg/dL Total Bilirubin (0.2-1.0) mg/dL AST (15-37) IU/L ALT (14-63) IU/L Alkaline Phosphatase (46-116) U/L Troponin I (0.000-0.056) ng/mL Total Protein (6.4-8.2) g/dL Albumin (3.4-5.0) g/dL Globulin (2.0-3.5) g/dL Albumin/Globulin Ratio (1.3-2.8) Prolactin (0-27) ng/mL Urine Color YELLOW Urine Appearance CLEAR Urine pH 6.5 (5.0-8.0) Ur Specific Vandiver <= 1.005 (1.001-1.035) Urine Protein NEGATIVE (NEGATIVE) mg/dL Urine Glucose (UA) NEGATIVE (NEGATIVE) mg/dL Urine Ketones NEGATIVE (NEGATIVE) mg/dL Urine Occult Blood NEGATIVE (NEGATIVE) Urine Nitrite NEGATIVE (NEGATIVE) Urine Bilirubin NEGATIVE (NEGATIVE) Urine Urobilinogen 0.2 (<2.0) EU/dL Ur Leukocyte Esterase TRACE (NEGATIVE) Urine RBC 0-1 (0-2/HPF) Urine WBC 0-1 (0-5/HPF) Ur Epithelial Cells RARE (NONE-FEW) Urine Bacteria RARE (NEGATIVE) Urine Opiates Screen NEGATIVE (NEGATIVE) Ur Oxycodone Screen NEGATIVE (NEGATIVE) Urine Methadone Screen POSITIVE (NEGATIVE) Ur Barbiturates Screen NEGATIVE (NEGATIVE) Ur Phencyclidine Scrn NEGATIVE (NEGATIVE) Ur Amphetamine Screen NEGATIVE (NEGATIVE) U Methamphetamines Scrn NEGATIVE (NEGATIVE) U Benzodiazepines Scrn POSITIVE (NEGATIVE) U Cocaine Metab Screen NEGATIVE (NEGATIVE) U Marijuana (THC) Screen NEGATIVE (NEGATIVE) 03/19/18 03/20/18 03/20/18 Range/Units 23:58 05:47 05:47 WBC 5.11 (4.0-11.0) K/uL RBC 4.27 L (4.30-5.90) M/uL Hgb 11.9 L (12.0-16.0) g/dL Hct 35.8 L (36.0-46.0) % MCV 83.8 (80.0-98.0) fL MCH 27.9 (27.0-32.0) pg MCHC 33.2 (31.0-37.0) g/dL RDW Std Deviation 47.0 (28.0-62.0) fl RDW Coeff of Pepe 15 (11.0-15.0) % Plt Count 339 (150-400) K/uL MPV 9.70 (7.40-12.00) fL Neut % (Auto) 25.1 L (48.0-80.0) % Lymph % (Auto) 65.9 H (16.0-40.0) % [place] % (Auto) 7.8 (0.0-15.0) % Eos % (Auto) 0.8 (0.0-7.0) % Baso % (Auto) 0.4 (0.0-1.5) % Neut # (Auto) 1.3 L (1.4-5.7) K/uL Lymph # (Auto) 3.4 H (0.6-2.4) K/uL [place] # (Auto) 0.4 (0.0-0.8) K/uL Eos # (Auto) 0.0 (0.0-0.7) K/uL Baso # (Auto) 0.0 (0.0-0.1) K/uL Nucleated RBC % 0.0 /100WBC Nucleated RBCs # 0 K/uL INR Sodium 142 (136-145) mmol/L Potassium 3.4 L (3.5-5.1) mmol/L Chloride 110 H (98-107) mmol/L Carbon Dioxide 20.9 L (21.0-32.0) mmol/L BUN 9 (7.0-18.0) mg/dL Creatinine 0.8 (0.6-1.0) mg/dL Est Cr Clr Drug Dosing 69.16 mL/min Estimated GFR (MDRD) > 60.0 ml/min Glucose 91 (74-106) mg/dL POC Glucose 90 (60-110) mg/dL Calcium 8.6 (8.5-10.1) mg/dL Magnesium (1.5-2.0) mg/dL Total Bilirubin (0.2-1.0) mg/dL AST (15-37) IU/L ALT (14-63) IU/L Alkaline Phosphatase (46-116) U/L Troponin I (0.000-0.056) ng/mL Total Protein (6.4-8.2) g/dL Albumin (3.4-5.0) g/dL Globulin (2.0-3.5) g/dL Albumin/Globulin Ratio (1.3-2.8) Prolactin (0-27) ng/mL Urine Color Urine Appearance Urine pH (5.0-8.0) Ur Specific [place] (1.001-1.035) Urine Protein (NEGATIVE) mg/dL Urine Glucose (UA) (NEGATIVE) mg/dL Urine Ketones (NEGATIVE) mg/dL Urine Occult Blood (NEGATIVE) Urine Nitrite (NEGATIVE) Urine Bilirubin (NEGATIVE) Urine Urobilinogen (<2.0) EU/dL Ur Leukocyte Esterase (NEGATIVE) Urine RBC (0-2/HPF) Urine WBC (0-5/HPF) Ur Epithelial Cells (NONE-FEW) Urine Bacteria (NEGATIVE) Urine Opiates Screen (NEGATIVE) Ur Oxycodone Screen (NEGATIVE) Urine Methadone Screen (NEGATIVE) Ur Barbiturates Screen (NEGATIVE) Ur Phencyclidine Scrn (NEGATIVE) Ur Amphetamine Screen (NEGATIVE) U Methamphetamines Scrn (NEGATIVE) U Benzodiazepines Scrn (NEGATIVE) U Cocaine Metab Screen (NEGATIVE) U Marijuana (THC) Screen (NEGATIVE) Med Orders - Current: Current Medications Acetaminophen (Tylenol) 650 mg PO Q4H PRN PRN Reason: Pain (Mild 1-3)/fever Last Admin: 03/19/18 23:20 Dose: 650 mg Albuterol/Ipratropium (Duoneb 3.0-0.5 Mg/3 Ml) 3 ml NEB Q4HRRT PRN PRN Reason: Shortness Of Breath/wheezing Carbamazepine (Tegretol Xr) 200 mg PO DAILY@1200 [facility] Last Admin: 03/20/18 13:00 Dose: 200 mg Carbamazepine (Tegretol Xr) 200 mg PO DAILY [facility] Last Admin: 03/20/18 08:49 Dose: 200 mg Clonazepam (Klonopin) 2 mg PO TID [facility] Last Admin: 03/20/18 05:49 Dose: 2 mg Gabapentin (Neurontin) 800 mg PO TID [facility] Last Admin: 03/20/18 05:49 Dose: 800 mg Heparin Sodium (Porcine) (Heparin Sodium) 5,000 units SUBCUT Q12H [facility] Last Admin: 03/20/18 05:56 Dose: 5,000 units Sodium Chloride (Normal Saline) 1,000 mls @ 75 mls/hr IV ASDIRECTED [facility] Last Admin: 03/19/18 18:56 Dose: 75 mls/hr Multivitamins/Minerals/Vitamin C (Tab-A-Esa) 1 tab PO DAILY [facility] Last Admin: 03/20/18 08:49 Dose: 1 tab Pantoprazole Sodium (Protonix Iv) 40 mg IVPUSH Q24H [facility] Last Admin: 03/19/18 20:38 Dose: 40 mg Zonisamide [Zonegran (] 300 Mg) 1 each PO DAILY [facility] Last Admin: 03/20/18 13:11 Dose: Not Given Zonisamide [Zonegran (] 900 Mg) 1 each PO BEDTIME [facility] Promethazine HCl (Phenergan) 25 mg PO Q6H PRN PRN Reason: Nausea/Vomiting Last Admin: 03/20/18 00:45 Dose: 25 mg Scopolamine (Transderm-Scop) 1.5 mg TRDERM Q72H [facility] Last Admin: 03/19/18 20:29 Dose: 1.5 mg Sertraline HCl (Zoloft) 100 mg PO DAILY [facility] Last Admin: 03/20/18 09:00 Dose: Not Given Sodium Chloride (Saline Flush) 10 ml FLUSH ASDIRECTED PRN PRN Reason: Keep Vein Open Sodium Chloride (Saline Flush) 2.5 ml FLUSH ASDIRECTED PRN PRN Reason: Keep Vein Open Discontinued Medications Ketorolac Tromethamine (Toradol) 30 mg IVPUSH ONETIME ONE Stop: 03/19/18 16:55 Last Admin: 03/19/18 18:15 Dose: 30 mg Naloxone HCl (Narcan) 0.4 mg IVPUSH ONETIME ONE Stop: 03/19/18 15:01 Last Admin: 03/19/18 15:05 Dose: 0.4 mg Potassium Chloride (Potassium Chloride) 40 meq PO ONETIME ONE Stop: 03/19/18 17:47 Last Admin: 03/19/18 18:58 Dose: 40 meq Promethazine HCl (Phenergan) 25 mg PO Q4H PRN PRN Reason: Nausea/Vomiting
[2018-03-20 13:31] VITALS: BP 95/59
[2018-03-20] MEDS ORDERED: ZONISAMIDE PO SCH (21:00)
--- NOTE | 2018-03-22 09:34 | CR ---
EXAM DATE: 03/19/18 PATIENT'S AGE: 37 Patient: February Facility: [place], [place] Site . Site : [id number] Study: XRay Chest [id number]/4/2018 4:54:15 PM Ordering Physician: Anish Sidhu Final Report: INDICATION: syncope TECHNIQUE: Chest 1 view COMPARISON: None FINDINGS: Cardiovascular and mediastinum: Heart size and vasculature are normal in caliber and appearance. Mediastinum is within normal limits. Lungs and pleural space: No focal consolidations. No sign of pleural effusion. No pneumothorax. Bones and soft tissues: No significant findings. IMPRESSION: No acute cardiopulmonary disease. Dictated by Oscar Wells MD @ 03/19/2018 5:03:50 PM Dictated by: Oscar Wells MD @ 03/19/2018 17:03:57 (Electronic Signature) Report Signed by Proxy. [facility]IATRIC CENTERColleen
== END 2018-03-20 15:00 | disposition home or self-care (01) ==
LOC: MW.ED 14:52 → MW.MS 16:54
PROVIDERS: ADMIT Internal Medicine; ATTEND Internal Medicine
DX: R55 Syncope and collapse (principal); G43.909 Migraine, unspecified, not intractable, without status migrainosus; G40.909 Epilepsy, unspecified, not intractable, without status epilepticus; F41.9 Anxiety disorder, unspecified; K21.9 Gastro-esophageal reflux disease without esophagitis; E66.9 Obesity, unspecified; Z68.30 Body mass index [BMI] 30.0-30.9, adult; Z79.899 Other long term (current) drug therapy; Z88.8 Allergy status to other drugs, medicaments and biological substances; Z88.5 Allergy status to narcotic agent; Z98.51 Tubal ligation status; Z87.891 Personal history of nicotine dependence; Z86.69 Personal history of other diseases of the nervous system and sense organs
CPT/HCPCS: 36415; 70450; 71045; 80048; 80053; 80305; 81001; 82962; 83735; 84146; 84484; 85025; 85610; 93005; 96372; 96374; 96375; 99285; A9270; C9113; G0378; J1644; J1885; J7040; 99284

== ENCOUNTER 2018-05-18 09:34 | Emergency (ER) | payer MEDICARE, MEDICAID ==
[2018-05-18] MEDS ORDERED: Ketorolac 60 MG/2 ML SDV IM ONE (10:13)
[2018-05-18] MEDS ORDERED: Ketorolac 60 MG/2 ML SDV ONE (10:14)
--- NOTE | 2018-05-18 10:16 | EDM.PDOC ---
ED HPI GENERAL MEDICAL PROBLEM - General Chief Complaint: Lower Extremity Injury/Pain Stated Complaint: UNK ISSUES Time Seen by Provider: 05/18/18 11:00 Source of Information: Reports: Patient - History of Present Illness INITIAL COMMENTS - FREE TEXT/NARRATIVE: HISTORY AND PHYSICAL: History of present illness: [[birth year] 7-year-old female here for headache, neck and back pain. She states that between midnight and 2am she fell down the stairs. She states that she felt a little bit lightheaded and dizzy and slipped down the stairs. She denies any loss of consciousness before and after falling. She reports that she hit her head on every step on the way down. She denies any vomiting, blurred vision. She reports she is dizzy now "like she is on a boat" and nauseas. Headache is worsening to a migraine now. Patient reports that she does not feel safe at home living with her boyfriend. She denies any domestic abuse today. Past medical history of seizure disorder and migraines. ] Review of systems: As per history of present illness and below otherwise all systems reviewed and negative. Past medical history: As per history of present illness and as reviewed below otherwise noncontributory. Surgical history: Patient reports history of tubal ligation Social history: No reported history of drug or alcohol abuse. Family history: As per history of present illness and as reviewed below otherwise noncontributory. Physical exam: HEENT: No hemotympanum. Serous fluid behind both ears. Atraumatic, normocephalic , pupils reactive, negative for conjunctival pallor or scleral icterus, mucous membranes moist, throat clear, neck supple, nontender, trachea midline. Lungs: Clear to auscultation, breath sounds equal bilaterally, chest nontender. Heart: S1S2, regular, negative for clicks, rubs, or JVD. Abdomen: Soft, nondistended, nontender. Negative for masses or hepatosplenomegaly. Negative for costovertebral tenderness. Pelvis: Stable nontender. Genitourinary: Deferred. Rectal: Deferred. Extremities: Tender to palpation of cervical spine C6-7. Tender to cervical, thoracic, and lumbar paraspinals. Normal ROM of shoulders. Atraumatic, negative for cords or calf pain. Neurovascular unremarkable. Neuro: Awake, alert, oriented. Cranial nerves II through XII unremarkable. Cerebellum unremarkable. Motor and sensory unremarkable throughout. Exam nonfocal. Notes: Consult with advocate from Crisis [facility]. Patient and mom now tell me that she is not concerned for her safety in the home. Patient reports improvement in dizziness and nausea with phenergan. Diagnostics: [Head CT Neck CT Maxillofacial CT Therapeutics: [60mg IM Toradol 25mg IM phenergan 50mg IM Benadryl 1mg IM Ativan] Impression: [Migraine Neck/back pain] Plan: Diclofenac 75mg BID [#1 take medication as prescribed #2 follow up with your primary care provider #3 Return to ED as needed as discussed ] Definitive disposition and diagnosis as appropriate pending reevaluation and review of above. Onset: Today Duration: Resolved Prior to Arrival Headache Pain Score (Numeric/FACES): 10 - Related Data Allergies Allergy/AdvReac Type Severity Reaction Status Date / Time meperidine [From Demerol] Allergy Hives Verified 05/18/18 09:51 methylprednisolone Allergy Nausea and Verified 05/18/18 09:51 [From Medrol] Vomiting nalbuphine [From Nubain] Allergy Nausea and Verified 05/18/18 09:51 Vomiting ondansetron Allergy Hives Verified 05/18/18 09:51 [From Zofran (as hydrochloride)] rizatriptan [From Maxalt] Allergy Rash Verified 05/18/18 09:51 sulfamethoxazole Allergy Itching Verified 05/18/18 09:51 [From Bactrim] sumatriptan [From Imitrex] Allergy Headache Verified 05/18/18 09:51 trimethoprim [From Bactrim] Allergy Itching Verified 05/18/18 09:51 Home Meds: Home Meds Gabapentin [Neurontin] 800 mg PO TID 03/19/18 [History] Methocarbamol [Robaxin-750] 1 tab PO Q6H PRN 03/19/18 [History] Multivitamin [Multi-Vitamin Daily] 1 each PO DAILY 03/19/18 [History] Pantoprazole Sodium [Protonix] 1 tab PO DAILY 03/19/18 [History] Promethazine [Phenergan] 1 tab PO Q6H PRN 03/19/18 [History] Sertraline [Zoloft] 1 tab PO DAILY 03/19/18 [History] Zonisamide [Zonegran] 300 mg PO DAILY 03/19/18 [History] Zonisamide [Zonegran] 900 mg PO DAILY 03/19/18 [History] carBAMazepine [Carbamazepine ER] 200 mg PO DAILY 03/19/18 [History] carBAMazepine [carBAMazepine ER] 1 tab PO ASDIRECTED 03/19/18 [History] clonazePAM [Klonopin] 1 tab PO TID 03/19/18 [History] Diclofenac Sodium [Diclofenac Sodium ER] 75 mg PO BIDMEALS #20 tab.sr.24h [Rx] Past Medical History HEENT History: Reports: None Other HEENT History: oral surgery, top and bottom dentures, wears glasses Cardiovascular History: Reports: None Respiratory History: Reports: None Gastrointestinal History: Reports: Cholelithiasis, GERD Genitourinary History: Reports: None HYDROTHERAPIST History: Reports: 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 History: Reports: None Neurological History: Reports: Migraines, Other (See Below) Other Neuro History: Epilepsy Psychiatric History: Reports: Anxiety Endocrine/Metabolic History: Reports: Obesity/BMI 30+ Hematologic History: Reports: None Immunologic History: Reports: None Oncologic (Cancer) History: Reports: None Dermatologic History: Reports: None - Infectious Disease History Infectious Disease History: Reports: Chicken Pox, Measles, Mumps - Past Surgical History Head Surgeries/Procedures: Reports: None HEENT Surgical History: Reports: Oral Surgery Cardiovascular Surgical History: Reports: None Respiratory Surgical History: Reports: None GI Surgical History: Reports: None Female Surgical History: Reports: Tubal Ligation Other Female Surgeries/Procedures: ovarian cystectomy Endocrine Surgical History: Reports: None Neurological Surgical History: Reports: None 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 Surgical History: Reports: None Dermatological Surgical History: Reports: None Social & Family History - Family History Family Medical History: Noncontributory - Tobacco Use Smoking Status *Q: Former Smoker Used Tobacco, but Quit: Yes Month/Year Tobacco Last Used: 2014 - Caffeine Use Caffeine Use: Reports: Coffee, Soda - Recreational Drug Use Recreational Drug Use: No Review of Systems - Review of Systems Review Of Systems: ROS reveals no pertinent complaints other than HPI. ED EXAM, GENERAL - Physical Exam Exam: See Below (see dictation) Course - Vital Signs Last Recorded V/S: Last Vital Signs Temp 36.1 C 05/18/18 09:48 Pulse 71 05/18/18 09:48 Resp 16 05/18/18 09:48 BP 150/75 H 05/18/18 09:48 Pulse Ox 98 05/18/18 09:48 - Orders/Labs/Meds Meds: Medications Discontinued Medications Generic Name Dose Route Start Last Admin Trade Name Amara PRN Reason Stop Dose Admin Diphenhydramine HCl 50 mg 05/18/18 12:19 05/18/18 12:54 Benadryl IVPUSH 05/18/18 12:20 Not Given ONETIME ONE Diphenhydramine HCl 50 mg 05/18/18 12:25 05/18/18 12:33 Benadryl IM 05/18/18 12:26 50 mg ONETIME ONE Administration Ketorolac Tromethamine 60 mg 05/18/18 10:13 05/18/18 10:17 Toradol IM 05/18/18 10:14 60 mg ONETIME ONE Administration Ketorolac Tromethamine Confirm 05/18/18 10:14 05/18/18 11:00 Toradol Administered 05/18/18 10:15 Not Given Dose 60 mg .ROUTE .STK-MED ONE Lorazepam 1 mg 05/18/18 12:20 05/18/18 12:32 Ativan IM 05/18/18 12:21 1 mg ONETIME ONE Administration Promethazine HCl 25 mg 05/18/18 10:48 05/18/18 10:53 Phenergan IM 05/18/18 10:49 25 mg ONETIME ONE Administration Promethazine HCl Confirm 05/18/18 10:50 05/18/18 11:00 Phenergan Administered 05/18/18 10:51 Not Given Dose 25 mg .ROUTE .STK-MED ONE Departure - Departure Time of Disposition: 13:01 Disposition: Home, Self-Care 01 Condition: Good Clinical Impression: Neck pain, Migraine - Discharge Information Prescriptions: Diclofenac Sodium [Diclofenac Sodium ER] 75 mg PO BIDMEALS #20 tab.sr.24h Instructions: Fall Prevention in the Home, Tyel-wi-Ebic, Muscle Strain, Easy-to -Read Referrals: PCP,Unknown [Primary Care Provider] - Forms: ED Department Discharge Additional Instructions: The following information is given to patients seen in the emergency department who are being discharged to home. This information is to outline your options for follow-up care. We provide all patients seen in our emergency department with a follow-up referral. The need for follow-up, as well as the timing and circumstances, are variable depending upon the specifics of your emergency department visit. If you don't have a primary care physician on staff, we will provide you with a referral. We always advise you to contact your personal physician following an emergency department visit to inform them of the circumstance of the visit and for follow-up with them and/or the need for any referrals to a consulting specialist. The emergency department will also refer you to a specialist when appropriate. This referral assures that you have the opportunity for follow-up care with a specialist. All of these measure are taken in an effort to provide you with optimal care, which includes your follow-up. Under all circumstances we always encourage you to contact your private physician who remains a resource for coordinating your care. When calling for follow-up care, please make the office aware that this follow-up is from your recent emergency room visit. If for any reason you are refused follow-up, please contact the [facility] Emergency Department at and asked to speak to the emergency department charge nurse. [address] [address] #1 take medication as prescribed #2 follow up with your primary care provider #3 Return to ED as needed as discussed
[2018-05-18] MEDS ORDERED: Promethazine 25 MG/ML SDV IM ONE (10:48)
[2018-05-18] MEDS ORDERED: Promethazine 25 MG/ML SDV ONE (10:50)
--- NOTE | 2018-05-18 11:05 | CT ---
EXAMINATION: CT cervical spine HISTORY: Head and neck injury COMPARISON: None TECHNIQUE: Axial CT images obtained through the cervical spine without contrast. Coronal and sagittal reconstructions obtained. FINDINGS: The cervical spinal alignment is normal. The vertebral body heights and disc spaces appear well-maintained. There is no fracture or acute osseous abnormality. Bone mineralization is normal. Tracie ng apices are clear. There is a 1.8 cm left thyroid nodule. Otherwise the paravertebral soft tissues are normal. IMPRESSION: 1. No acute findings noted within the cervical spine. 2. There is a 1.8 cm left thyroid nodule, follow-up with ultrasound may be beneficial if not previous ly performed.
[2018-05-18] MEDS ORDERED: diphenhydrAMINE 50 MG/ML SDV IVPUSH ONE (12:19)
[2018-05-18] MEDS ORDERED: LORazepam 2 MG/ML SDV IM ONE (12:20)
[2018-05-18] MEDS ORDERED: diphenhydrAMINE 50 MG/ML SDV IM ONE (12:25)
--- NOTE | 2018-05-18 12:38 | CT ---
EXAMINATION: Non contrast CT head and facial bones. Coronal and sagittal reformats. HISTORY: Injury FINDINGS: CT head: No evidence of intra or extra axial hemorrhage, mass, midline shift, hydrocephalus or edema . No hypoattenuation changes in the major vascular territories to suggest acute infarct. No abnormal intracranial calcifications are detected. No evidence of substantial vascular calcificat ions. The paranasal sinuses and mastoid air cells are well aerated without substantial findings. Pi tuitary fossa appears unremarkable. Calvarium is intact. No evidence of skull fracture. CT facial bones: The nasal bones appear intact. Orbital and maxillary bond are preserved. Diaphragma tic arches and pterygoid plates are intact. The maxilla is otherwise intact. The mandible is normal. Orbits and globes are symmetric. Parotid and submandibular glands are symmetric. IMPRESSION: 1. No acute intracranial findings. 2. No acute facial bone injury identified.
[2018-05-18 13:22] VITALS: BP 100/76
== END 2018-05-18 13:19 | disposition home or self-care (01) ==
LOC: MW.ED 09:34
DX: G43.909 Migraine, unspecified, not intractable, without status migrainosus (principal); M54.2 Cervicalgia; W10.9XXA Fall (on) (from) unspecified stairs and steps, initial encounter; G40.909 Epilepsy, unspecified, not intractable, without status epilepticus; K21.9 Gastro-esophageal reflux disease without esophagitis; Z79.899 Other long term (current) drug therapy; Z87.891 Personal history of nicotine dependence; Z88.8 Allergy status to other drugs, medicaments and biological substances
CPT/HCPCS: 70450; 70486; 72125; 96372; 99284; J1200; J1885; J2060; J2550

== ENCOUNTER 2018-08-12 18:30 | Emergency (ER) | payer MEDICARE, MEDICAID ==
[2018-08-12] MEDS ORDERED: HYDROmorphone 1 MG/ML Syringe IVPUSH ONE (19:24)
[2018-08-12] MEDS ORDERED: Sodium Chloride 0.9% 1,000 ML IV ONE (19:24)
[2018-08-12] MEDS ORDERED: diphenhydrAMINE 50 MG/ML SDV IVPUSH ONE (19:24)
[2018-08-12] MEDS ORDERED: Sodium Chloride 0.9% 2.5 ML Syringe FLUSH PRN (19:24)
[2018-08-12] MEDS ORDERED: LORazepam 2 MG/ML SDV IVPUSH ONE (19:24)
[2018-08-12] MEDS ORDERED: Sodium Chloride 0.9% 10 ML Syringe FLUSH PRN (19:24)
[2018-08-12] MEDS ORDERED: Prochlorperazine 10 MG/2 ML SDV IM ONE (19:25)
--- NOTE | 2018-08-12 19:28 | EDM.PDOC ---
ED HPI GENERAL MEDICAL PROBLEM - General Chief Complaint: Headache Stated Complaint: HAVE A MIGRANE Time Seen by Provider: 08/12/18 19:26 Source of Information: Reports: Patient History Limitations: Reports: No Limitations - History of Present Illness INITIAL COMMENTS - FREE TEXT/NARRATIVE: HISTORY AND PHYSICAL: []37-year-old female presenting with migraine headache that this been present for the last 4 days History of Present Illness: []Patient is seen by neurologist at home and is not able to get in at this time. Nausea present. no vomiting. pain wraps over the top of head denies cough, cold, fever. Review of Systems: As per history of present illness and below otherwise all systems reviewed and negative. Past medical history: As per history of present illness and as reviewed below otherwise noncontributory. Surgical history: As per history of present illness and as reviewed below otherwise noncontributory. Social history: No reported history of drug or alcohol abuse. Family history: As per history of present illness and as reviewed below otherwise noncontributory. Physical exam: Alert female who is photophobic answering questions appropriately in full sentences without any shift breath. HEENT: Atraumatic, normocehpalic, pupils reactive, negative for conjunctival pallor or scleral icterus, mucous membranes moist, throat clear, neck supple, nontender, trachea midline. Lungs: Clear to auscultation, breath sounds equal bilaterally, chest non tender. Heart: S1S2, regular, negative for clicks, rubs, or JVD. Abdomen: Soft, nondistended, nontender. Negative for masses or hepatossplenmegaly. Negative for costovertebral tenderness. Pelvis: Stable nontender. Genitourinary: Deferred. Rectal: Deferred Extremities: Atraumatic, negative for cords or calf pain. Wrestling intact Neurovascular unremarkable. Neuro: Awake, alert, oriented. Cranial nerves II through XII unremarkable. Cerebellum unremarkable. Motor and sensory unremarkable throughout. Exam nonfocal. Patient is denying need for head CT this has been completed within the last year she does not feels that this is not a necessary test Patient is aware of my concerns that the new "wave" across the top of her head has changed to the presentation of her migraine Diagnostics: [] Therapeutics: []Normal saline Ativan Benadryl Phenergan Dilaudid Impression: []Migraine Plan: []Discharged home Sleep Follow up with your neurologist Return to the emergency department instructed and discussed Definitive disposition and diagnosis as appropriate pending reevaluation and review of above. Onset: Sudden Duration: Day(s): (4), Getting Worse Location: Reports: Head Quality: Reports: Stabbing, Throbbing Severity: Severe Improves with: Reports: None Worsens with: Reports: None Associated Symptoms: Reports: Nausea/Vomiting headache Pain Score (Numeric/FACES): 10 - Related Data Allergies Allergy/AdvReac Type Severity Reaction Status Date / Time meperidine [From Demerol] Allergy Hives Verified 08/12/18 19:01 methylprednisolone Allergy Nausea and Verified 08/12/18 19:01 [From Medrol] Vomiting nalbuphine [From Nubain] Allergy Nausea and Verified 08/12/18 19:01 Vomiting ondansetron Allergy Hives Verified 08/12/18 19:01 [From Zofran (as hydrochloride)] rizatriptan [From Maxalt] Allergy Rash Verified 08/12/18 19:01 sulfamethoxazole Allergy Itching Verified 08/12/18 19:01 [From Bactrim] sumatriptan [From Imitrex] Allergy Headache Verified 08/12/18 19:01 trimethoprim [From Bactrim] Allergy Itching Verified 08/12/18 19:01 Home Meds: Home Meds Gabapentin [Neurontin] 800 mg PO TID 03/19/18 [History] Methocarbamol [Robaxin-750] 1 tab PO Q6H PRN 03/19/18 [History] Multivitamin [Multi-Vitamin Daily] 1 each PO DAILY 03/19/18 [History] Pantoprazole Sodium [Protonix] 1 tab PO DAILY 03/19/18 [History] Promethazine [Phenergan] 1 tab PO Q6H PRN 03/19/18 [History] Sertraline [Zoloft] 1 tab PO DAILY 03/19/18 [History] Zonisamide [Zonegran] 300 mg PO DAILY 03/19/18 [History] Zonisamide [Zonegran] 900 mg PO DAILY 03/19/18 [History] carBAMazepine [Carbamazepine ER] 200 mg PO DAILY 03/19/18 [History] carBAMazepine [carBAMazepine ER] 1 tab PO ASDIRECTED 03/19/18 [History] clonazePAM [Klonopin] 1 tab PO TID 03/19/18 [History] Past Medical History HEENT History: Reports: None Other HEENT History: oral surgery, top and bottom dentures, wears glasses Cardiovascular History: Reports: None Respiratory History: Reports: None Gastrointestinal History: Reports: Cholelithiasis, GERD Genitourinary History: Reports: 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: 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 History: Reports: None Neurological History: Reports: Migraines, Other (See Below) Other Neuro History: Epilepsy Psychiatric History: Reports: Anxiety Endocrine/Metabolic History: Reports: Obesity/BMI 30+ Hematologic History: Reports: None Immunologic History: Reports: None Oncologic (Cancer) History: Reports: None Dermatologic History: Reports: None - Infectious Disease History Infectious Disease History: Reports: Chicken Pox, Measles, Mumps - Past Surgical History Head Surgeries/Procedures: Reports: None HEENT Surgical History: Reports: Oral Surgery Cardiovascular Surgical History: Reports: None Respiratory Surgical History: Reports: None GI Surgical History: Reports: None Female Surgical History: Reports: Tubal Ligation Other Female Surgeries/Procedures: ovarian cystectomy Endocrine Surgical History: Reports: None Neurological Surgical History: Reports: None 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 Surgical History: Reports: None Dermatological Surgical History: Reports: None Social & Family History - Family History Family Medical History: Noncontributory - Tobacco Use Smoking Status *Q: Former Smoker Used Tobacco, but Quit: Yes Month/Year Tobacco Last Used: 3 - Caffeine Use Caffeine Use: Reports: None - Recreational Drug Use Recreational Drug Use: No ED ROS GENERAL - Review of Systems Review Of Systems: ROS reveals no pertinent complaints other than HPI. - Physical Exam Exam: See Below (see dictation) Course - Vital Signs Last Recorded V/S: Last Vital Signs Temp 36.7 C 08/12/18 19:03 Pulse 91 08/12/18 19:03 Resp 18 08/12/18 19:03 BP 122/78 08/12/18 19:03 Pulse Ox 98 08/12/18 19:03 - Orders/Labs/Meds Orders: Active Orders 24 hr Category Date Time Status Head wo Cont [CT] Stat Exams 08/12/18 21:00 Ordered Sodium Chloride 0.9% [Saline Flush] Med 08/12/18 19:24 Active 10 ml FLUSH ASDIRECTED PRN Sodium Chloride 0.9% [Saline Flush] Med 08/12/18 19:24 Active 2.5 ml FLUSH ASDIRECTED PRN Saline Lock Insert [OM.PC] Stat Oth 08/12/18 19:24 Ordered Medication Orders Sodium Chloride (Saline Flush) 10 ml FLUSH ASDIRECTED PRN PRN Reason: Keep Vein Open Sodium Chloride (Saline Flush) 2.5 ml FLUSH ASDIRECTED PRN PRN Reason: Keep Vein Open Meds: Medications Generic Name Dose Route Start Last Admin Trade Name Freq PRN Reason Stop Dose Admin Sodium Chloride 10 ml 08/12/18 19:24 Saline Flush FLUSH ASDIRECTED PRN Keep Vein Open Sodium Chloride 2.5 ml 08/12/18 19:24 Saline Flush FLUSH ASDIRECTED PRN Keep Vein Open Discontinued Medications Generic Name Dose Route Start Last Admin Trade Name Freq PRN Reason Stop Dose Admin Diphenhydramine HCl 50 mg 08/12/18 19:24 08/12/18 19:40 Benadryl IVPUSH 08/12/18 19:25 50 mg ONETIME ONE Administration Hydromorphone HCl 1 mg 08/12/18 19:24 08/12/18 19:41 Dilaudid IVPUSH 08/12/18 19:25 1 mg ONETIME ONE Administration Sodium Chloride 1,000 mls @ 999 mls/hr 08/12/18 19:24 08/12/18 19:40 Normal Saline IV 08/12/18 20:24 999 mls/hr STAT ONE Administration Lorazepam 1 mg 08/12/18 19:24 08/12/18 19:40 Ativan IVPUSH 08/12/18 19:25 1 mg ONETIME ONE Administration Prochlorperazine Edisylate 10 mg 08/12/18 19:25 08/12/18 20:20 Compazine IM 08/12/18 19:26 Not Given ONETIME ONE Promethazine HCl 25 mg 08/12/18 19:52 08/12/18 20:06 Phenergan IM 08/12/18 19:53 25 mg ONETIME ONE Administration Departure - Departure Time of Disposition: 21:12 Disposition: Home, Self-Care 01 Condition: Fair Clinical Impression: Migraine - Discharge Information *PRESCRIPTION DRUG MONITORING PROGRAM REVIEWED*: Not Applicable *COPY OF PRESCRIPTION DRUG MONITORING REPORT IN PATIENT BEATRICE: Not Applicable Instructions: Recurrent Migraine Headache, [id number] Referrals: PCP,None [Primary Care Provider] - Forms: ED Department Discharge Additional Instructions: The following information is given to patients seen in the emergency department who are being discharged to home. This information is to outline your options for follow-up care. We provide all patients seen in our emergency department with a follow-up referral. The need for follow-up, as well as the timing and circumstances, are variable depending upon the specifics of your emergency department visit. If you don't have a primary care physician on staff, we will provide you with a referral. We always advise you to contact your personal physician following an emergency department visit to inform them of the circumstance of the visit and for follow-up with them and/or the need for any referrals to a consulting specialist. The emergency department will also refer you to a specialist when appropriate. This referral assures that you have the opportunity for followup care with a specialist. All of these measure are taken in an effort to provide you with optimal care, which includes your followup. Under all circumstances we always encourage you to contact your private physician who remains a resource for coordinating your care. When calling for followup care, please make the office aware that this follow-up is from your recent emergency room visit. If for any reason you are refused follow-up, please contact the [facility] emergency department at and asked to speak to the emergency department charge nurse. Discharged home Sleep Follow up with your neurologist Return to the emergency department instructed and discussed - My Orders Last 24 Hours: My Active Orders 08/12/18 19:24 Sodium Chloride 0.9% [Saline Flush] 10 ml FLUSH ASDIRECTED PRN Sodium Chloride 0.9% [Saline Flush] 2.5 ml FLUSH ASDIRECTED PRN Saline Lock Insert [OM.PC] Stat 08/12/18 21:00 Head wo Cont [CT] Stat - Assessment/Plan Last 24 Hours: My Active Orders 08/12/18 19:24 Sodium Chloride 0.9% [Saline Flush] 10 ml FLUSH ASDIRECTED PRN Sodium Chloride 0.9% [Saline Flush] 2.5 ml FLUSH ASDIRECTED PRN Saline Lock Insert [OM.PC] Stat 08/12/18 21:00 Head wo Cont [CT] Stat
[2018-08-12] MEDS ORDERED: Promethazine 25 MG/ML SDV IM ONE (19:52)
[2018-08-12 21:22] VITALS: BP 115/76
== END 2018-08-12 21:25 | disposition home or self-care (01) ==
LOC: MW.ED 18:30
DX: G43.909 Migraine, unspecified, not intractable, without status migrainosus (principal); K21.9 Gastro-esophageal reflux disease without esophagitis; F41.9 Anxiety disorder, unspecified; Z79.899 Other long term (current) drug therapy; Z88.8 Allergy status to other drugs, medicaments and biological substances; Z88.1 Allergy status to other antibiotic agents; Z88.5 Allergy status to narcotic agent
CPT/HCPCS: 96361; 96372; 96374; 96375; 99283; J1170; J1200; J2060; J2550; J7040

== ENCOUNTER 2019-01-28 19:18 | Emergency (ER) | payer MEDICARE, MEDICAID ==
[2019-01-28] MEDS ORDERED: LORazepam 2 MG/ML SDV IM STA (19:23)
--- NOTE | 2019-01-28 19:25 | EDM.PDOC ---
ED HPI GENERAL MEDICAL PROBLEM - General Chief Complaint: Chest Pain Stated Complaint: SOB, & TIGHTNESS OF CHEST Time Seen by Provider: 01/28/19 19:22 - History of Present Illness INITIAL COMMENTS - FREE TEXT/NARRATIVE: HISTORY AND PHYSICAL: History of present illness: Patient is a 38-year-old white female with history of anxiety who presents with a concern of anxiety attack with chest pain shortness of breath. Review of systems: As per history of present illness and below otherwise all systems reviewed and negative. Past medical history: As per history of present illness and as reviewed below otherwise noncontributory. Surgical history: As per history of present illness and as reviewed below otherwise noncontributory. Social history: No reported history of drug or alcohol abuse. Family history: As per history of present illness and as reviewed below otherwise noncontributory. Physical exam: HEENT: Atraumatic, normocephalic, pupils reactive, negative for conjunctival pallor or scleral icterus, mucous membranes moist, throat clear, neck supple, nontender, trachea midline. Lungs: Clear to auscultation, breath sounds equal bilaterally, chest nontender. Heart: S1S2, regular, negative for clicks, rubs, or JVD. Abdomen: Soft, nondistended, nontender. Negative for masses or hepatosplenomegaly. Negative for costovertebral tenderness. Pelvis: Stable nontender. Genitourinary: Deferred. Rectal: Deferred. Extremities: Atraumatic, negative for cords or calf pain. Neurovascular unremarkable. Neuro: Awake, alert, anxious, oriented. Cranial nerves II through XII unremarkable. Cerebellum unremarkable. Motor and sensory unremarkable throughout. Exam nonfocal. Diagnostics: Chest x-ray EKG cardiac cath tech Therapeutics: Ativan 1 mg IM Impression: #1 atypical chest pain #2 acute anxiety Definitive disposition and diagnosis as appropriate pending reevaluation and review of above. - Related Data Allergies Allergy/AdvReac Type Severity Reaction Status Date / Time meperidine [From Demerol] Allergy Hives Verified 01/28/19 19:22 methylprednisolone Allergy Nausea and Verified 01/28/19 19:22 [From Medrol] Vomiting nalbuphine [From Nubain] Allergy Nausea and Verified 01/28/19 19:22 Vomiting ondansetron Allergy Hives Verified 01/28/19 19:22 [From Zofran (as hydrochloride)] rizatriptan [From Maxalt] Allergy Rash Verified 01/28/19 19:22 sulfamethoxazole Allergy Itching Verified 01/28/19 19:22 [From Bactrim] sumatriptan [From Imitrex] Allergy Headache Verified 01/28/19 19:22 trimethoprim [From Bactrim] Allergy Itching Verified 01/28/19 19:22 Home Meds: Home Meds Multivitamin [Multi-Vitamin Daily] 1 each PO DAILY 03/19/18 [History] Zonisamide [Zonegran] 300 mg PO DAILY 03/19/18 [History] Zonisamide [Zonegran] 900 mg PO DAILY 03/19/18 [History] carBAMazepine [Carbamazepine ER] 200 mg PO BID 03/19/18 [History] clonazePAM [Klonopin] 2 tab PO TID 03/19/18 [History] Cyclobenzaprine [Flexeril] 10 mg PO TID #21 tab 09/15/18 [Rx] Diclofenac Sodium [Voltaren 1%] 1 applic TP QID #1 tube 09/15/18 [Rx] Erenumab-Aooe [Aimovig Autoinjector] 70 mg SQ ASDIRECTED 09/15/18 [History] Gabapentin [Neurontin] 800 mg PO DAILY 09/15/18 [History] Ibuprofen [Motrin] 800 mg PO TID 09/15/18 [History] Methocarbamol [Robaxin] 750 mg PO TID 09/15/18 [History] Promethazine [Phenergan] 25 mg PO Q8H PRN 09/15/18 [History] QUEtiapine [SEROquel] 100 mg PO DAILY 09/15/18 [History] ZOLMitriptan [Zomig] 5 mg PO DAILY 09/15/18 [History] Past Medical History HEENT History: Reports: None Other HEENT History: oral surgery, top and bottom dentures, wears glasses Cardiovascular History: Reports: None Respiratory History: Reports: None Gastrointestinal History: Reports: Cholelithiasis, GERD Genitourinary History: Reports: None [employer]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: 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 History: Reports: None Neurological History: Reports: Migraines, Other (See Below) Other Neuro History: Epilepsy Psychiatric History: Reports: Anxiety, Other (See Below) Other Psychiatric History: insomnia Endocrine/Metabolic History: Reports: Obesity/BMI 30+ Hematologic History: Reports: None Immunologic History: Reports: None Oncologic (Cancer) History: Reports: None Dermatologic History: Reports: None - Infectious Disease History Infectious Disease History: Reports: Chicken Pox - Past Surgical History Head Surgeries/Procedures: Reports: None HEENT Surgical History: Reports: Oral Surgery Cardiovascular Surgical History: Reports: None Respiratory Surgical History: Reports: None GI Surgical History: Reports: None Female Surgical History: Reports: Tubal Ligation Other Female Surgeries/Procedures: ovarian cystectomy Endocrine Surgical History: Reports: None Neurological Surgical History: Reports: None 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 Surgical History: Reports: None Dermatological Surgical History: Reports: None Social & Family History - Family History Family Medical History: Noncontributory - Caffeine Use Caffeine Use: Reports: None Caffeine Use Comment: currently trying to quit caffinee use ED ROS GENERAL - Review of Systems Review Of Systems: ROS reveals no pertinent complaints other than HPI. ED EXAM, GENERAL - Physical Exam Exam: See Below (See dictation) Departure - Departure Time of Disposition: 19:24 Disposition: Home, Self-Care 01 Condition: Good Clinical Impression: Atypical chest pain, Anxiety - Discharge Information Additional Instructions: The following information is given to patients seen in the emergency department who are being discharged to home. This information is to outline your options for follow-up care. We provide all patients seen in our emergency department with a follow-up referral. The need for follow-up, as well as the timing and circumstances, are variable depending upon the specifics of your emergency department visit. If you don't have a primary care physician on staff, we will provide you with a referral. We always advise you to contact your personal physician following an emergency department visit to inform them of the circumstance of the visit and for follow-up with them and/or the need for any referrals to a consulting specialist. The emergency department will also refer you to a specialist when appropriate. This referral assures that you have the opportunity for followup care with a specialist. All of these measure are taken in an effort to provide you with optimal care, which includes your followup. Under all circumstances we always encourage you to contact your private physician who remains a resource for coordinating your care. When calling for followup care, please make the office aware that this follow-up is from your recent emergency room visit. If for any reason you are refused follow-up, please contact the [facility] emergency department at and asked to speak to the emergency department charge nurse. Follow-up private medical doctor as discussed continue current medications return as needed as discussed
--- NOTE | 2019-01-28 20:30 | CR ---
HISTORY: Anxiety. COMPARISON: 03/19/2018 FINDINGS: A portable erect AP view of the chest was obtained at 1935 hours. The lungs remain clear. No focal or diffuse infiltrates are present. The heart remains normal in size. The mediastinum is normal in appearance. Again seen is minimal scoliosis of the thoracic spine convex towards the right. IMPRESSION: No active disease seen in the chest. Dictated by Jaycob Baldwin MD @ Jan 28 2019 8:28PM Signed by Dr. Jaycob Baldwin @ Jan 28 2019 8:29PM
[2019-01-28 20:44] VITALS: BP 104/75
== END 2019-01-28 20:35 | disposition home or self-care (01) ==
LOC: MW.ED 19:18
DX: F41.9 Anxiety disorder, unspecified (principal); R07.89 Other chest pain; K21.9 Gastro-esophageal reflux disease without esophagitis; Z79.899 Other long term (current) drug therapy
CPT/HCPCS: 71045; 93005; 96372; 99285; J2060; 99283